=== PATIENT | male | born 1965 | race Caucasian/White ===

== ENCOUNTER 2020-10-26 07:34 | Outpatient (REF) | payer OTHER, SELFPAY ==
[2020-10-26 11:29] LABS: Alanine Aminotransferase 19 U/L (0-40); Albumin Level 4.4 g/dL (3.5-5.0); Alkaline Phosphatase 115 U/L (39-117); Anion Gap 14 (12-20); Aspartate Amino Transferase 13 U/L (5-37); Bilirubin Total 0.6 mg/dL (0.0-1.0); Blood Urea Nitrogen 22 mg/dL (9-16); Calcium 8.8 mg/dL (8.4-10.2); Carbon Dioxide 24 mmol/L (22-29); Chloride 102 mmol/L (96-108); Estimated Glomerular Filt Rate > 60; Glucose Random 198 mg/dL (60-115); Potassium 4.5 mmol/l (3.3-5.1); Sodium 135 mmol/L (135-145); Total Protein 6.6 g/dL (6.5-8.0)
[2020-10-26 11:40] LABS: Estimated Average Glucose 174 mg/dL; Hemoglobin A1c % 7.7 %
[2020-10-26 11:42] LABS: Creatinine Urine 117.11 mg/dL; Microalbum/Creatinine Ratio Ur 9.3 ug/mg cr
[2020-10-27 13:37] LABS: Immunoglobulin A 179 mg/dL (47-310)
[2020-10-28 14:58] LABS: Transglutaminase Ab IgG 2 U/mL; Transglutaminase IgA 1 U/mL
[2020-10-29 16:22] LABS: Gliadin Deamidated IgA Ab 3 Units; Gliadin Deamidated IgG Ab 1 Units
[2020-10-30 15:37] LABS: Endomysial IgA Antibody Negative (Negative)
== END 2020-10-26 07:35 | disposition home or self-care (01) ==
LOC: HO.HMGCLDS 07:34
PROVIDERS: PCP Internal Medicine; Visit Provider Internal Medicine
DX: R19.7 Diarrhea, unspecified (principal); I10 Essential (primary) hypertension; G47.9 Sleep disorder, unspecified; E11.9 Type 2 diabetes mellitus without complications; F41.9 Anxiety disorder, unspecified; R80.9 Proteinuria, unspecified; F17.200 Nicotine dependence, unspecified, uncomplicated
CPT/HCPCS: 36415; 80053; 82043; 82784; 83036; 83516; 86255; 86256

== ENCOUNTER 2020-11-07 07:19 | Day surgery (SDC) | payer OTHER, SELFPAY ==
[2020-11-01 15:01] VITALS: BMI 27.3
--- NOTE | 2020-11-06 10:18 | HO.ANESPROP2 ---
Documented by User: Flaquita Davis 11/06/20 13:50 HPI - Anesthesia Eval Consult details Narrative: 55yo M for Colonoscopy PMFSH Past Medical History Medical History (Updated 11/06/20 @ 13:50 by Flaquita Davis) Anxiety CAD (coronary artery disease) Chronic back pain Depression Diabetes History of kidney stones Hx of myocardial infarction Hyperlipidemia Hypertension On beta marii at home PONV (postoperative nausea and vomiting) Family History Family History (Updated 11/05/20 @ 11:39 by Debra Zuniga, RMA, OCCUPATIONAL SAFETY AND HEALTH MANAGER) Father CAD (coronary artery disease) HTN (hypertension) Hyperlipidemia Mother No problems noted. Brother No problems noted. Daughter No problems noted. Daughter No problems noted. Surgical History Surgical History (Updated 11/01/20 @ 14:52 by Maryjane Mooney) History of amputation of finger of left hand History of back surgery History of lithotripsy Hx of colonoscopy Hx of coronary angioplasty Hx of tonsillectomy Social History Social History Smoking Status: Current every day smoker Packs Per Day: 0.5 Cigarettes Per Day: 10.0 Smoked in Last 30 Days: Yes Patient Interested in Nicotine Replacement: No Patient Given Instructions on How to Stop Smoking: Yes Date Education Initiated: 11/01/20 Use of substances other than those prescribed or required for medical reasons: No Substance Use Type Other:: Rx Marijuana Substance Use Frequency: Daily Advance Directives: No Advance Directives Information Provided: No Advance Directives on File: No Recently lost weight without trying: No Meds Allergies Allergy/AdvReac Type Severity Reaction Status Date / Time lisinopril [LISINOPRIL] Allergy Unknown TONGUE Verified 11/07/20 08:04 SWELLING, anaphylaxis, swelling Home Medications Medication Instructions Recorded Confirmed Type allopurinol 1 tab PO DAILY 11/01/20 11/01/20 History atorvastatin 1 tab PO DAILY 11/01/20 11/01/20 History losartan 1 tab PO DAILY 11/01/20 11/01/20 History metformin 1 tab PO BID 11/01/20 11/01/20 History metoprolol succinate 1 tab PO DAILY 11/01/20 11/01/20 History potassium citrate 2 tab PO BID 11/01/20 11/01/20 History Exam Exam Date and Time: November 06, 2020 1018 Height,Weight and Vital Signs: Height 6 ft 3 in Weight 99.337 kg Pertinent Lab Results Pertinent Lab Results: Laboratory Tests 07/04/20 10/26/20 07:52 07:46 WBC 10.5 Hgb 14.6 Hct 43.4 Plt Count 169 Sodium 135 Potassium 4.5 Chloride 102 Carbon Dioxide 24 BUN 22 H Creatinine 1.09 Assessment and Plan Assessment Anesthesia Assessment: Chart Reviewed Documented by User: Shanna Rodriguez 11/07/20 08:38 PMFSH Past Medical History Medical History (Updated 11/06/20 @ 13:50 by Flaquita Davis) Anxiety CAD (coronary artery disease) Chronic back pain Depression Diabetes History of kidney stones Hx of myocardial infarction Hyperlipidemia Hypertension On beta marii at home PONV (postoperative nausea and vomiting) Family History Family History (Updated 11/05/20 @ 11:39 by Debra Zuniga, RMA, OCCUPATIONAL SAFETY AND HEALTH MANAGER) Father CAD (coronary artery disease) HTN (hypertension) Hyperlipidemia Mother No problems noted. Brother No problems noted. Daughter No problems noted. Daughter No problems noted. Surgical History Surgical History (Updated 11/01/20 @ 14:52 by Maryjane Mooney) History of amputation of finger of left hand History of back surgery History of lithotripsy Hx of colonoscopy Hx of coronary angioplasty Hx of tonsillectomy Social History Social History Smoking Status: Current every day smoker Packs Per Day: 0.5 Cigarettes Per Day: 10.0 Smoked in Last 30 Days: Yes Patient Interested in Nicotine Replacement: No Patient Given Instructions on How to Stop Smoking: Yes Date Education Initiated: 11/01/20 Use of substances other than those prescribed or required for medical reasons: No Substance Use Type Other:: Rx Marijuana Substance Use Frequency: Daily Advance Directives: No Advance Directives Information Provided: No Advance Directives on File: No Recently lost weight without trying: No Meds Allergies Allergy/AdvReac Type Severity Reaction Status Date / Time lisinopril [LISINOPRIL] Allergy Unknown TONGUE Verified 11/07/20 08:04 SWELLING, anaphylaxis, swelling Home Medications Medication Instructions Recorded Confirmed Type allopurinol 1 tab PO DAILY 11/01/20 11/01/20 History atorvastatin 1 tab PO DAILY 11/01/20 11/01/20 History losartan 1 tab PO DAILY 11/01/20 11/01/20 History metformin 1 tab PO BID 11/01/20 11/01/20 History metoprolol succinate 1 tab PO DAILY 11/01/20 11/01/20 History potassium citrate 2 tab PO BID 11/01/20 11/01/20 History Exam Airway Mallampati Class: II (Sip water with meds) TM Dist: >3cm Neck ROM: Full Heart: RRR Lungs: CTA BL Assessment and Plan Assessment Anesthesia Assessment: Anesthesia Plan Discussed and Chart Reviewed Final Anesthetic Review NPO: Yes ASA Class: II Final Preanesthetic Review: Meds/Allgs Chart Reviewed and Consent Obtained/Reviewed Patient Risk: Intermediate Procedure Risk: Intermediate Anesthetic Plan Anesthetic Plan: MAC: Disposition: Standard PACU
[2020-11-07 08:05] VITALS: BP 119/75; PULSE 65; RESP 18; TEMP 36.1; O2SAT 98
[2020-11-07] MEDS: Lactated Ringers 1,000 ML 100 ML IVCONT (08:14)
[2020-11-07 08:29] LABS: Glucose, Whole Blood 183 mg/dL (60-115)
[2020-11-07 09:37] VITALS: BP 103/59; PULSE 60; RESP 14; TEMP 36.4; O2SAT 94
--- NOTE | 2020-11-07 09:42 | PM.OP ---
Brief Operative Note Date of Service: 11/07/20 Pre-op diagnosis: Screening History of colon polyps Post-op diagnosis: other (Colon polyps, Diverticulosis, Internal hemorrhoids) Procedure: Colonoscopy to cecum and TI with snare polypectomy, biopsy and removal of polyps, and placement of 1 Resolution clip on the cecal polypectomy site Surgeon: Arnol Fonseca Anesthesia: MAC Estimated blood loss (mL): 4.0 Pathology: other (A. Cecal polyp B. Ascending colon polyps C. Polyp at 50cm D. Transverse colon polyp E. Rectal polyp) Condition: stable Disposition: PACU
[2020-11-07 09:58] VITALS: BP 114/83; PULSE 58; RESP 16; TEMP 36.4; O2SAT 97
--- NOTE | 2020-11-07 10:21 | HO.POSTANES ---
Post Anesthesia Evaluation Post Anesthesia Evaluation Vital Signs: Vital Signs Temp Pulse Resp BP Pulse Ox 11/07/20 09:58 97.5 F 58 16 114/83 97 11/07/20 09:37 97.5 F 60 14 103/59 L 94 11/07/20 08:05 97 F 65 18 119/75 98 Anesthesia: Monitored Mental Status: Awake Pain Control: Satisfactory Nausea/Vomiting: None Hydration: Adequate Anesthesia-Related Issues: No Anes. Related Issues
--- NOTE | 2020-11-07 10:52 | OP_ITS ---
SURGEON: Arnol Fonseca MD INDICATIONS: Full consent has been obtained from him for this, including risks of bleeding and perforation. PREOPERATIVE DIAGNOSIS: POSTOPERATIVE DIAGNOSIS: PROCEDURE PERFORMED: Colonoscopy to cecum and terminal ileum with snare polypectomy, biopsy and removal of polyps, and placement of a resolution clip on the cecal polypectomy site. ESTIMATED BLOOD LOSS: COMPLICATIONS: ANESTHESIA: Monitored anesthesia care. ASSISTANTS: SPECIMENS: PREOPERATIVE DIAGNOSES: Colorectal cancer screening and personal history of tubular adenoma of the colon. POSTOPERATIVE DIAGNOSES: Colorectal cancer screening and personal history of tubular adenoma of the colon, colon polyps, diverticulosis and internal hemorrhoids. DESCRIPTION OF PROCEDURE: The patient was placed in the left lateral decubitus position. The digital rectal exam revealed no abnormalities. The Olympus video pediatric colonoscope was entered into the rectum and advanced easily to the cecum. Once in the cecum, I did identify cecal pouch with appendiceal orifice and a normal-appearing ileocecal valve. The terminal ileum was cannulated and appeared normal. The scope was withdrawn back in the colon. The entire cecum was well visualized. In the cecum, outside the appendiceal orifice, was an approximately 5 or 6 mm grossly adenomatous polyp. This was snared and recovered by suction. There was some persistent oozing, which was initially cauterized and then a single resolution clip was placed on the polypectomy site with good hemostasis. The area was irrigated and observed and there was no further bleeding. The scope was slowly withdrawn assessing all mucosal surfaces carefully. Preparation was excellent. In the ascending colon were multiple polyps between 5 and 8 mm in size which were all snared and recovered by suction. There were 1 or 2 smaller polyps which were approximately 2 or 3 mm in diameter and were completely removed with cold biopsy forceps. These were all placed in the same container. All of the polypectomy sites done with the snare appeared clean, without any sign of residual polyp nor bleeding. Of note, one of the polyps appeared somewhat atypical with a very long stalk and almost appeared to be consistent with a pseudopolyp, although there was no evidence of any inflammatory bowel disease. In the transverse colon was a flat approximately 6 mm grossly adenomatous polyp, which was snared and recovered by suction. The polypectomy site appeared clean, without any sign of residual polyp nor bleeding. At 50 cm, there was another grossly adenomatous polyp, 8 mm in diameter, which was snared and recovered by suction. The polypectomy site appeared clean, without any sign of residual polyp nor bleeding. In the rectum, was an approximately 10 mm polyp, which was snared and recovered by suction. The polypectomy site appeared clean, without any sign of residual polyp nor bleeding. I did not visualize any other polyps, colitis, nor angiodysplasia. There was a mild amount of sigmoid diverticulosis. In the rectum, the scope was retroflexed visualizing internal hemorrhoids, but no other pathology. The rectal mucosa appeared normal. The scope was straightened and withdrawn from the patient. He tolerated the procedure well and was returned to the recovery area in stable condition. IMPRESSION: 1. Colon polyps, status post snare polypectomy, and biopsy and removal. 2. Placement of a single resolution clip on the cecal polypectomy site. 3. Diverticulosis. 4. Internal hemorrhoids. PLAN: The results of the pathology will be checked. Given the multiple number of polyps today, I would recommend a repeat colonoscopy in 3 years for further screening and surveillance. He was advised not to use any aspirin nor NSAIDs for at least 1 week. He will otherwise see me on a p.r.n. basis. This has been discussed with his . MD TEJAS Flores/YULY / [id number] MTDJessi
== END 2020-11-07 10:25 | disposition home or self-care (01) ==
PROVIDERS: PCP Internal Medicine; Visit Provider Internal Medicine
PROC: 0DJD8ZZ Inspection of Lower Intestinal Tract, Via Natural or Artificial Opening Endoscopic (ICD-10-PCS; CPT 45378; principal; 2020-11-07 08:30)
DX: Z12.11 Encounter for screening for malignant neoplasm of colon (principal); D12.0 Benign neoplasm of cecum; D12.2 Benign neoplasm of ascending colon; D12.3 Benign neoplasm of transverse colon; D12.8 Benign neoplasm of rectum; K57.30 Diverticulosis of large intestine without perforation or abscess without bleeding; K64.8 Other hemorrhoids; Z86.010 Personal history of colon polyps; E11.9 Type 2 diabetes mellitus without complications; Z79.84 Long term (current) use of oral hypoglycemic drugs
CPT/HCPCS: 45385; 45380; 82947; 88305

== ENCOUNTER 2021-03-11 08:38 | Outpatient (REF) | payer OTHER, SELFPAY ==
[2021-03-11 11:14] LABS: MANUAL DIFF FLAG NO
[2021-03-11 11:44] LABS: Basophils Percent Auto 0.4 % (0-2); Eosinophils Absolute Auto 0.2 X10*3/uL (0.0-0.4); Eosinophils Percent Auto 1.9 % (0-4); Hematocrit 45.3 % (42-52); Imm Gran Abs Auto 0.02 X10*3/uL (0.00-0.03); Imm Gran Pct Auto 0.2 % (0.0-0.4); Lymphocytes Absolute Auto 3.5 X10*3/uL (1.2-4.9); Lymphocytes Percent Auto 36.7 % (20-40); Mean Corpuscular HGB Conc 33.1 g/dl (31.0-36.0); Mean Corpuscular Hemoglobin 32.1 pg (27.0-33.0); Mean Corpuscular Volume 96.8 fL (80-98); Mean Platelet Volume 10.7 fL (9.4-12.4); Monocytes Absolute Auto 0.8 X10*3/uL (0.1-1.2); Monocytes Percent Auto 8.5 % (2-11); Neutrophils Percent Auto 52.3 % (45-73); Platelet Count 172 X10*3/uL (160-400); Red Blood Count 4.68 X10*6/uL (4.60-5.80); Red Cell Distribution Width 13.3 % (11.0-16.0); White Blood Count 9.6 X10*3/uL (4.8-10.8)
[2021-03-11 11:48] LABS: Alanine Aminotransferase 13 U/L (0-40); Albumin Level 4.4 g/dL (3.5-5.0); Alkaline Phosphatase 111 U/L (39-117); Anion Gap 16 (12-20); Aspartate Amino Transferase 12 U/L (5-37); Bilirubin Direct 0.2 mg/dL (0.0-0.5); Bilirubin Total 0.6 mg/dL (0.0-1.0); Blood Urea Nitrogen 13 mg/dL (9-16); Calcium 8.8 mg/dL (8.4-10.2); Carbon Dioxide 23 mmol/L (22-29); Chloride 103 mmol/L (96-108); Cholesterol 131 mg/dL; Estimated Glomerular Filt Rate > 60; Glucose Fasting 173 mg/dL (60-99); HDL Cholesterol 28 mg/dL; LDL Cholesterol Calculated 57 mg/dl; Sodium 138 mmol/L (135-145); Total Protein 6.7 g/dL (6.5-8.0); Triglycerides 231 mg/dL
[2021-03-11 12:11] LABS: Estimated Average Glucose 151 mg/dL; Hemoglobin A1c % 6.9 %
== END 2021-03-11 08:39 | disposition home or self-care (01) ==
LOC: HO.HMGCLDS 08:38
PROVIDERS: PCP Internal Medicine; Visit Provider Internal Medicine
DX: I10 Essential (primary) hypertension (principal); E11.9 Type 2 diabetes mellitus without complications; E78.5 Hyperlipidemia, unspecified; F32.9 Major depressive disorder, single episode, unspecified; F41.9 Anxiety disorder, unspecified
CPT/HCPCS: 36415; 80048; 80061; 80076; 83036; 85025

== ENCOUNTER 2021-07-10 10:25 | Outpatient (REF) | payer OTHER, SELFPAY ==
[2021-07-10 11:11] LABS: MANUAL DIFF FLAG NO
[2021-07-10 11:18] LABS: Basophils Percent Auto 0.4 % (0-2); Eosinophils Absolute Auto 0.1 X10*3/uL (0.0-0.4); Eosinophils Percent Auto 0.9 % (0-4); Hematocrit 46.9 % (42-52); Hemoglobin 15.6 g/dl (14.0-18.0); Imm Gran Abs Auto 0.03 X10*3/uL (0.00-0.03); Imm Gran Pct Auto 0.3 % (0.0-0.4); Lymphocytes Absolute Auto 3.9 X10*3/uL (1.2-4.9); Lymphocytes Percent Auto 37.1 % (20-40); Mean Corpuscular HGB Conc 33.3 g/dl (31.0-36.0); Mean Corpuscular Hemoglobin 31.8 pg (27.0-33.0); Mean Corpuscular Volume 95.7 fL (80-98); Mean Platelet Volume 9.9 fL (9.4-12.4); Monocytes Absolute Auto 0.8 X10*3/uL (0.1-1.2); Neutrophils Absolute Auto 5.5 X10*3/uL (2.0-8.3); Neutrophils Percent Auto 53.3 % (45-73); Platelet Count 206 X10*3/uL (160-400); Red Cell Distribution Width 13.2 % (11.0-16.0); White Blood Count 10.4 X10*3/uL (4.8-10.8)
[2021-07-10 12:38] LABS: Alanine Aminotransferase 20 U/L (0-40); Albumin Level 4.7 g/dL (3.5-5.0); Alkaline Phosphatase 110 U/L (39-117); Anion Gap 12 (12-20); Aspartate Amino Transferase 22 U/L (5-37); Bilirubin Total 0.7 mg/dL (0.0-1.0); Blood Urea Nitrogen 20 mg/dL (9-16); Calcium 10.2 mg/dL (8.4-10.2); Carbon Dioxide 26 mmol/L (22-29); Chloride 106 mmol/L (96-108); Estimated Glomerular Filt Rate 54; Glucose Random 113 mg/dL (60-115); Potassium 5.4 mmol/L (3.3-5.1); Sodium 139 mmol/L (135-145); Total Protein 7.2 g/dL (6.5-8.0)
[2021-07-10 12:42] LABS: Estimated Average Glucose 140 mg/dL; Hemoglobin A1c % 6.5 %
[2021-07-11 13:52] LABS: LDL Cholesterol Direct 112 mg/dL (<100)
== END 2021-07-10 10:26 | disposition home or self-care (01) ==
LOC: HO.HMGCLDS 10:25
PROVIDERS: PCP Internal Medicine; Visit Provider Internal Medicine
DX: Z00.01 Encounter for general adult medical examination with abnormal findings (principal); F41.9 Anxiety disorder, unspecified; F32.9 Major depressive disorder, single episode, unspecified; E11.9 Type 2 diabetes mellitus without complications; E78.5 Hyperlipidemia, unspecified; I10 Essential (primary) hypertension
CPT/HCPCS: 36415; 80053; 83036; 83721; 85025

== ENCOUNTER 2021-07-12 07:15 | Outpatient (REF) | payer OTHER, SELFPAY ==
[2021-07-12 12:07] LABS: Anion Gap 15 (12-20); Blood Urea Nitrogen 24 mg/dL (9-16); Carbon Dioxide 23 mmol/L (22-29); Chloride 104 mmol/L (96-108); Estimated Glomerular Filt Rate > 60; Potassium 4.7 mmol/L (3.3-5.1); Sodium 137 mmol/L (135-145)
== END 2021-07-12 07:16 | disposition home or self-care (01) ==
LOC: HO.HMGCLDS 07:15
PROVIDERS: PCP Internal Medicine; Visit Provider Internal Medicine
DX: E78.5 Hyperlipidemia, unspecified (principal)
CPT/HCPCS: 36415; 80051; 82565; 84520

== ENCOUNTER 2022-01-06 07:57 | Outpatient (REF) | payer OTHER, SELFPAY ==
[2022-01-06 11:17] LABS: MANUAL DIFF FLAG NO
[2022-01-06 11:24] LABS: Basophils Absolute Auto 0.1 X10*3/uL (0.0-0.2); Basophils Percent Auto 0.5 % (0-2); Eosinophils Absolute Auto 0.2 X10*3/uL (0.0-0.4); Eosinophils Percent Auto 1.6 % (0-4); Hematocrit 42.9 % (42.0-52.0); Hemoglobin 14.5 g/dl (14.0-18.0); Imm Gran Abs Auto 0.06 X10*3/uL (0.00-0.03); Imm Gran Pct Auto 0.5 % (0.0-0.4); Lymphocytes Absolute Auto 3.3 X10*3/uL (1.2-4.9); Lymphocytes Percent Auto 30.4 % (20-40); Mean Corpuscular HGB Conc 33.8 g/dl (31.0-36.0); Mean Corpuscular Hemoglobin 32.1 pg (27.0-33.0); Mean Corpuscular Volume 94.9 fL (80.0-98.0); Mean Platelet Volume 10.5 fL (9.4-12.4); Monocytes Absolute Auto 0.8 X10*3/uL (0.1-1.2); Monocytes Percent Auto 7.2 % (2-11); Neutrophils Absolute Auto 6.5 x10*3/uL (2.0-8.3); Neutrophils Percent Auto 59.8 % (45-73); Platelet Count 170 X10*3/uL (160-400); Red Blood Count 4.52 X10*6/uL (4.60-5.80); Red Cell Distribution Width 12.5 % (11.0-16.0); White Blood Count 10.9 X10*3/uL (4.8-10.8)
[2022-01-06 11:37] LABS: Alanine Aminotransferase 17 U/L (0-40); Albumin Level 4.4 g/dL (3.5-5.0); Alkaline Phosphatase 122 U/L (39-117); Anion Gap 11 (12-20); Aspartate Amino Transferase 15 U/L (5-37); Bilirubin Total 0.7 mg/dL (0.0-1.0); Blood Urea Nitrogen 12 mg/dL (9-16); Calcium 9.2 mg/dL (8.4-10.2); Carbon Dioxide 26 mmol/L (22-29); Chloride 104 mmol/L (96-108); Cholesterol 141 mg/dL; Estimated Glomerular Filt Rate > 60; Glucose Fasting 208 mg/dL (60-99); HDL Cholesterol 32 mg/dL; LDL Cholesterol Calculated 64 mg/dl; Potassium 4.2 mmol/L (3.3-5.1); Sodium 137 mmol/L (135-145); Total Protein 6.8 g/dL (6.5-8.0); Triglycerides 227 mg/dL
[2022-01-06 11:55] LABS: Creatinine Urine 221.26 mg/dL; Microalbum/Creatinine Ratio Ur 18.9 ug/mg cr
[2022-01-06 12:03] LABS: Estimated Average Glucose 154 mg/dL
== END 2022-01-06 07:58 | disposition home or self-care (01) ==
LOC: HO.HMGCLDS 07:57
PROVIDERS: Visit Provider Internal Medicine
DX: E11.9 Type 2 diabetes mellitus without complications (principal); E78.9 Disorder of lipoprotein metabolism, unspecified; F33.9 Major depressive disorder, recurrent, unspecified; F41.1 Generalized anxiety disorder; I10 Essential (primary) hypertension; E78.5 Hyperlipidemia, unspecified; F41.9 Anxiety disorder, unspecified
CPT/HCPCS: 36415; 80053; 80061; 82043; 83036; 85025

== ENCOUNTER → 2022-03-05 07:46 | Outpatient (BNVA) | payer OTHER, SELFPAY | PROVIDERS: PCP Internal Medicine; Referring Provider Internal Medicine; Visit Provider Internal Medicine | DX: I25.10 Atherosclerotic heart disease of native coronary artery without angina pectoris (principal); I10 Essential (primary) hypertension; E11.8 Type 2 diabetes mellitus with unspecified complications | CPT/HCPCS: 93005 ==

== ENCOUNTER → 2022-04-30 12:44 | Outpatient (REF) | payer OTHER, SELFPAY ==
--- NOTE | 2022-04-30 12:47 | CA_ITS ---
Transthoracic Echocardiogram Patient (Last, First, Middle): Patrick Meng M Gender: Male Date of : 1965 Age: 56 Procedure Date: 04/30/2022 Procedure Type: Transthoracic Echocardiogram Location: OP Height: 193.04 cm Weight: 99.79 kg BSA: 2.31 m2 Heart Rate: bpm BP: 110 / 80 mmHg Qual Research Manager: LUZ Ortiz MD: Ankur Javier MD Mine Car Dispatcher: Jordan Xiong MD Symptoms: I25.10 - Atherosclerotic heart disease of [place] coronary... Study Quality: Fair ECG Rhythm: Sinus Conclusions: - 1. Normal LV systolic function with LVEF of 55-60% with impaired relaxation filling pattern and basal and mid inferior wall motion abnormality 2. Normal cardiac valvular Doppler 3. Normal RV systolic pressure 4. No pericardial effusion Findings Left Ventricle Normal left ventricular size, thickness, and systolic function. The visually estimated ejection fraction is between 55-60%. Spectral Doppler is indicative of an impaired relaxation filling pattern. E/E prime ratio is between 8 and 15 consistent with indeterminate filling pressures. Wall Motion Rest Echo Findings The basal inferior and mid inferior segments are hypokinetic. All other scored wall segments showed normal motion. Right Ventricle Normal right ventricular cavity size and systolic function. Atria Both atria are normal in size. There is no evidence of interatrial shunt. Aortic Valve The aortic valve structure and function is likely normal. There is no aortic valve stenosis. There is no aortic valve regurgitation. Mitral Valve Normal mitral valve structure and function. There is trace mitral valve regurgitation. There is no mitral valve stenosis. Pulmonic Valve The pulmonic valve was not well visualized. Tricuspid Valve Likely normal tricuspid valve structure and function. There is trace tricuspid valve regurgitation. The right ventricular systolic pressure is normal. The right ventricular systolic pressure is 17 mmHg. Normal right atrial pressure. There is no evidence of pulmonary hypertension. Great Vessels All visible segments of the aorta are normal in size. The pulmonary artery was not well visualized. Venous The inferior vena cava is normal in size and collapses greater than 50% with inspiration. Pericardium/Pleural There is no evidence of pericardial effusion. Prior Study Comparison No prior study available for comparison. Measurements 2D Linear Measurements IVSd: 1.12 0.6-0.9/0.6-1.0 cm LVIDd: 4.69 3.9-5.3/4.2-5.9 cm LVIDd Index: 2.03 2.4-3.2/2.2-3.1 cm/m2 LVIDs: 3.23 2.0-3.6 cm LVPWd: 1.11 0.7-1.1 cm LA Diam: 3.30 2.7-3.8/3.0-4.0 cm LAIDs Index: 1.43 1.5-2.3 cm/m2 LV Mass: 237.34 67-162/88-224 g LV Mass Index: 102.74 43-95/49-115 g/m2 LVOT Diam: 2.20 3.0+(-)1.3 cm 2D Systolic Function EF 4C: 58.50 >55% EF 2C: 55.30 >55% EF BiP: 56.90 >55% Mitral Valve MV Pk E: 0.61 MV PK A: 0.54 MV Decel Time: 356.00 E/A: 1.10 E'Lateral: 8.70 E'Medial: 8.05 E/E' Med: 7.60 E/E' Lat: 7.00 PHT: 104.00 MVA PHT: 2.12 Decel Fallon: 1.71 Aortic Valve AoV Pk Trey: 1.33 AoV Mn Trey: 0.77 AoV VTI: 0.23 AoV Pk Grad: 7.00 Aov Mn Grad: 3.00 KEVIN Cont.VTI: 3.43 LVOT LVOT Pk Trey: 1.13 LVOT Mn Trey: 0.73 LVOT VTI: 0.21 LVOT Pk Grad: 5.00 LVOT Mn Grad: 3.00 LVOT Diam: 2.20 LVOT Area: 3.80 Diastolic Function MV Pk E: 0.61 MV Pk A: 0.54 E/A: 1.10 E'Medial: 8.05 E/E' Med: 7.60 E' Laterial: 8.70 E/E' Lat: 7.00 Right Ventricle TAPSE (mm): 18.90 TVS' Trey: 10.30 Tricuspid Valve TR Pk Trey: 1.85 TR Pk Grad: 14.00 RA Press: 3.00 RVSP: 17.00 Great Vessels Aorta Sinus of Valsalva: 3.46 2.0-3.[address] [place]: 3.26 1.7-3.4 cm Ao Asc: 3.70 2.1-3.4 cm Updated in Other Vendor System with Status of Final Jordan Xiong MD electronically signed on 05/01/2022 12:36:39 PM with status of Final
== END ==
LOC: HO.CARD 12:44
PROVIDERS: PCP Internal Medicine; Visit Provider Internal Medicine
DX: I25.10 Atherosclerotic heart disease of native coronary artery without angina pectoris (principal)
CPT/HCPCS: 93306

== ENCOUNTER → 2022-09-17 08:11 | Outpatient (REF) | payer OTHER, SELFPAY ==
--- NOTE | ~2022-09-17 | NM_ITS ---
Exercise Myocardial perfusion study Indication: Atherosclerotic coronary artery disease to evaluate for myocardial ischemia Technique: The patient was brought in for an exercise perfusion study on 09/17/2022. Patient performed exercise as per Bi protocol and was injected 35 mCi of sestamibi was given intravenously one target HR was achieved. Images were obtained using the SPECT gamma camera interlaced with the gating device. Images were obtained in supine position. Resting perfusion study was performed on 09/24/2022. Patient was administered 35 mCi of sestamibi intravenously at rest. Images were then obtained in supine position. Images obtained with and without CT attenuation. Total DLP 90 mGy-cm. Images were processed with the software and compared side to side in short axis, horizontal long axis and vertical long axis views. Findings: The stress perfusion study showed not images show moderately reduced uptake in the inferior wall of the LV myocardium. Remainder of the LV myocardium is normally perfused. Attenuation corrected images show normalized uptake in the inferior wall as well as normal uptake in the possible basal inferior remainder of the LV myocardium.. The gated study shows normal LV systolic function with calculated LVEF of 64%. LV cavity is normal in size. The gated study shows normal systolic wall thickening and contraction of all segments with probably mild hypokinesis of the basal inferior segment. There is no transient ischemic dilation. Resting study shows no change in perfusion pattern compared to stress perfusion study. Gating at rest reveals possible basal inferior wall motion with ejection fraction at 57%. The findings are consistent with no clear evidence of ischemia. Basal attenuation corrected. Normal uptake in all segments suggestive normal myocardial perfusion.. NM/NM cardiolite stress test Impression: 1. Normal myocardial perfusion, small area of nontransmural infarct of the basal inferior wall cannot be entirely ruled out 2. Gated LVEF is 64% 3. Transient ischemic dilatation not present Stress EKG is negative for ischemia
--- NOTE | 2022-09-17 08:13 | CA_ITS ---
Acquisition Time: 2022-09-17 08:33:40 Total Exercise Time: 00:07:05 Test Indications: LAD Medications: Protocol: ROMI Max HR: 144 BPM 88% of Pred: 162 BPM Max BP: 172/078 mmHG Max Work Load: 8.6 METS Exercise stress test with exercise 7 min 5 sec of Romi protocol, acheiving 87% MPHR with report of leg fatigue and request to stop, with mod sob, no chest discomfort, without arrythmia, with normotensive response to exercise, without EKG changes meeting criteria for ischemia, with ST scooping in recovery which is nonspecific. Breathing quickly improved with rest. Nuclear images pending. Test reviewed with Dr Bentley. Referred By: Ankur Javier Overread By: VIET MORTENSEN
== END ==
LOC: HO.CARD 08:11
PROVIDERS: PCP Internal Medicine; Visit Provider Internal Medicine
DX: I25.10 Atherosclerotic heart disease of native coronary artery without angina pectoris (principal)
CPT/HCPCS: 78452; 93017; A9500

== ENCOUNTER 2022-11-05 08:57 | Outpatient (REF) | payer OTHER, SELFPAY ==
[2022-11-05 11:48] LABS: Estimated Average Glucose 212 mg/dL
[2022-11-05 12:08] LABS: Alanine Aminotransferase 17 U/L (0-40); Albumin Level 4.4 g/dL (3.5-5.0); Alkaline Phosphatase 102 U/L (39-117); Anion Gap 10 (12-20); Aspartate Amino Transferase 14 U/L (5-37); Bilirubin Total 0.4 mg/dL (0.0-1.0); Blood Urea Nitrogen 11 mg/dL (9-16); Carbon Dioxide 28 mmol/L (22-29); Chloride 105 mmol/L (96-108); Cholesterol 129 mg/dL; Estimated Glomerular Filt Rate > 60; Glucose Fasting 257 mg/dL (60-99); HDL Cholesterol 30 mg/dL; LDL Cholesterol Calculated 79 mg/dl; Potassium 4.1 mmol/L (3.3-5.1); Sodium 139 mmol/L (135-145); Total Protein 6.5 g/dL (6.5-8.0); Triglycerides 104 mg/dL
[2022-11-05 12:38] LABS: Creatinine Urine 133.44 mg/dL; Microalbum/Creatinine Ratio Ur 28.4 ug/mg cr
== END 2022-11-05 08:58 | disposition home or self-care (01) ==
LOC: HO.HMGCLDS 08:57
PROVIDERS: PCP Internal Medicine; Visit Provider Internal Medicine
DX: E11.9 Type 2 diabetes mellitus without complications (principal); E78.9 Disorder of lipoprotein metabolism, unspecified; F33.9 Major depressive disorder, recurrent, unspecified; F41.1 Generalized anxiety disorder; G47.9 Sleep disorder, unspecified; I10 Essential (primary) hypertension; I25.10 Atherosclerotic heart disease of native coronary artery without angina pectoris
CPT/HCPCS: 36415; 80053; 80061; 82043; 83036

== ENCOUNTER → 2023-03-04 12:38 | Outpatient (BNVA) | payer OTHER, SELFPAY | PROVIDERS: PCP Internal Medicine; Referring Provider Internal Medicine; Visit Provider Internal Medicine | DX: I25.10 Atherosclerotic heart disease of native coronary artery without angina pectoris (principal); I10 Essential (primary) hypertension | CPT/HCPCS: 93005 ==

== ENCOUNTER 2023-06-17 06:32 | Outpatient (REF) | payer OTHER, SELFPAY ==
[2023-06-17 12:14] LABS: Alanine Aminotransferase 16 U/L (0-40); Albumin Level 4.2 g/dL (3.5-5.0); Alkaline Phosphatase 106 U/L (39-117); Aspartate Amino Transferase 15 U/L (5-37); Bilirubin Total 0.3 mg/dL (0.0-1.0); Blood Urea Nitrogen 19 mg/dL (9-16); Calcium 9.6 mg/dL (8.4-10.2); Chloride 104 mmol/L (96-108); Estimated Glomerular Filt Rate 59; Glucose Random 195 mg/dL (60-115); Potassium 4.4 mmol/L (3.3-5.1); Sodium 139 mmol/L (135-145); Total Protein 6.9 g/dL (6.5-8.0)
[2023-06-17 20:38] LABS: Carbon Dioxide 22 mmol/L (22-29)
== END 2023-06-17 06:33 | disposition home or self-care (01) ==
LOC: HO.HMGCLDS 06:32
PROVIDERS: PCP Internal Medicine; Visit Provider Internal Medicine
DX: E78.9 Disorder of lipoprotein metabolism, unspecified (principal); F33.9 Major depressive disorder, recurrent, unspecified; G47.9 Sleep disorder, unspecified; I10 Essential (primary) hypertension; F41.1 Generalized anxiety disorder
CPT/HCPCS: 36415; 80053

== ENCOUNTER 2023-06-24 12:11 | Outpatient (AMB) | payer OTHER, SELFPAY ==
[2023-06-24 12:13] VITALS: BP 138/86; PULSE 66; O2SAT 98; BMI 27.1
--- NOTE | 2023-06-24 12:13 | A.OFFPC_ITS ---
Vital Signs 06/24/23 12:13 Height 6 ft 3 in Weight 217 lb 2 oz BMI 27.1 BP 138/86 Blood Pressure Location Lt brachial Position Sitting Pulse 66 Pulse Source Pulse Oximeter Pulse Oximetry (%) 98 Oxygen Delivery Method Room Air Intake Visit Reasons: med follow up Allergies lisinopril [LISINOPRIL] Allergy (Unknown, Verified 06/24/23 12:13) TONGUE SWELLING, anaphylaxis, swelling Medication List - Last Reconciled 06/24/23 by Zoila Damian MD amlodipine 5 mg PO DAILY 90 days aspirin (Adult Low Dose Aspirin) 81 mg PO DAILY atorvastatin 80 mg PO DAILY blood sugar diagnostic (FreeStyle Lite Strips) Use to check fasting blood sugar daily. blood-glucose meter (FreeStyle Lite Meter kit) Use to check fasting blood sugar daily glipizide 10 mg PO BID 90 days lancets (FreeStyle Lancets) Use to check fasting blood sugar daily. metoprolol succinate ER 100 mg PO DAILY pioglitazone 45 mg PO DAILY quetiapine (Seroquel) 50 mg PO BEDTIME 90 days sertraline 200 mg (2 x 100 mg) PO DAILY 90 days Tobacco use date assessed: 06/24/23 Dental Screening Dental Screen Date: 06/24/23 Did you have a dental visit in the last 12 months?: Yes Did you have a dental problem in the last 6 months where you did not have access to dental care?: No Was dental information given to patient?: No HPI med follow up HPI Details Patient is 57-year-old male came in today for his follow-up appointment Hypertension: Patient is on amlodipine 5 mg and metoprolol 100 mg blood pressure is stable.? Continue to a statin to 80 mg for lipid control. No side effects Diabetes: he is taking glipizide 10 mg b.i.d., pioglitazone 15 mg his hemoglobin A1c came back at 8.4 I am increasing pioglitazone to 45 mg Major depression, patient is taking Seroquel 50 mg as a sleep aid at night and sertraline 200 mg daily. ?. . History of coronary artery disease with angioplasty 2006 currently seeing cardiology [facility] Follow-up 3 months [facility] Medical History CAD (coronary artery disease) Chronic back pain Depression History of kidney stones Hx of myocardial infarction On beta marii at home PONV (postoperative nausea and vomiting) Type 2 diabetes mellitus with unspecified complications Surgical History History of amputation of finger of left hand History of back surgery History of lithotripsy Hx of colonoscopy Hx of coronary angioplasty Hx of tonsillectomy Family History Father CAD (coronary artery disease) HTN (hypertension) Hyperlipidemia Mother No problems noted. Brother No problems noted. Daughter No problems noted. Daughter No problems noted. Social History Housing: House Alcohol intake: current Alcohol intake frequency: holidays/special occasions only Patient Tobacco Use Status: Current everyday Tobacco user Tobacco use type: Cigarette Cigarette Packs Per Day: 0.5 Cigarettes Per Day: 10.0 e-Cigarette/Vaping Use: Never Used service: No Current occupational status: retired Cognitive needs: No Hearing needs: No Vision needs: No Questionnaire PHQ-9 Over the last 2 weeks, how often have you been bothered by any of the following problems? 1. Little interest or pleasure in doing things: not at all 2. Feeling down, depressed, or hopeless: more than half the days 3. Trouble falling or staying asleep, or sleeping too much: nearly every day 4. Feeling tired or having little energy: nearly every day 5. Poor appetite or overeating: more than half the days 6. Feeling bad about yourself - or that you are a failure or have let yourself or your family down: more than half the days 7. Trouble concentrating on things, such as reading the newspaper or watching television: not at all 8. Moving or speaking so slowly that other people could have noticed. Or the opposite - being so fidgety or restless that you have been moving around a lot more than usual: nearly every day 9. Thoughts that you would be better off or of hurting yourself in some way: not at all Total score: 15 Source: Developed by Drs. Arnol Reynolds, Clary Martinez, Jose Coleman and colleagues, with an educational cornelio from [employer]. Thrive Questionnaire Date Thrive assessed: 06/24/23 I am a: Patient What is your living situation today?: I have a steady place to live Within the past 12 months, did the food you bought not last and you didn't have the money to get more?: Never true Within the past 12 months, did you worry whether your food would run out before you got money to buy more?: Never true Do you have trouble paying for medicines?: No Do you have trouble getting transportation to medical appointments?: No Do you have trouble paying your heating and electricity bill?: No Do you have trouble taking care of your child, family member or friend?: No Do you have trouble with day-to-day activities such as bathing, preparing meals, shopping, managing finances, etc.?: No Are you currently unemployed and looking for a job?: No Are you interested in more education?: No AUDIT C Alcohol Use Questionnaire (AUDIT-C) 1. How often do you have a drink containing alcohol?: Never 3. How often do you have six or more drinks on one occasion?: Never Total Score: 0 Score Reviewed/Action Taken: Yes UGO-7 AMB Questionnaire UGO-7 Date UGO - 7 assessed: 06/24/23 Feeling nervous, anxious, or on edge: 3 = Nearly every day Not being able to stop or control worryin = Nearly every day Worrying too much about different things: 3 = Nearly every day Trouble relaxin = Nearly every day Being so restless that it is hard to sit still: 3 = Nearly every day Becoming easily annoyed or irritable: 0 = Not at all Feeling afraid as if something awful might happen: 1 = Several days Total UGO-7 score (0-4 normal; 5-9 mild; 10-14 moderate; 15-21 severe): 16 Source: Developed by Drs. Arnol Reynolds, Clary Martinez, Jose Coleman and colleagues, with an educational cornelio from [employer]. Review of Systems Const Denies chills and Denies fever(s) ENT Denies epistaxis and Denies nasal discharge Card Denies chest pain Resp Denies chest congestion, Denies cough and Denies hemoptysis GI Denies diarrhea and Denies nausea Skin/Breast Denies rash Neuro Reports no additional complaints Psych Reports no additional complaints Endo Reports no additional complaints Physical exam (Primary Care) Vital Signs: Last Vital Signs Pulse 66 06/24/23 12:13 BP 138/86 06/24/23 12:13 Pulse Ox 98 06/24/23 12:13 Oxygen Delivery Method Room Air 06/24/23 12:13 BMI result Body Mass Index 27.1 Tobacco/Smoking Status: Tobacco use Status Tobacco use date assessed 06/24/23 06/24/23 12:14 Patient Tobacco Use Status Current everyday Tobacco 06/24/23 12:14 Tobacco use type Cigarette 06/24/23 12:14 e-Cigarette/Vaping Use Never Used 06/24/23 12:14 PHQ-9: PHQ-9 Score PHQ-9: Total score 15 06/24/23 12:42 Thrive Assessment: Date of Thrive Assessment Date Thrive assessed 06/24/23 06/24/23 12:42 Const General: cooperative, comfortable and no acute distress Orientation/consciousness: patient oriented x3 HENMT Head: Yes normocephalic Eyes General: appearance normal, both eyes and all related structures Neck Neck: Yes supple Resp Effort & Inspection: normal respiratory effort, no cough and no stridor Cardio Rhythm: regular rhythm Heart sounds: S1 normal heart sound present and S2 normal heart sound present Skin General skin exam: turgor normal Neuro General: patient oriented x3, tone normal and moves all extremities Extrem Right lower extremity: no edema Left lower extremity: no edema Results AMB Hemoglobin A1c AMB Hemoglobin A1c 8.4 % Last Edit by BIBIANA Saenz on 06/24/23 12:4 6 Results Reviewed Results Reviewed: Laboratory Last Values Hgb A1c (Clinic) 8.4 % (4.0-6.0) H 06/24/23 12:42 Assessment and Plan Assessment & Plan (1) Uncontrolled diabetes mellitus: (2) Hypertension, essential: Code(s): I10 - Essential (primary) hypertension (3) Difficulty sleeping: Code(s): G47.9 - Sleep disorder, unspecified (4) Lipid disorder: Code(s): E78.9 - Disorder of lipoprotein metabolism, unspecified (5) Anxiety, generalized: Code(s): F41.1 - Generalized anxiety disorder (6) Major depression, recurrent: Code(s): F33.9 - Major depressive disorder, recurrent, unspecified Plan Patient is 57-year-old male came in today for his follow-up appointment Hypertension: Patient is on amlodipine 5 mg and metoprolol 100 mg blood pressure is stable.? Continue to a statin to 80 mg for lipid control. No side effects Diabetes: he is taking glipizide 10 mg b.i.d., pioglitazone 15 mg his hemoglobin A1c came back at 8.4 I am increasing pioglitazone to 45 mg Major depression, patient is taking Seroquel 50 mg as a sleep aid at night and sertraline 200 mg daily. ?. . History of coronary artery disease with angioplasty 2006 currently seeing cardiology [facility] Follow-up 3 months Orders: Orders AMB Hemoglobin A1c Today Z13.9 - Encounter for screening, unspecified Medications: Changed From pioglitazone 15 mg PO DAILY 90 tabs 0RF To pioglitazone 45 mg PO DAILY 90 tabs 0RF Coding Level of Care Code Est Pt Level 4 (04266) Diagnoses Uncontrolled diabetes mellitus Hypertension, essential I10 Difficulty sleeping G47.9 Lipid disorder E78.9 Anxiety, generalized F41.1 Major depression, recurrent F33.9
== END 2023-06-24 13:29 | disposition home or self-care (01) ==
PROVIDERS: PCP Internal Medicine; Visit Provider Internal Medicine
DX: I10 Essential (primary) hypertension (principal); E11.9 Type 2 diabetes mellitus without complications; G47.9 Sleep disorder, unspecified; F33.9 Major depressive disorder, recurrent, unspecified; E78.9 Disorder of lipoprotein metabolism, unspecified; F41.1 Generalized anxiety disorder
CPT/HCPCS: 83036; 99214

== ENCOUNTER 2023-09-02 13:39 | Outpatient (AMB) | payer OTHER, SELFPAY ==
[2023-09-02 13:50] VITALS: BP 120/80; PULSE 77; O2SAT 95; BMI 27.3
--- NOTE | 2023-09-02 13:50 | MHC.PC.OV ---
Vital Signs 09/02/23 13:50 Height 6 ft 3 in Weight 218 lb 8 oz BMI 27.3 BP 120/80 Blood Pressure Location Rt brachial Position Sitting Pulse 77 Pulse Source Pulse Oximeter Pulse Oximetry (%) 95 Oxygen Delivery Method Room Air Intake Visit Reasons: PE Allergies lisinopril [LISINOPRIL] Allergy (Unknown, Verified 09/02/23 13:50) TONGUE SWELLING, anaphylaxis, swelling Medication List - Last Reconciled 09/02/23 by Zoila Damian MD amlodipine 5 mg PO DAILY 90 days aspirin (Adult Low Dose Aspirin) 81 mg PO DAILY atorvastatin 80 mg PO DAILY blood sugar diagnostic (FreeStyle Lite Strips) Use to check fasting blood sugar daily. blood-glucose meter (FreeStyle Lite Meter kit) Use to check fasting blood sugar daily glipizide 10 mg PO BID 90 days lancets (FreeStyle Lancets) Use to check fasting blood sugar daily. metoprolol succinate ER 100 mg PO DAILY pioglitazone 45 mg PO DAILY quetiapine (Seroquel) 50 mg PO BEDTIME 90 days sertraline 200 mg (2 x 100 mg) PO DAILY 90 days Tobacco use date assessed: 09/02/23 Dental Screening Dental Screen Date: 09/02/23 Did you have a dental visit in the last 12 months?: Yes Did you have a dental problem in the last 6 months where you did not have access to dental care?: No Was dental information given to patient?: Patient has dentist HPI PE HPI Details Patient is 57-year-old male came in today for physical exam He is due for colonoscopy 2024 Patient will have labs done before his next visit in 3 months Hypertension: Patient is on amlodipine 5 mg and metoprolol 100 mg blood pressure is stable.? Continue to a statin to 80 mg for lipid control. No side effects Diabetes: he is taking glipizide 10 mg b.i.d., pioglitazone 45 mg, patient is tolerating medications no side effects, also would recommend to control diet Major depression, patient is taking Seroquel 50 mg as a sleep aid at night and sertraline 200 mg daily. ?. . History of coronary artery disease with angioplasty 2006 currently seeing cardiology [facility] Follow-up 3 months, and physical exam 1 year [facility] Medical History Type 2 diabetes mellitus with unspecified complications History of kidney stones On beta marii at home PONV (postoperative nausea and vomiting) Chronic back pain Depression Hx of myocardial infarction CAD (coronary artery disease) Surgical History Hx of colonoscopy History of amputation of finger of left hand History of back surgery History of lithotripsy Hx of coronary angioplasty Hx of tonsillectomy Family History Father CAD (coronary artery disease) HTN (hypertension) Hyperlipidemia Mother No problems noted. Brother No problems noted. Daughter No problems noted. Daughter No problems noted. Social History Housing: House Alcohol intake: current Alcohol intake frequency: holidays/special occasions only Patient Tobacco Use Status: Current everyday Tobacco user Tobacco use type: Cigarette Cigarette Packs Per Day: 0.5 Cigarettes Per Day: 10.0 e-Cigarette/Vaping Use: Never Used service: No Current occupational status: retired Cognitive needs: No Hearing needs: No Vision needs: No Questionnaire PHQ-9 Over the last 2 weeks, how often have you been bothered by any of the following problems? 1. Little interest or pleasure in doing things: not at all 2. Feeling down, depressed, or hopeless: more than half the days 3. Trouble falling or staying asleep, or sleeping too much: nearly every day 4. Feeling tired or having little energy: nearly every day 5. Poor appetite or overeating: more than half the days 6. Feeling bad about yourself - or that you are a failure or have let yourself or your family down: more than half the days 7. Trouble concentrating on things, such as reading the newspaper or watching television: not at all 8. Moving or speaking so slowly that other people could have noticed. Or the opposite - being so fidgety or restless that you have been moving around a lot more than usual: nearly every day 9. Thoughts that you would be better off or of hurting yourself in some way: not at all Total score: 15 Depression Screening Interpretation: Positive Depression Screening Follow-up: Existing condition and In treatment Depression Screening Done: Yes [id number] - PHQ-9 Billing: Yes Source: Developed by Drs. Arnol Reynolds, Clary Martinez, Jose Coleman and colleagues, with an educational cornelio from [employer]. Thrive Questionnaire Date Thrive assessed: 06/24/23 AUDIT C Alcohol Use Questionnaire (AUDIT-C) 1. How often do you have a drink containing alcohol?: Monthly or less 2. How many drinks containing alcohol do you have on a typical day when you are drinking?: 1 or 2 3. How often do you have six or more drinks on one occasion?: Never Total Score: 1 Score Reviewed/Action Taken: Yes UGO-7 AMB Questionnaire UGO-7 Date UGO - 7 assessed: 06/24/23 Source: Developed by Drs. Arnol Reynolds, Clary Martinez, Jose Coleman and colleagues, with an educational cornelio from [employer]. Review of Systems Const Denies chills, Denies fever(s) and Denies headache(s) Eyes Denies blurry vision ENT Denies headache(s), Denies nasal discharge, Denies nasal obstruction, Denies odynophagia and Denies sinus pain Card Denies chest pain at rest and Denies chest pain with activity Resp Denies cough and Denies hemoptysis GI Denies diarrhea, Denies odynophagia, Denies vomiting and Denies hematemesis Reports as per HPI Musc Denies abnormal gait Skin/Breast Reports as per HPI Neuro Denies Neuro-related abnormal movements, Denies Abnormal speech present, Denies abnormal gait, Denies headache(s) and Denies Sensory deficit (Neuro) Psych Denies mood swings and Denies paranoia Endo Reports as per HPI Fran/Lymph Reports as per HPI Aller/Immun Reports as per HPI Physical exam (Primary Care) Vital Signs: Last Vital Signs Pulse 77 09/02/23 13:50 BP 120/80 09/02/23 13:50 Pulse Ox 95 09/02/23 13:50 Oxygen Delivery Method Room Air 09/02/23 13:50 BMI result Body Mass Index 27.3 Tobacco/Smoking Status: Tobacco use Status Tobacco use date assessed 09/02/23 09/02/23 13:51 Patient Tobacco Use Status Current everyday Tobacco 09/02/23 13:51 Tobacco use type Cigarette 09/02/23 13:51 e-Cigarette/Vaping Use Never Used 09/02/23 13:51 Depression Screening Interpretation: Positive Depression Screening Follow-up: Existing condition and In treatment Thrive Assessment: Date of Thrive Assessment Date Thrive assessed 06/24/23 09/02/23 13:51 Const General: cooperative, comfortable and no acute distress Orientation/consciousness: patient oriented x3 HENMT Head: Yes normocephalic and Yes atraumatic Eyes General: appearance normal, both eyes and all related structures Pupils: Equal, round and reactive pupils present EOM: EOMs intact bilaterally Neck Neck: Yes supple and No lymphadenopathy Thyroid: Thyroid normal Lymphatic: no lymphadenopathy noted Resp Effort & Inspection: normal respiratory effort and able to speak in complete sentences Auscultation: clear to auscultation bilaterally Cardio Heart sounds: S1 normal heart sound present and S2 normal heart sound present GI Palpation (GI): Soft to palpation and nontender Auscultation: normal bowel sounds General: Yes no CVA tenderness Back/Spine/Pelvis Back: no CVA tenderness Skin General skin exam: elasticity normal and turgor normal Neuro General: patient oriented x3 and gait normal Cranial nerves: Yes Equal, round and reactive pupils present Speech: No Abnormal speech present Sensory Exam: No Sensory deficit (Neuro) Coordination: tandem gait normal and Romberg test negative Extrem General: Yes normal exam except as noted and No edema Office Procedures Flu Questionnaire Does the patient have a severe egg allergy?: No Does the patient have severe life threatening allergies?: No Does the patient have a fever or illness today?: No Has the patient ever had Guillain-[place] Syndrome?: No Has the patient ever had any past reaction to a flu shot?: No Immunizations flu vacc [id number] 6mos up(PF) 60 mcg(15 mcgx4)/0.5 mL IM syringe Performing Provider: Zoila Damian MD Performing Location: [facility] Administered by: Johnny Herrera CMA on 09/02/23 14:20 Dose Route Admin Location Dispensed Lot Number Expiration Date NDC Manager Of Pmo 0.5 mL IM Left Deltoid 0.5 mL [id number] 05/29/24 [id number] AMS-Qi VIS Given Date VIS Provided VIS Publication Date 09/02/23 Single Vaccine 21 Eligibility Eligibility Date Funding Source Not [facility] Eligible 09/02/23 Private Assessment and Plan Assessment & Plan (1) Encounter for general adult medical examination with abnormal findings: Code(s): Z00.01 - Encounter for general adult medical examination with abnormal findings (2) Major depression, recurrent: Code(s): F33.9 - Major depressive disorder, recurrent, unspecified Qualifiers: Active/Remission status: in partial remission Qualified Code(s): F33.41 - Major depressive disorder, recurrent, in partial remission (3) Type 2 diabetes mellitus with unspecified complications: Code(s): E11.8 - Type 2 diabetes mellitus with unspecified complications (4) Hypertension, essential: Code(s): I10 - Essential (primary) hypertension (5) History of angioplasty: Code(s): Z98.62 - Peripheral vascular angioplasty status (6) Difficulty sleeping: Code(s): G47.9 - Sleep disorder, unspecified (7) Atherosclerotic cardiovascular disease: Code(s): I25.10 - Atherosclerotic heart disease of cahto coronary artery without angina pectoris (8) Ventral hernia: Code(s): K43.9 - Ventral hernia without obstruction or gangrene Qualifiers: Obstruction and gangrene presence: without obstruction or gangrene Qualified Code(s): K43.9 - Ventral hernia without obstruction or gangrene (9) Lipid disorder: Code(s): E78.9 - Disorder of lipoprotein metabolism, unspecified (10) Anxiety, generalized: Code(s): F41.1 - Generalized anxiety disorder Plan Patient is 57-year-old male came in today for physical exam He is due for colonoscopy 2024 Patient will have labs done before his next visit in 3 months Hypertension: Patient is on amlodipine 5 mg and metoprolol 100 mg blood pressure is stable.? Continue to a statin to 80 mg for lipid control. No side effects Diabetes: he is taking glipizide 10 mg b.i.d., pioglitazone 45 mg, patient is tolerating medications no side effects, also would recommend to control diet Major depression, patient is taking Seroquel 50 mg as a sleep aid at night and sertraline 200 mg daily. ?. . History of coronary artery disease with angioplasty 2006 currently seeing cardiology [facility] Follow-up 3 months, and physical exam 1 year Orders: Orders Comprehensive Met. Panel Today E11.8 - Type 2 diabetes mellitus with unspecified complications, F33.9 - Major depressive disorder, recurrent, unspecified, G47.9 - Sleep disorder, unspecified, I10 - Essential (primary) hypertension, I25.10 - Atherosclerotic heart disease of cahto coronary artery without angina pectoris, K43.9 - Ventral hernia without obstruction or gangrene, Z00.01 - Encounter for general adult medical examination with abnormal findings, Z98.62 - Peripheral vascular angioplasty status Hemoglobin A1c Today E11.8 - Type 2 diabetes mellitus with unspecified complications, F33.9 - Major depressive disorder, recurrent, unspecified, G47.9 - Sleep disorder, unspecified, I10 - Essential (primary) hypertension, I25.10 - Atherosclerotic heart disease of cahto coronary artery without angina pectoris, K43.9 - Ventral hernia without obstruction or gangrene, Z00.01 - Encounter for general adult medical examination with abnormal findings, Z98.62 - Peripheral vascular angioplasty status Microalbumin, Random (w Creat) Today E11.8 - Type 2 diabetes mellitus with unspecified complications, F33.9 - Major depressive disorder, recurrent, unspecified, G47.9 - Sleep disorder, unspecified, I10 - Essential (primary) hypertension, I25.10 - Atherosclerotic heart disease of cahto coronary artery without angina pectoris, K43.9 - Ventral hernia without obstruction or gangrene, Z00.01 - Encounter for general adult medical examination with abnormal findings, Z98.62 - Peripheral vascular angioplasty status Complete Blood Count Auto Diff Today E11.8 - Type 2 diabetes mellitus with unspecified complications, F33.9 - Major depressive disorder, recurrent, unspecified, G47.9 - Sleep disorder, unspecified, I10 - Essential (primary) hypertension, I25.10 - Atherosclerotic heart disease of cahto coronary artery without angina pectoris, K43.9 - Ventral hernia without obstruction or gangrene, Z00.01 - Encounter for general adult medical examination with abnormal findings, Z98.62 - Peripheral vascular angioplasty status LDL Cholesterol Direct Today E11.8 - Type 2 diabetes mellitus with unspecified complications, F33.9 - Major depressive disorder, recurrent, unspecified, G47.9 - Sleep disorder, unspecified, I10 - Essential (primary) hypertension, I25.10 - Atherosclerotic heart disease of cahto coronary artery without angina pectoris, K43.9 - Ventral hernia without obstruction or gangrene, Z00.01 - Encounter for general adult medical examination with abnormal findings, Z98.62 - Peripheral vascular angioplasty status Influenza [id number] Immunization Today Z23 - Encounter for immunization Coding Level of Care Code Est Pt Prev Care 40-64y(30853) Diagnoses Encounter for general adult medical examination with abnormal findings Z00.01 Recurrent major depressive disorder, in partial remission F33.41 Active/Remission status: in partial remission Type 2 diabetes mellitus with unspecified complications E11.8 Hypertension, essential I10 History of angioplasty Z98.62 Difficulty sleeping G47.9 Atherosclerotic cardiovascular disease I25.10 Ventral hernia without obstruction or gangrene K43.9 Obstruction and gangrene presence: without obstruction or gangrene Lipid disorder E78.9 Anxiety, generalized F41.1
== END 2023-09-02 14:15 | disposition home or self-care (01) ==
PROVIDERS: Visit Provider Internal Medicine
DX: Z00.00 Encounter for general adult medical examination without abnormal findings (principal); F33.41 Major depressive disorder, recurrent, in partial remission; E11.8 Type 2 diabetes mellitus with unspecified complications; I10 Essential (primary) hypertension; Z23 Encounter for immunization; Z98.62 Peripheral vascular angioplasty status; G47.9 Sleep disorder, unspecified; I25.10 Atherosclerotic heart disease of native coronary artery without angina pectoris; K43.9 Ventral hernia without obstruction or gangrene; E78.9 Disorder of lipoprotein metabolism, unspecified; F41.1 Generalized anxiety disorder
CPT/HCPCS: 90471; 90686; 99396

== ENCOUNTER 2023-12-09 10:01 | Outpatient (AMB) | payer OTHER, SELFPAY ==
--- NOTE | 2023-12-09 10:02 | MHC.PC.OV ---
Vital Signs 12/09/23 10:03 Height 6 ft 3 in Weight 227 lb 4 oz BMI 28.4 BP 118/82 Blood Pressure Location Lt brachial Position Sitting Pulse 86 Pulse Source Pulse Oximeter Pulse Oximetry (%) 93 Oxygen Delivery Method Room Air Intake Visit Reasons: 3M follow up Allergies lisinopril [LISINOPRIL] Allergy (Unknown, Verified 12/09/23 10:02) TONGUE SWELLING, anaphylaxis, swelling Medication List - Last Reconciled 12/09/23 by Zoila Damian MD amlodipine 5 mg PO DAILY 90 days aspirin (Adult Low Dose Aspirin) 81 mg PO DAILY atorvastatin 80 mg PO DAILY blood sugar diagnostic (FreeStyle Lite Strips) Use to check fasting blood sugar daily. blood-glucose meter (FreeStyle Lite Meter kit) Use to check fasting blood sugar daily glipizide 10 mg PO BID 90 days lancets (FreeStyle Lancets) Use to check fasting blood sugar daily. metoprolol succinate ER 100 mg PO DAILY pioglitazone 45 mg PO DAILY quetiapine (Seroquel) 50 mg PO BEDTIME 90 days sertraline 200 mg (2 x 100 mg) PO DAILY 90 days Tobacco use date assessed: 12/09/23 Dental Screening Dental Screen Date: 12/09/23 HPI 3M follow up HPI Details Patient is 58-year-old gentleman came in today for his regular follow-up appointment Patient was supposed to do labs but I do not see them. Reminded to patient again to have that done today Hypertension: Patient is on amlodipine 5 mg and metoprolol 100 mg blood pressure is stable.? Continue to a statin to 80 mg for lipid control. No side effects Diabetes: he is taking glipizide 10 mg b.i.d., pioglitazone 45 mg, patient is tolerating medications no side effects, also would recommend to control diet Major depression, patient is taking Seroquel 50 mg as a sleep aid at night and sertraline 200 mg daily. ?. . History of coronary artery disease with angioplasty 2006 currently seeing cardiology [facility] Follow-up 3 months [facility] Medical History Type 2 diabetes mellitus with unspecified complications History of kidney stones On beta marii at home PONV (postoperative nausea and vomiting) Chronic back pain Depression Hx of myocardial infarction CAD (coronary artery disease) Surgical History Hx of colonoscopy History of amputation of finger of left hand History of back surgery History of lithotripsy Hx of coronary angioplasty Hx of tonsillectomy Family History Father CAD (coronary artery disease) HTN (hypertension) Hyperlipidemia Mother No problems noted. Brother No problems noted. Daughter No problems noted. Daughter No problems noted. Social History Housing: House Alcohol intake: current Alcohol intake frequency: holidays/special occasions only Patient Tobacco Use Status: Current everyday Tobacco user Tobacco use type: Cigarette Cigarette Packs Per Day: 0.5 Cigarettes Per Day: 10.0 e-Cigarette/Vaping Use: Never Used service: No Current occupational status: retired Cognitive needs: No Hearing needs: No Vision needs: No Questionnaire Thrive Questionnaire Date Thrive assessed: 06/24/23 UGO-7 AMB Questionnaire UGO-7 Date UGO - 7 assessed: 06/24/23 Source: Developed by Drs. Arnol Reynolds, Clary Martinez, Jose Coleman and colleagues, with an educational cornelio from [employer]. Review of Systems Const Denies chills and Denies fever(s) ENT Denies epistaxis and Denies nasal discharge Card Denies chest pain Resp Denies chest congestion, Denies cough and Denies hemoptysis GI Denies diarrhea and Denies nausea Skin/Breast Denies rash Neuro Reports no additional complaints Psych Reports no additional complaints Endo Reports no additional complaints Physical exam (Primary Care) Vital Signs: Last Vital Signs Pulse 86 12/09/23 10:03 BP 118/82 12/09/23 10:03 Pulse Ox 93 12/09/23 10:03 Oxygen Delivery Method Room Air 12/09/23 10:03 BMI result Body Mass Index 28.4 Tobacco/Smoking Status: Tobacco use Status Tobacco use date assessed 12/09/23 12/09/23 10:04 Patient Tobacco Use Status Current everyday Tobacco 12/09/23 10:04 Tobacco use type Cigarette 12/09/23 10:04 e-Cigarette/Vaping Use Never Used 12/09/23 10:04 Are you ready to quit: No Tobacco cessation counseling provided: Yes Relapse Prevention: discussed the importance of a supportive environment and weight gain after smoking is common CPT code: 70453 - 4-10 Minutes Thrive Assessment: Date of Thrive Assessment Date Thrive assessed 06/24/23 12/09/23 10:04 Const General: cooperative, comfortable and no acute distress Orientation/consciousness: patient oriented x3 HENMT Head: Yes normocephalic Eyes General: appearance normal, both eyes and all related structures Neck Neck: Yes supple Resp Effort & Inspection: normal respiratory effort, no cough and no stridor Cardio Rhythm: regular rhythm Heart sounds: S1 normal heart sound present and S2 normal heart sound present Skin General skin exam: turgor normal Neuro General: patient oriented x3, tone normal and moves all extremities Extrem Right lower extremity: no edema Left lower extremity: no edema Assessment and Plan Assessment & Plan (1) Major depression, recurrent: Code(s): F33.9 - Major depressive disorder, recurrent, unspecified Qualifiers: Active/Remission status: in partial remission Qualified Code(s): F33.41 - Major depressive disorder, recurrent, in partial remission (2) Type 2 diabetes mellitus with unspecified complications: Code(s): E11.8 - Type 2 diabetes mellitus with unspecified complications (3) Hypertension, essential: Code(s): I10 - Essential (primary) hypertension (4) Nicotine dependence: Code(s): F17.200 - Nicotine dependence, unspecified, uncomplicated Qualifiers: Nicotine product type: cigarettes Substance use status: uncomplicated Qualified Code(s): F17.210 - Nicotine dependence, cigarettes, uncomplicated (5) Difficulty sleeping: Code(s): G47.9 - Sleep disorder, unspecified (6) Atherosclerotic cardiovascular disease: Code(s): I25.10 - Atherosclerotic heart disease of [place] coronary artery without angina pectoris (7) History of angioplasty: Code(s): Z98.62 - Peripheral vascular angioplasty status (8) Lipid disorder: Code(s): E78.9 - Disorder of lipoprotein metabolism, unspecified (9) Anxiety, generalized: Code(s): F41.1 - Generalized anxiety disorder Plan Patient is 58-year-old gentleman came in today for his regular follow-up appointment Patient continued to smoke half a pack per day, he was initially smoking 2 pack per day. Patient says that he has not ready to quit but he is gradually trying by himself. We talked about the importance of supportive environment and also possibility of weight gain after smoking cessation Patient was supposed to do labs but I do not see them. Reminded to patient again to have that done today Hypertension: Patient is on amlodipine 5 mg and metoprolol 100 mg blood pressure is stable.? Continue to a statin to 80 mg for lipid control. No side effects Diabetes: he is taking glipizide 10 mg b.i.d., pioglitazone 45 mg, patient is tolerating medications no side effects, also would recommend to control diet Major depression, patient is taking Seroquel 50 mg as a sleep aid at night and sertraline 200 mg daily. ?. . History of coronary artery disease with angioplasty 2006 currently seeing cardiology [facility] Follow-up 3 months, Coding Level of Care Code Est Pt Level 4 (34917) Diagnoses Recurrent major depressive disorder, in partial remission F33.41 Active/Remission status: in partial remission Type 2 diabetes mellitus with unspecified complications E11.8 Hypertension, essential I10 Cigarette nicotine dependence without complication F17.210 Nicotine product type: cigarettes Substance use status: uncomplicated Difficulty sleeping G47.9 Atherosclerotic cardiovascular disease I25.10 History of angioplasty Z98.62 Lipid disorder E78.9 Anxiety, generalized F41.1 Additional Codes Vital Signs *Quality* - CPT code: 91430 - 4-10 Minutes ([id number])
[2023-12-09 10:03] VITALS: BP 118/82; PULSE 86; O2SAT 93; BMI 28.4
== END 2023-12-09 11:49 | disposition home or self-care (01) ==
PROVIDERS: PCP Internal Medicine; Visit Provider Internal Medicine
DX: F33.41 Major depressive disorder, recurrent, in partial remission (principal); E11.8 Type 2 diabetes mellitus with unspecified complications; I10 Essential (primary) hypertension; F17.210 Nicotine dependence, cigarettes, uncomplicated; G47.9 Sleep disorder, unspecified; I25.10 Atherosclerotic heart disease of native coronary artery without angina pectoris; Z98.62 Peripheral vascular angioplasty status; E78.9 Disorder of lipoprotein metabolism, unspecified; F41.1 Generalized anxiety disorder
CPT/HCPCS: 99214; 99406

== ENCOUNTER 2024-03-09 09:33 | Outpatient (AMB) | payer OTHER, SELFPAY ==
[2024-03-09 09:36] VITALS: BP 132/78; PULSE 84; O2SAT 97; BMI 28.9
--- NOTE | 2024-03-09 09:36 | MHC.PC.OV ---
Vital Signs 03/09/24 09:36 Height 6 ft 3 in Weight 231 lb 2 oz BMI 28.9 BP 132/78 Blood Pressure Location Rt brachial Position Sitting Pulse 84 Pulse Source Pulse Oximeter Pulse Oximetry (%) 97 Oxygen Delivery Method Room Air Intake Visit Reasons: 6M follow up Allergies lisinopril [LISINOPRIL] Allergy (Unknown, Verified 03/09/24 09:38) TONGUE SWELLING, anaphylaxis, swelling Medication List - Last Reconciled 03/09/24 by Zoila Damian MD amlodipine 5 mg PO DAILY 90 days aspirin (Adult Low Dose Aspirin) 81 mg PO DAILY atorvastatin 80 mg PO DAILY blood sugar diagnostic (FreeStyle Lite Strips) Use to check fasting blood sugar daily. blood-glucose meter (FreeStyle Lite Meter kit) Use to check fasting blood sugar daily glipizide 10 mg PO BID 90 days lancets (FreeStyle Lancets) Use to check fasting blood sugar daily. metoprolol succinate ER 50 mg PO DAILY pioglitazone 45 mg PO DAILY quetiapine (Seroquel) 50 mg PO BEDTIME 90 days sertraline 200 mg (2 x 100 mg) PO DAILY 90 days ticagrelor (Brilinta) 90 mg PO BID Tobacco use date assessed: 03/09/24 Dental Screening Dental Screen Date: 03/09/24 Did you have a dental visit in the last 12 months?: Yes Did you have a dental problem in the last 6 months where you did not have access to dental care?: No Was dental information given to patient?: Patient has dentist HPI 6M follow up HPI Details Patient is 58-year-old gentleman came in today for hospital discharge follow-up date of admission February 22 date of discharge 02/25/2024 Patient have past medical history of coronary artery disease status post MD in 2017, status post angioplasty, hypertension, hyperlipidemia, severe depression, diabetes. Presented to emergency room with a chief complaint of chest pain, patient tells me that he was having chest pain for the past 2 weeks before he presented to emergency room. In emergency room EKG did not show any ischemic changes but lab work showed troponin level of 16, 46 and 67 Patient was started on heparin drip and was admitted for suspected NSTEMI. He underwent cardiac catheterization and was noted to have acute critical stenosis of ostial OM2 and total occlusion of ostial diagonal 1. Patient had PCI of OM2. Patient felt better after the procedure, he had echocardiogram done on February 24 which showed normal LV size and systolic function with ejection fraction of 50-60% Patient was discharged home on dual antiplatelet therapy He has appointment with Cardiology coming up today later. There are no more chest pains Hypertension: Patient is on amlodipine 5 mg and metoprolol 50 mg blood pressure is stable.? Continue to a statin to 80 mg for lipid control. No side effects Diabetes: he is taking glipizide 10 mg b.i.d., pioglitazone 45 mg, patient is tolerating medications no side effects, also would recommend to control diet, hemoglobin A1c is 6.8% Major depression, patient is taking Seroquel 50 mg as a sleep aid at night and sertraline 200 mg daily. ?. . Follow-up May Medical History Type 2 diabetes mellitus with unspecified complications History of kidney stones On beta marii at home PONV (postoperative nausea and vomiting) Chronic back pain Depression Hx of myocardial infarction CAD (coronary artery disease) Surgical History Hx of colonoscopy History of amputation of finger of left hand History of back surgery History of lithotripsy Hx of coronary angioplasty Hx of tonsillectomy Family History Father CAD (coronary artery disease) HTN (hypertension) Hyperlipidemia Mother No problems noted. Brother No problems noted. Daughter No problems noted. Daughter No problems noted. Social History Housing: House Alcohol intake: current Alcohol intake frequency: holidays/special occasions only Patient Tobacco Use Status: Current everyday Tobacco user Tobacco use type: Cigarette Cigarette Packs Per Day: 0.5 Cigarettes Per Day: 10.0 e-Cigarette/Vaping Use: Never Used service: No Current occupational status: retired Cognitive needs: No Hearing needs: No Vision needs: No Questionnaire Thrive Questionnaire Date Thrive assessed: 06/24/23 AUDIT C Alcohol Use Questionnaire (AUDIT-C) 1. How often do you have a drink containing alcohol?: Monthly or less 2. How many drinks containing alcohol do you have on a typical day when you are drinking?: 1 or 2 3. How often do you have six or more drinks on one occasion?: Never Total Score: 1 Score Reviewed/Action Taken: Yes UGO-7 AMB Questionnaire UGO-7 Date UGO - 7 assessed: 06/24/23 Source: Developed by Drs. Arnol Reynolds, Clary Martinez, Jose Coleman and colleagues, with an educational cornelio from [employer]. Review of Systems Const Denies chills and Denies fever(s) ENT Denies epistaxis and Denies nasal discharge Card Denies chest pain Resp Denies chest congestion, Denies cough and Denies hemoptysis GI Denies diarrhea and Denies nausea Skin/Breast Denies rash Neuro Reports no additional complaints Psych Reports no additional complaints Endo Reports no additional complaints Physical exam (Primary Care) Vital Signs: Last Vital Signs Pulse 84 03/09/24 09:36 BP 132/78 03/09/24 09:36 Pulse Ox 97 03/09/24 09:36 Oxygen Delivery Method Room Air 03/09/24 09:36 BMI result Body Mass Index 28.9 Tobacco/Smoking Status: Tobacco use Status Tobacco use date assessed 03/09/24 03/09/24 09:39 Patient Tobacco Use Status Current everyday Tobacco 03/09/24 09:39 Tobacco use type Cigarette 03/09/24 09:39 e-Cigarette/Vaping Use Never Used 03/09/24 09:39 Thrive Assessment: Date of Thrive Assessment Date Thrive assessed 06/24/23 03/09/24 09:39 Const General: cooperative, comfortable and no acute distress Orientation/consciousness: patient oriented x3 HENMT Head: Yes normocephalic Eyes General: appearance normal, both eyes and all related structures Neck Neck: Yes supple Resp Effort & Inspection: normal respiratory effort, no cough and no stridor Cardio Rhythm: regular rhythm Heart sounds: S1 normal heart sound present and S2 normal heart sound present Skin General skin exam: turgor normal Neuro General: patient oriented x3, tone normal and moves all extremities Extrem Right lower extremity: no edema Left lower extremity: no edema Results AMB Hemoglobin A1c AMB Hemoglobin A1c 6.8 % Last Edit by Saida Friend MA on 03/09/24 09:51 Results Reviewed Results Reviewed: Laboratory Last Values Hgb A1c (Clinic) 6.8 % (4.0-6.0) H 03/09/24 09:50 Assessment and Plan Assessment & Plan (1) Hospital discharge follow-up: Code(s): Z09 - Encounter for follow-up examination after completed treatment for conditions other than malignant neoplasm (2) Stented coronary artery: Code(s): Z95.5 - Presence of coronary angioplasty implant and graft (3) Major depression, recurrent: Code(s): F33.9 - Major depressive disorder, recurrent, unspecified Qualifiers: Active/Remission status: in partial remission Qualified Code(s): F33.41 - Major depressive disorder, recurrent, in partial remission (4) Type 2 diabetes mellitus with unspecified complications: Code(s): E11.8 - Type 2 diabetes mellitus with unspecified complications (5) Hypertension, essential: Code(s): I10 - Essential (primary) hypertension (6) Difficulty sleeping: Code(s): G47.9 - Sleep disorder, unspecified (7) Atherosclerotic cardiovascular disease: Code(s): I25.10 - Atherosclerotic heart disease of [place] coronary artery without angina pectoris (8) History of angioplasty: Code(s): Z98.62 - Peripheral vascular angioplasty status (9) Lipid disorder: Code(s): E78.9 - Disorder of lipoprotein metabolism, unspecified (10) Anxiety, generalized: Code(s): F41.1 - Generalized anxiety disorder Plan Patient is 58-year-old gentleman came in today for hospital discharge follow-up date of admission February 22 date of discharge 02/25/2024 Patient have past medical history of coronary artery disease status post MD in 2017, status post angioplasty, hypertension, hyperlipidemia, severe depression, diabetes. Presented to emergency room with a chief complaint of chest pain, patient tells me that he was having chest pain for the past 2 weeks before he presented to emergency room. In emergency room EKG did not show any ischemic changes but lab work showed troponin level of 16, 46 and 67 Patient was started on heparin drip and was admitted for suspected NSTEMI. He underwent cardiac catheterization and was noted to have acute critical stenosis of ostial OM2 and total occlusion of ostial diagonal 1. Patient had PCI of OM2. Patient felt better after the procedure, he had echocardiogram done on February 24 which showed normal LV size and systolic function with ejection fraction of 50-60% Patient was discharged home on dual antiplatelet therapy He has appointment with Cardiology coming up today later. There are no more chest pains Hypertension: Patient is on amlodipine 5 mg and metoprolol 50 mg blood pressure is stable.? Continue to a statin to 80 mg for lipid control. No side effects Diabetes: he is taking glipizide 10 mg b.i.d., pioglitazone 45 mg, patient is tolerating medications no side effects, also would recommend to control diet, hemoglobin A1c is 6.8% Major depression, patient is taking Seroquel 50 mg as a sleep aid at night and sertraline 200 mg daily. ?. . Follow-up May Coding Level of Care Code Est Pt Level 5 (64186) Diagnoses Hospital discharge follow-up Z09 Stented coronary artery Z95.5 Recurrent major depressive disorder, in partial remission F33.41 Active/Remission status: in partial remission Type 2 diabetes mellitus with unspecified complications E11.8 Hypertension, essential I10 Difficulty sleeping G47.9 Atherosclerotic cardiovascular disease I25.10 History of angioplasty Z98.62 Lipid disorder E78.9 Anxiety, generalized F41.1 Time Spent (min) 40 Comment 5 minute pre visit 25 with patient, 5 minute charting, 5 coordination of care
== END 2024-03-09 10:35 | disposition home or self-care (01) ==
PROVIDERS: PCP Internal Medicine; Visit Provider Internal Medicine
DX: Z09 Encounter for follow-up examination after completed treatment for conditions other than malignant neoplasm (principal); Z95.5 Presence of coronary angioplasty implant and graft; F33.41 Major depressive disorder, recurrent, in partial remission; E11.8 Type 2 diabetes mellitus with unspecified complications; I10 Essential (primary) hypertension; G47.9 Sleep disorder, unspecified; I25.10 Atherosclerotic heart disease of native coronary artery without angina pectoris; Z98.62 Peripheral vascular angioplasty status; E78.9 Disorder of lipoprotein metabolism, unspecified; F41.1 Generalized anxiety disorder
CPT/HCPCS: 83036; 99215

== ENCOUNTER 2024-03-09 13:00 | Outpatient (AMB) | payer OTHER, SELFPAY ==
--- NOTE | 2024-03-09 13:07 | A.OFFVIS_ITS ---
Intake Vital Signs 03/09/24 13:08 Height 6 ft 3 in Weight 230 lb BMI 28.7 BP 130/72 Blood Pressure Location Lt brachial Position Sitting Pulse 67 Pulse Source Monitor Intake Visit Reasons: 1 yr f/up/ fu recent NSTEMI [facility] Intake Note: 1 year follow up Pt feels good with EKG Allergies lisinopril [LISINOPRIL] Allergy (Unknown, Verified 03/09/24 09:38) TONGUE SWELLING, anaphylaxis, swelling HPI HPI Comments History of Present Illness Details 58-year-old male presents today for a fo llow-up. He reports he is feeling good. He has a history of diabetes, CAD, and hypertension. He denies fever, chills, chest pains, shortness of breath, or palpitations. He is avoiding fried foods and salt. He still smokes and has occational alcohol. He reports Brilinta is expensive. [facility] Medical History Type 2 diabetes mellitus with unspecified complications History of kidney stones On beta marii at home PONV (postoperative nausea and vomiting) Chronic back pain Depression Hx of myocardial infarction CAD (coronary artery disease) Surgical History Status post cardiac catheterization Hx of colonoscopy History of amputation of finger of left hand History of back surgery History of lithotripsy Hx of coronary angioplasty Hx of tonsillectomy Family History Father CAD (coronary artery disease) HTN (hypertension) Hyperlipidemia Mother No problems noted. Brother No problems noted. Daughter No problems noted. Daughter No problems noted. Social History Housing: House Alcohol intake: current Alcohol intake frequency: holidays/special occasions only Patient Tobacco Use Status: Current everyday Tobacco user Tobacco use type: Cigarette Cigarette Packs Per Day: 0.5 Cigarettes Per Day: 10.0 e-Cigarette/Vaping Use: Never Used service: No Current occupational status: retired Cognitive needs: No Hearing needs: No Vision needs: No Review of Systems Const Denies weakness ENT Denies dizziness Card Denies chest pain, Denies chest pain with activity, Denies syncope, Denies rapid heart rate, Denies pedal edema, Denies edema, Denies leg edema, Denies lightheadedness, Denies palpitations, Denies dyspnea, Denies dyspnea on exertion and Denies orthopnea Resp Denies cough, Denies dyspnea and Denies dyspnea on exertion GI Denies hematochezia and Denies change in stool character Musc Denies abnormal gait, Denies muscle cramps, Denies muscle weakness, Denies numbness, Denies radiating pain into limb and Denies tingling Neuro Denies abnormal gait, Denies dizziness, Denies syncope, Denies numbness, Denies tingling and Denies weakness Endo Denies palpitations Physical Exam Vital Signs: Last Vital Signs Pulse 67 03/09/24 13:08 BP 130/72 03/09/24 13:08 BMI result Body Mass Index 28.7 Const General: healthy appearing and no acute distress Orientation/consciousness: patient oriented x3 HEENT Head: Yes normal to inspection Eyes General: appearance normal, both eyes and all related structures Neck Neck: Yes normal visual inspection Chest Chest palpation & inspection: normal inspection of the chest Resp Effort & Inspection: normal respiratory effort Auscultation: clear to auscultation bilaterally Cardio Jugular venous distension: no JVD Palpation: normal PMI Rate: regular rate Rhythm: regular rhythm Heart sounds: S1 normal heart sound present, S2 normal heart sound present, no click, no gallops, no murmurs and no rubs GI Inspection: Yes normal to inspection Palpation (GI): Soft to palpation Skin General skin exam: no rashes or lesions noted Neuro General: patient oriented x3 Extrem Other: Right radial: no swelling, erythema, odor, or tenderness. General: Yes normal to inspection Psych Appearance: grossly normal Office Procedures EKG Details: EKG today. Normal Sinus Rhythm. Rate 67 bpm. QRS 70ms. QTc 405 ms. [id number], Complete Results AMB Hemoglobin A1c AMB Hemoglobin A1c 6.8 % Last Edit by Saida Friend MA on 03/09/24 09:51 Assessment & Plan Assessment & Plan (1) Status post cardiac catheterization: Comment: 02/24/[address] Alli Greenfield LMCA: Minimal luminal irregularities. LAD: Lesion in 1st Diag: Ostial.100% stenosis . Chronic total occlusion. Lesion in 2nd Diag: Proximal subsection.80% stenosis . Lesion in Prox LAD: Mid subsection.40% stenosis . LCx: Lesion in 2nd Ob Faina: Ostial.99% stenosis . Pre procedure [place] I flow was noted. The lesion was diagnosed as Moderate Risk. Culprit lesion. RCA: Lesion in Mid RCA: Proximal subsection.40% stenosis . Lesion in 1st RPL: Mid subsection.70% stenosis . Lesion in R PDA: Proximal subsection.70% stenosis . PCI to OM2 Code(s): Z98.890 - Other specified postprocedural states (2) Nicotine dependence: Code(s): F17.200 - Nicotine dependence, unspecified, uncomplicated Qualifiers: Nicotine product type: cigarettes Substance use status: uncomplicated Qualified Code(s): F17.210 - Nicotine dependence, cigarettes, uncomplicated (3) Uncontrolled diabetes mellitus: Plan Low dose aspirin indefinitely. Brilinta for 12 months minimum - will check with insurance for cheaper options. Heart healthy diet reviewed. Patient declines cardiac rehab at this time. Informed improtance of cardiac rehab and if he changes his mind to let us know. Complete smoking cessation encouraged. Diabetes needs to be under tighter control - last A1C 03/09 was 6.8. Orders: Orders Lipid Panel 03/09/24 Z98.890 - Other specified postprocedural states Basic Metabolic Panel 03/09/24 Z98.890 - Other specified postprocedural states Coding Level of Care Code Est Pt Level 4 (11186) Diagnoses Status post cardiac catheterization Z98.890 Cigarette nicotine dependence without complication F17.210 Nicotine product type: cigarettes Substance use status: uncomplicated Uncontrolled diabetes mellitus CPT Codes EKG - CPT: 41223-[id number], Complete ([id number])
[2024-03-09 13:08] VITALS: BP 130/72; PULSE 67; BMI 28.7
== END 2024-03-09 13:38 | disposition home or self-care (01) ==
PROVIDERS: PCP Internal Medicine; Referring Provider Internal Medicine; Visit Provider Nurse Practitioner
DX: Z98.890 Other specified postprocedural states (principal)
CPT/HCPCS: 93010; 99214

== ENCOUNTER → 2024-03-09 13:00 | Outpatient (BNVA) | payer OTHER, SELFPAY | PROVIDERS: Visit Provider Nurse Practitioner | DX: I10 Essential (primary) hypertension (principal); I25.10 Atherosclerotic heart disease of native coronary artery without angina pectoris; E11.9 Type 2 diabetes mellitus without complications; F17.210 Nicotine dependence, cigarettes, uncomplicated | CPT/HCPCS: 93005 ==

== ENCOUNTER 2024-05-11 08:13 | Outpatient (REF) | payer OTHER, SELFPAY ==
[2024-05-11 10:24] LABS: MANUAL DIFF FLAG NO
[2024-05-11 10:52] LABS: Estimated Average Glucose 134 mg/dL; Hemoglobin A1c % 6.3 % (<6.0)
[2024-05-11 10:54] LABS: Basophils Absolute Auto 0.1 X10*3/uL (0.0-0.2); Basophils Percent Auto 0.7 % (0-2); Eosinophils Absolute Auto 0.2 X10*3/uL (0.0-0.4); Eosinophils Percent Auto 2.1 % (0-4); Hematocrit 43.9 % (42.0-52.0); Hemoglobin 15.2 g/dl (14.0-18.0); Imm Gran Abs Auto 0.02 X10*3/uL (0.00-0.03); Imm Gran Pct Auto 0.3 % (0.0-0.4); Lymphocytes Absolute Auto 2.6 X10*3/uL (1.2-4.9); Lymphocytes Percent Auto 34.5 % (20-40); Mean Corpuscular HGB Conc 34.6 g/dl (31.0-36.0); Mean Corpuscular Hemoglobin 33.3 pg (27.0-33.0); Mean Corpuscular Volume 96.3 fL (80.0-98.0); Mean Platelet Volume 10.1 fL (9.4-12.4); Monocytes Absolute Auto 0.6 X10*3/uL (0.1-1.2); Monocytes Percent Auto 7.4 % (2-11); Neutrophils Absolute Auto 4.2 x10*3/uL (2.0-8.3); Platelet Count 151 X10*3/uL (160-400); Red Blood Count 4.56 X10*6/uL (4.60-5.80); Red Cell Distribution Width 13.8 % (11.0-16.0); White Blood Count 7.6 X10*3/uL (4.8-10.8)
[2024-05-11 11:01] LABS: Creatinine Urine 282.53 mg/dL; Microalbum/Creatinine Ratio Ur 16.6 ug/mg cr (<30)
[2024-05-11 11:03] LABS: Alanine Aminotransferase 18 U/L (0-40); Albumin Level 4.4 g/dL (3.5-5.0); Alkaline Phosphatase 83 U/L (39-117); Anion Gap 11 (12-20); Aspartate Amino Transferase 16 U/L (5-37); Bilirubin Total 0.5 mg/dL (0.0-1.0); Blood Urea Nitrogen 18 mg/dL (9-16); Calcium 9.4 mg/dL (8.4-10.2); Carbon Dioxide 26 mmol/L (22-29); Chloride 105 mmol/L (96-108); Cholesterol 164 mg/dL (<200); Estimated Glomerular Filt Rate > 60; Glucose Random 223 mg/dL (60-115); HDL Cholesterol 49 mg/dL (>40); LDL Cholesterol Calculated 89 mg/dL (<100); Potassium 4.3 mmol/L (3.3-5.1); Sodium 138 mmol/L (135-145); Triglycerides 134 mg/dL (<150)
[2024-05-13 08:18] LABS: LDL Cholesterol Direct 94 mg/dL (<100)
== END 2024-05-11 08:14 | disposition home or self-care (01) ==
LOC: HO.HMGCLDS 08:13
PROVIDERS: PCP Internal Medicine; Referring Provider Nurse Practitioner; Visit Provider Internal Medicine
DX: Z00.01 Encounter for general adult medical examination with abnormal findings (principal); F33.9 Major depressive disorder, recurrent, unspecified; E11.8 Type 2 diabetes mellitus with unspecified complications; I10 Essential (primary) hypertension; Z98.62 Peripheral vascular angioplasty status; G47.9 Sleep disorder, unspecified; I25.10 Atherosclerotic heart disease of native coronary artery without angina pectoris; K43.9 Ventral hernia without obstruction or gangrene; Z98.890 Other specified postprocedural states
CPT/HCPCS: 36415; 80053; 80061; 82043; 82570; 83036; 83721; 85025

== ENCOUNTER 2024-06-01 13:04 | Outpatient (AMB) | payer OTHER, SELFPAY ==
--- NOTE | 2024-06-01 13:05 | A.OFFVIS_ITS ---
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 blood-glucose meter (FreeStyle Lite Meter kit) Use to check fasting blood sugar daily clopidogrel (Plavix) 75 mg PO DIRECTED glipizide 10 mg PO BID 90 days lancets (FreeStyle Lancets) Use to check fasting blood sugar daily. metoprolol succinate ER 50 mg PO DAILY pioglitazone 45 mg PO DAILY quetiapine (Seroquel) 50 mg PO BEDTIME 90 days sertraline 200 mg (2 x 100 mg) PO DAILY 90 days HPI Comments Details: Patrick returns for follow-up. Previously, patient of Dr. Ruiz but switching to our care. Multiple cardiovascular risk factors including diabetes, hypertension and dyslipidemia. The last time I saw him, he was doing fine. Then it seems that he had chest pain that lead to [facility] admission. It seems that he underwent diagnostic catheterization. Noted have OM2 stenosis and chronic total occlusion of 1st diagonal. He underwent PCI of OM2. After that, he feels fine. No new complaints. No further chest pains. No other cardiac symptoms. Unfortunately, he still smokes a few cigarettes a day. [facility] Medical History (Updated 06/01/24 @ 13:22 by Ankur Javier MD) Abdominal aortic aneurysm Type 2 diabetes mellitus with unspecified complications History of kidney stones On beta marii at home PONV (postoperative nausea and vomiting) Chronic back pain Depression Hx of myocardial infarction CAD (coronary artery disease) Surgical History Status post cardiac catheterization Hx of colonoscopy History of amputation of finger of left hand History of back surgery History of lithotripsy Hx of coronary angioplasty Hx of tonsillectomy Family History Father CAD (coronary artery disease) HTN (hypertension) Hyperlipidemia Mother No problems noted. Brother No problems noted. Daughter No problems noted. Daughter No problems noted. Social History Housing: House Alcohol intake: current Alcohol intake frequency: holidays/special occasions only Patient Tobacco Use Status: Current everyday Tobacco user Tobacco use type: Cigarette Cigarette Packs Per Day: 0.5 Cigarettes Per Day: 10.0 e-Cigarette/Vaping Use: Never Used service: No Current occupational status: retired Cognitive needs: No Hearing needs: No Vision needs: No Review of Systems Const Denies chills, Denies fatigue, Denies fever(s), Denies frequent falls, Denies weakness, Denies weight gain and Denies weight loss ENT Denies dizziness Card Denies chest pain, Denies leg edema, Denies lightheadedness, Denies palpitations, Denies dyspnea and Denies dyspnea on exertion Resp Denies cough, Denies dyspnea and Denies dyspnea on exertion GI Denies hematochezia Musc Denies abnormal gait, Denies muscle weakness, Denies numbness, Denies radiating pain into limb and Denies tingling Neuro Denies abnormal gait, Denies dizziness, Denies frequent falls, Denies numbness, Denies tingling and Denies weakness Endo Denies fatigue and Denies palpitations Physical Exam Vital Signs: Last Vital Signs Pulse 79 06/01/24 13:06 BP 130/70 06/01/24 13:06 BMI result Body Mass Index 29.4 Const General: comfortable and no acute distress Orientation/consciousness: patient oriented x3 HEENT Other: Unremarkable Head: Yes normal to inspection Neck Neck: Yes normal visual inspection Chest Chest palpation & inspection: normal inspection of the chest Resp Auscultation: clear to auscultation bilaterally Cardio Palpation: normal PMI Heart sounds: S1 normal heart sound present, S2 normal heart sound present, no gallops, no murmurs and no rubs GI Palpation (GI): Soft to palpation Back/Spine/Pelvis Other: unremarkable Skin General skin exam: no rashes or lesions noted Neuro General: patient oriented x3 Extrem General: Yes normal to inspection Psych Mental Status: mental status grossly normal Assessment & Plan Assessment & Plan (1) Atherosclerotic cardiovascular disease: Code(s): I25.10 - Atherosclerotic heart disease of [place] coronary artery without angina pectoris Category: Medical Plan: Recent cardiac catheterization reviewed from 01/2024. Underwent PCI to OM2. Chronic total occlusion of ostial 1st diagonal. Severe ostial to proximal diagonal 2 stenosis. Severe diffuse stenosis of PL1/RPDA but small caliber vessels. Overall, apart from the PCI to OM2, medical therapy was recommended. Echocardiogram from [facility] with LVEF of 50-60%. Mid to distal inferolateral wall hypokinetic. Continue long-term aspirin. May keep on long-term Plavix as there is extensive CAD. Continue statins. Add Zetia as LDL is slightly borderline and also there is extensive CAD. (2) Type 2 diabetes mellitus with unspecified complications: Code(s): E11.8 - Type 2 diabetes mellitus with unspecified complications Category: Medical Plan: On glipizide, pioglitazone. Last hemoglobin A1c is 6.3%. (3) Hypertension, essential: Code(s): I10 - Essential (primary) hypertension Category: Medical Plan: Remains on beta-blockers and amlodipine. Normal blood pressure today. (4) Ascending aorta dilatation: Code(s): I77.810 - Thoracic aortic ectasia Category: Medical Plan: Per CT scan [facility], ascending aortic size 4.1 cm. Can be followed on echocardiograms. (5) Abdominal aortic aneurysm: Code(s): I71.40 - Abdominal aortic aneurysm, without rupture, unspecified Category: Medical Qualifiers: Abdominal aorta location: infrarenal aorta Presence of rupture: without rupture Qualified Code(s): I71.43 - Infrarenal abdominal aortic aneurysm, without rupture Plan: Per [facility] CT 2023, infrarenal ascending aortic aneurysm measuring 3.4 cm. Recommendation was to repeat ultrasound or CT in 3 years. (6) Nicotine dependence: Code(s): F17.200 - Nicotine dependence, unspecified, uncomplicated Category: Medical Qualifiers: Nicotine product type: cigarettes Substance use status: uncomplicated Qualified Code(s): F17.210 - Nicotine dependence, cigarettes, uncomplicated Plan: Still smokes a few cigarettes a day. Advised complete cessation. Medications: New ezetimibe (Zetia) 10 mg PO DAILY 90 tabs 3RF Coding Level of Care Code Est Pt Level 4 (72307) Diagnoses Atherosclerotic cardiovascular disease I25.10 Type 2 diabetes mellitus with unspecified complications E11.8 Hypertension, essential I10 Ascending aorta dilatation I77.810 Infrarenal abdominal aortic aneurysm (AAA) without rupture I71.43 Abdominal aorta location: infrarenal aorta Presence of rupture: without rupture Cigarette nicotine dependence without complication F17.210 Nicotine product type: cigarettes Substance use status: uncomplicated
[2024-06-01 13:06] VITALS: BP 130/70; PULSE 79; BMI 29.4
== END 2024-06-01 13:17 | disposition home or self-care (01) ==
PROVIDERS: PCP Internal Medicine; Visit Provider Internal Medicine
DX: I25.10 Atherosclerotic heart disease of native coronary artery without angina pectoris (principal); E11.8 Type 2 diabetes mellitus with unspecified complications; I10 Essential (primary) hypertension; I77.810 Thoracic aortic ectasia; I71.43 Infrarenal abdominal aortic aneurysm, without rupture; F17.210 Nicotine dependence, cigarettes, uncomplicated
CPT/HCPCS: 99214

== ENCOUNTER → 2024-06-01 13:04 | Outpatient (BNVA) | payer OTHER, SELFPAY | PROVIDERS: PCP Internal Medicine; Visit Provider Internal Medicine ==

== ENCOUNTER 2024-06-08 09:44 | Outpatient (AMB) | payer OTHER, SELFPAY ==
[2024-06-08 09:47] VITALS: BP 150/90; PULSE 81; O2SAT 96; BMI 29.0
--- NOTE | 2024-06-08 09:47 | MHC.PC.OV ---
Vital Signs 06/08/24 09:47 Height 6 ft 3 in Weight 232 lb 2 oz BMI 29.0 BP 150/90 H Blood Pressure Location Lt brachial Position Sitting Pulse 81 Pulse Source Pulse Oximeter Pulse Oximetry (%) 96 Oxygen Delivery Method Room Air Intake Visit Reasons: 9M follow up Allergies lisinopril [LISINOPRIL] Allergy (Unknown, Verified 06/08/24 09:49) TONGUE SWELLING, anaphylaxis, swelling Medication List - Last Reconciled 06/08/24 by Zoila Damian MD amlodipine 5 mg PO DAILY 90 days aspirin (Adult Low Dose Aspirin) 81 mg PO DAILY atorvastatin 80 mg PO DAILY blood sugar diagnostic (FreeStyle Lite Strips) Use to check fasting blood sugar daily. blood-glucose meter (FreeStyle Lite Meter kit) Use to check fasting blood sugar daily clopidogrel (Plavix) 75 mg PO DIRECTED ezetimibe (Zetia) 10 mg PO DAILY glipizide 10 mg PO BID 90 days lancets (FreeStyle Lancets) Use to check fasting blood sugar daily. metoprolol succinate ER 50 mg PO DAILY pioglitazone 45 mg PO DAILY quetiapine (Seroquel) 50 mg PO BEDTIME 90 days sertraline 200 mg (2 x 100 mg) PO DAILY 90 days Tobacco use date assessed: 06/08/24 Dental Screening Dental Screen Date: 06/08/24 Did you have a dental visit in the last 12 months?: Yes Did you have a dental problem in the last 6 months where you did not have access to dental care?: No Was dental information given to patient?: Patient has dentist HPI 9M follow up HPI Details Patient is 58-year-old gentleman came in today for his regular follow-up appointment Patient is complaining of feeling heartburn, and sore throat off and on He is currently taking no PPI, I am starting him on H2 marii b.i.d., ppi will be interacting with this clopidogrel Patient was instructed to take it on empty stomach if possible Dietary restrictions were also discussed with the patient, he is to avoid eating acidic foods tomato sauce And stopped eating 4 hours before bedtime. History of stented coronary artery, follow-up with Cardiology Labs done recently reviewed with the patient Hypertension: Patient is on amlodipine 5 mg and metoprolol 50 mg blood pressure is stable.? Continue to a statin to 80 mg for lipid control. No side effects Diabetes: he is taking glipizide 10 mg b.i.d., pioglitazone 45 mg, patient is tolerating medications no side effects, also would recommend to control diet, hemoglobin A1c is well controlled Major depression, patient is taking Seroquel 50 mg as a sleep aid at night and sertraline 200 mg daily. ?. . Follow-up May Medical History Abdominal aortic aneurysm Type 2 diabetes mellitus with unspecified complications History of kidney stones On beta marii at home PONV (postoperative nausea and vomiting) Chronic back pain Depression Hx of myocardial infarction CAD (coronary artery disease) Surgical History Status post cardiac catheterization Hx of colonoscopy History of amputation of finger of left hand History of back surgery History of lithotripsy Hx of coronary angioplasty Hx of tonsillectomy Family History Father CAD (coronary artery disease) HTN (hypertension) Hyperlipidemia Mother No problems noted. Brother No problems noted. Daughter No problems noted. Daughter No problems noted. Social History Housing: House Alcohol intake: current Alcohol intake frequency: holidays/special occasions only Patient Tobacco Use Status: Current everyday Tobacco user Tobacco use type: Cigarette Cigarette Packs Per Day: 0.5 Cigarettes Per Day: 10.0 e-Cigarette/Vaping Use: Never Used service: No Current occupational status: retired Cognitive needs: No Hearing needs: No Vision needs: No Questionnaire PHQ-9 Over the last 2 weeks, how often have you been bothered by any of the following problems? 1. Little interest or pleasure in doing things: not at all 2. Feeling down, depressed, or hopeless: more than half the days 3. Trouble falling or staying asleep, or sleeping too much: nearly every day 4. Feeling tired or having little energy: nearly every day 5. Poor appetite or overeating: more than half the days 6. Feeling bad about yourself - or that you are a failure or have let yourself or your family down: more than half the days 7. Trouble concentrating on things, such as reading the newspaper or watching television: not at all 8. Moving or speaking so slowly that other people could have noticed. Or the opposite - being so fidgety or restless that you have been moving around a lot more than usual: nearly every day 9. Thoughts that you would be better off or of hurting yourself in some way: not at all Total score: 15 Depression Screening Interpretation: Positive Depression Screening Follow-up: Existing condition and In treatment Depression Screening Done: Yes 51081 - PHQ-9 Billing: Yes Source: Developed by Drs. Arnol Reynolds, Jose Garland and colleagues, with an educational cornelio from [employer]. Thrive Questionnaire Date Thrive assessed: 06/24/23 AUDIT C Alcohol Use Questionnaire (AUDIT-C) 1. How often do you have a drink containing alcohol?: Monthly or less 2. How many drinks containing alcohol do you have on a typical day when you are drinking?: 1 or 2 3. How often do you have six or more drinks on one occasion?: Never Total Score: 1 Score Reviewed/Action Taken: Yes UGO-7 AMB Questionnaire UGO-7 Date UGO - 7 assessed: 06/24/23 Source: Developed by Drs. Arnol Reynolds, Clary Martinez, Jose Coleman and colleagues, with an educational cornelio from [employer]. Review of Systems Const Denies chills and Denies fever(s) ENT Denies epistaxis and Denies nasal discharge Card Denies chest pain Resp Denies chest congestion, Denies cough and Denies hemoptysis GI Denies diarrhea and Denies nausea Skin/Breast Denies rash Neuro Reports no additional complaints Psych Reports no additional complaints Endo Reports no additional complaints Physical exam (Primary Care) Vital Signs: Last Vital Signs Pulse 81 06/08/24 09:47 BP 150/90 H 06/08/24 09:47 Pulse Ox 96 06/08/24 09:47 Oxygen Delivery Method Room Air 06/08/24 09:47 BMI result Body Mass Index 29.0 Tobacco/Smoking Status: Tobacco use Status Tobacco use date assessed 06/08/24 06/08/24 09:53 Patient Tobacco Use Status Current everyday Tobacco 06/08/24 09:53 Tobacco use type Cigarette 06/08/24 09:53 e-Cigarette/Vaping Use Never Used 06/08/24 09:53 Depression Screening Interpretation: Positive Depression Screening Follow-up: Existing condition and In treatment Thrive Assessment: Date of Thrive Assessment Date Thrive assessed 06/24/23 06/08/24 09:53 Const General: cooperative, comfortable and no acute distress Orientation/consciousness: patient oriented x3 HENMT Other: mild erythema throat, uvula midline, no exudate Head: Yes normocephalic Eyes General: appearance normal, both eyes and all related structures Neck Neck: Yes supple Resp Effort & Inspection: normal respiratory effort, no cough and no stridor Cardio Rhythm: regular rhythm Heart sounds: S1 normal heart sound present and S2 normal heart sound present Skin General skin exam: turgor normal Neuro General: patient oriented x3, tone normal and moves all extremities Extrem Right lower extremity: no edema Left lower extremity: no edema Assessment and Plan Assessment & Plan (1) Type 2 diabetes mellitus with unspecified complications: Code(s): E11.8 - Type 2 diabetes mellitus with unspecified complications (2) Major depression, recurrent: Code(s): F33.9 - Major depressive disorder, recurrent, unspecified Qualifiers: Active/Remission status: in partial remission Qualified Code(s): F33.41 - Major depressive disorder, recurrent, in partial remission (3) Hypertension, essential: Code(s): I10 - Essential (primary) hypertension (4) Difficulty sleeping: Code(s): G47.9 - Sleep disorder, unspecified (5) Atherosclerotic cardiovascular disease: Code(s): I25.10 - Atherosclerotic heart disease of [place] coronary artery without angina pectoris (6) History of angioplasty: Code(s): Z98.62 - Peripheral vascular angioplasty status (7) Stented coronary artery: Code(s): Z95.5 - Presence of coronary angioplasty implant and graft (8) Lipid disorder: Code(s): E78.9 - Disorder of lipoprotein metabolism, unspecified (9) Anxiety, generalized: Code(s): F41.1 - Generalized anxiety disorder Plan Patient is 58-year-old gentleman came in today for his regular follow-up appointment Patient is complaining of feeling heartburn, and sore throat off and on He is currently taking no PPI, I am starting him on H2 marii b.i.d., ppi will be interacting with this clopidogrel Patient was instructed to take it on empty stomach if possible Dietary restrictions were also discussed with the patient, he is to avoid eating acidic foods tomato sauce And stopped eating 4 hours before bedtime. History of stented coronary artery, follow-up with Cardiology Labs done recently reviewed with the patient Hypertension: Patient is on amlodipine 5 mg and metoprolol 50 mg blood pressure is is elevated today, it was within reasonable range last visit earlier this month? Continue to a statin to 80 mg for lipid control. No side effects Diabetes: he is taking glipizide 10 mg b.i.d., pioglitazone 45 mg, patient is tolerating medications no side effects, also would recommend to control diet, hemoglobin A1c is well controlled Major depression, patient is taking Seroquel 50 mg as a sleep aid at night and sertraline 200 mg daily. ?. . Follow-up May Medications: New famotidine 20 mg (2.5 mL) PO BID 150 mL 0RF Heartburn Coding Level of Care Code Est Pt Level 4 (92332) Diagnoses Type 2 diabetes mellitus with unspecified complications E11.8 Recurrent major depressive disorder, in partial remission F33.41 Active/Remission status: in partial remission Hypertension, essential I10 Difficulty sleeping G47.9 Atherosclerotic cardiovascular disease I25.10 History of angioplasty Z98.62 Stented coronary artery Z95.5 Lipid disorder E78.9 Anxiety, generalized F41.1
== END 2024-06-08 10:11 | disposition home or self-care (01) ==
PROVIDERS: PCP Internal Medicine; Visit Provider Internal Medicine
DX: E11.8 Type 2 diabetes mellitus with unspecified complications (principal); F33.41 Major depressive disorder, recurrent, in partial remission; I10 Essential (primary) hypertension; G47.9 Sleep disorder, unspecified; I25.10 Atherosclerotic heart disease of native coronary artery without angina pectoris; Z98.62 Peripheral vascular angioplasty status; Z95.5 Presence of coronary angioplasty implant and graft; E78.9 Disorder of lipoprotein metabolism, unspecified; F41.1 Generalized anxiety disorder
CPT/HCPCS: 99214

== ENCOUNTER 2024-08-31 09:49 | Outpatient (AMB) | payer OTHER, SELFPAY ==
[2024-08-31 09:53] VITALS: BP 138/84; PULSE 83; O2SAT 95; BMI 29.8
--- NOTE | 2024-08-31 09:53 | MHC.PC.OV ---
Vital Signs 08/31/24 09:53 Height 6 ft 3 in Weight 238 lb 8 oz BMI 29.8 BP 138/84 Blood Pressure Location Lt brachial Position Sitting Pulse 83 Pulse Source Pulse Oximeter Pulse Oximetry (%) 95 Oxygen Delivery Method Room Air Intake Visit Reasons: 3M follow up Allergies lisinopril [LISINOPRIL] Allergy (Unknown, Verified 08/31/24 09:53) TONGUE SWELLING, anaphylaxis, swelling Medication List - Last Reconciled 08/31/24 by Zoila Damian MD amlodipine 5 mg PO DAILY 90 days aspirin (Adult Low Dose Aspirin) 81 mg PO DAILY atorvastatin 80 mg PO DAILY blood sugar diagnostic (FreeStyle Lite Strips) Use to check fasting blood sugar daily. blood-glucose meter (FreeStyle Lite Meter kit) Use to check fasting blood sugar daily clopidogrel (Plavix) 75 mg PO DIRECTED ezetimibe (Zetia) 10 mg PO DAILY famotidine 20 mg (2.5 mL) PO BID glipizide 10 mg PO BID 90 days lancets (FreeStyle Lancets) Use to check fasting blood sugar daily. metoprolol succinate ER 50 mg PO DAILY pioglitazone 45 mg PO DAILY quetiapine (Seroquel) 50 mg PO BEDTIME 90 days sertraline 200 mg (2 x 100 mg) PO DAILY 90 days Tobacco use date assessed: 08/31/24 Dental Screening Dental Screen Date: 06/08/24 HPI 3M follow up HPI Details Patient is 58-year-old gentleman came in today for his regular follow-up appointment Patient is stable taking all his medications offer no new complaints today He was given flu vaccine and Prevnar 20 vaccine today History of stented coronary artery, follow-up with Cardiology taking blood thinners for a year Abdominal aortic aneurysm being monitored by Cardiology last visit was May of this year Hypertension: Patient is on amlodipine 5 mg and metoprolol 50 mg blood pressure is stable.? Continue to a statin to 80 mg for lipid control. No side effects Diabetes: he is taking glipizide 10 mg b.i.d., pioglitazone 45 mg, patient is tolerating medications no side effects, also would recommend to control diet, hemoglobin A1c is well controlled Major depression, patient is taking Seroquel 50 mg as a sleep aid at night and sertraline 200 mg daily. ?. Lab order placed to be done before next visit in 3 months [facility] Medical History Abdominal aortic aneurysm Type 2 diabetes mellitus with unspecified complications History of kidney stones On beta marii at home PONV (postoperative nausea and vomiting) Chronic back pain Depression Hx of myocardial infarction CAD (coronary artery disease) Surgical History Status post cardiac catheterization Hx of colonoscopy History of amputation of finger of left hand History of back surgery History of lithotripsy Hx of coronary angioplasty Hx of tonsillectomy Family History Father CAD (coronary artery disease) HTN (hypertension) Hyperlipidemia Mother No problems noted. Brother No problems noted. Daughter No problems noted. Daughter No problems noted. Social History Housing: House Alcohol intake: current Alcohol intake frequency: holidays/special occasions only Patient Tobacco Use Status: Current everyday Tobacco user Tobacco use type: Cigarette Cigarette Packs Per Day: 0.5 Cigarettes Per Day: 10.0 e-Cigarette/Vaping Use: Never Used service: No Current occupational status: retired Cognitive needs: No Hearing needs: No Vision needs: No Questionnaire Thrive Questionnaire Date Thrive assessed: 06/24/23 UGO-7 AMB Questionnaire UGO-7 Date UGO - 7 assessed: 06/24/23 Source: Developed by Drs. Arnol Reynolds, Clary Martinez, Jose Coleman and colleagues, with an educational cornelio from [employer]. Review of Systems Const Denies chills and Denies fever(s) ENT Denies epistaxis and Denies nasal discharge Card Denies chest pain Resp Denies chest congestion, Denies cough and Denies hemoptysis GI Denies diarrhea and Denies nausea Skin/Breast Denies rash Neuro Reports no additional complaints Psych Reports no additional complaints Endo Reports no additional complaints Physical exam (Primary Care) Vital Signs: Last Vital Signs Pulse 83 08/31/24 09:53 BP 138/84 08/31/24 09:53 Pulse Ox 95 08/31/24 09:53 Oxygen Delivery Method Room Air 08/31/24 09:53 BMI result Body Mass Index 29.8 Tobacco/Smoking Status: Tobacco use Status Tobacco use date assessed 08/31/24 08/31/24 09:55 Patient Tobacco Use Status Current everyday Tobacco 08/31/24 09:55 Tobacco use type Cigarette 08/31/24 09:55 e-Cigarette/Vaping Use Never Used 08/31/24 09:55 Thrive Assessment: Date of Thrive Assessment Date Thrive assessed 06/24/23 08/31/24 09:55 Const General: cooperative, comfortable and no acute distress Orientation/consciousness: patient oriented x3 HENMT Head: Yes normocephalic Eyes General: appearance normal, both eyes and all related structures Neck Neck: Yes supple Resp Effort & Inspection: normal respiratory effort, no cough and no stridor Cardio Rhythm: regular rhythm Heart sounds: S1 normal heart sound present and S2 normal heart sound present Skin General skin exam: turgor normal Neuro General: patient oriented x3, tone normal and moves all extremities Extrem Right lower extremity: no edema Left lower extremity: no edema Office Procedures Flu Questionnaire Does the patient have a severe egg allergy?: No Does the patient have severe life threatening allergies?: No Does the patient have a fever or illness today?: No Has the patient ever had Guillain-[place] Syndrome?: No Has the patient ever had any past reaction to a flu shot?: No Results AMB Hemoglobin A1c AMB Hemoglobin A1c 6.0 % Last Edit by JUDY Jeff on 08/31/24 10:26 Immunizations Fluarix Triv [id number] (PF) 45 mcg (15 mcg x 3)/0.5 mL IM syringe Performing Provider: Zoila Damian MD Performing Location: [facility] [place] [facility] Administered by: JUDY Jeff on 08/31/24 10:24 Dose Route Admin Location Dispensed Lot Number Expiration Date NDC Pipe Connector 0.5 mL IM Right Deltoid 0.5 mL [id number] 05/29/25 [id number] [employer] VIS Given Date VIS Provided VIS Publication Date 08/31/24 Single Vaccine 21 Eligibility Eligibility Date Funding Source Not VFC Eligible 08/31/24 Private pneumoc 20-phuong conj-dip cr(PF) 0.5 mL IM syringe Performing Provider: Zoila Damian MD Performing Location: [facility] [place] [facility] Administered by: JUDY Jeff on 08/31/24 10:24 Dose Route Admin Location Dispensed Lot Number Expiration Date NDC Pipe Connector 0.5 mL IM Right Deltoid 0.5 mL [id number] 11/28/25 [id number] [employer] VIS Given Date VIS Provided VIS Publication Date 08/31/24 Single Vaccine 22 Eligibility Eligibility Date Funding Source Not [facility] Eligible 08/31/24 Private Results Reviewed Results Reviewed: Laboratory Last Values Hgb A1c (Clinic) 6.0 % (4.0-6.0) 08/31/24 10:23 Coding Level of Care Code Est Pt Level 4 (62144) Diagnoses Hypertension, essential I10 Anxiety, generalized F41.1 Recurrent major depressive disorder, in partial remission F33.41 Active/Remission status: in partial remission Difficulty sleeping G47.9 Lipid disorder E78.9 Infrarenal abdominal aortic aneurysm (AAA) without rupture I71.43 Abdominal aorta location: infrarenal aorta Presence of rupture: without rupture Controlled type 2 diabetes mellitus with other specified complication, without long-term current use of insulin E11.69 Diabetes mellitus long term care pharmacist insulin use: without halfway use Diabetes mellitus complication status: with other specified complication Coronary artery disease involving gambell coronary artery of gambell heart without angina pectoris I25.10 Coronary Disease-Associated Artery/Lesion type: gambell artery [place] vs. transplanted heart: gambell heart Associated angina: without angina History of angioplasty Z98.62 Assessment & Plan Assessment & Plan (1) Hypertension, essential: Code(s): I10 - Essential (primary) hypertension Category: Medical (2) Anxiety, generalized: Code(s): F41.1 - Generalized anxiety disorder Category: Medical (3) Major depression, recurrent: Code(s): F33.9 - Major depressive disorder, recurrent, unspecified Category: Medical Qualifiers: Active/Remission status: in partial remission Qualified Code(s): F33.41 - Major depressive disorder, recurrent, in partial remission (4) Difficulty sleeping: Code(s): G47.9 - Sleep disorder, unspecified Category: Medical (5) Lipid disorder: Code(s): E78.9 - Disorder of lipoprotein metabolism, unspecified Category: Medical (6) Abdominal aortic aneurysm: Code(s): I71.40 - Abdominal aortic aneurysm, without rupture, unspecified Category: Medical Qualifiers: Abdominal aorta location: infrarenal aorta Presence of rupture: without rupture Qualified Code(s): I71.43 - Infrarenal abdominal aortic aneurysm, without rupture (7) Diabetes type 2, controlled: Code(s): E11.9 - Type 2 diabetes mellitus without complications Category: Medical Qualifiers: Diabetes mellitus long term care pharmacist insulin use: without halfway use Diabetes mellitus complication status: with other specified complication Qualified Code(s): E11.69 - Type 2 diabetes mellitus with other specified complication (8) Coronary artery disease: Code(s): I25.10 - Atherosclerotic heart disease of gambell coronary artery without angina pectoris Category: Medical Qualifiers: Coronary Disease-Associated Artery/Lesion type: [place] artery [place] vs. transplanted heart: gambell heart Associated angina: without angina Qualified Code(s): I25.10 - Atherosclerotic heart disease of [place] coronary artery without angina pectoris (9) History of angioplasty: Code(s): Z98.62 - Peripheral vascular angioplasty status Category: Surgical Plan Patient is 58-year-old gentleman came in today for his regular follow-up appointment Patient is stable taking all his medications offer no new complaints today He was given flu vaccine and Prevnar 20 vaccine today History of stented coronary artery, follow-up with Cardiology taking blood thinners for a year Abdominal aortic aneurysm being monitored by Cardiology last visit was May of this year Hypertension: Patient is on amlodipine 5 mg and metoprolol 50 mg blood pressure is stable.? Continue to a statin to 80 mg for lipid control. No side effects Diabetes: he is taking glipizide 10 mg b.i.d., pioglitazone 45 mg, patient is tolerating medications no side effects, also would recommend to control diet, hemoglobin A1c is well controlled Major depression, patient is taking Seroquel 50 mg as a sleep aid at night and sertraline 200 mg daily. ?. Lab order placed to be done before next visit in 3 months Orders: Orders Comprehensive [place]. Panel Fast 2 Months E11.9 - Type 2 diabetes mellitus without complications, E78.9 - Disorder of lipoprotein metabolism, unspecified, F33.41 - Major depressive disorder, recurrent, in partial remission, F41.1 - Generalized anxiety disorder, G47.9 - Sleep disorder, unspecified, I10 - Essential (primary) hypertension, I25.10 - Atherosclerotic heart disease of gambell coronary artery without angina pectoris, I71.43 - Infrarenal abdominal aortic aneurysm, without rupture, Z98.62 - Peripheral vascular angioplasty status Lipid Panel 2 Months E11.9 - Type 2 diabetes mellitus without complications, E78.9 - Disorder of lipoprotein metabolism, unspecified, F33.41 - Major depressive disorder, recurrent, in partial remission, F41.1 - Generalized anxiety disorder, G47.9 - Sleep disorder, unspecified, I10 - Essential (primary) hypertension, I25.10 - Atherosclerotic heart disease of gamb[place] coronary artery without angina pectoris, I71.43 - Infrarenal abdominal aortic aneurysm, without rupture, Z98.62 - Peripheral vascular angioplasty status Influenza [id number] Immunization Today Z23 - Encounter for immunization Pneumococcal 20 Immunization Today Z23 - Encounter for immunization Hemoglobin A1c 2 Months E11.9 - Type 2 diabetes mellitus without complications, E78.9 - Disorder of lipoprotein metabolism, unspecified, F33.41 - Major depressive disorder, recurrent, in partial remission, F41.1 - Generalized anxiety disorder, G47.9 - Sleep disorder, unspecified, I10 - Essential (primary) hypertension, I25.10 - Atherosclerotic heart disease of [place] coronary artery without angina pectoris, I71.43 - Infrarenal abdominal aortic aneurysm, without rupture, Z98.62 - Peripheral vascular angioplasty status Microalbumin, Random (w Creat) 2 Months E11.9 - Type 2 diabetes mellitus without complications, E78.9 - Disorder of lipoprotein metabolism, unspecified, F33.41 - Major depressive disorder, recurrent, in partial remission, F41.1 - Generalized anxiety disorder, G47.9 - Sleep disorder, unspecified, I10 - Essential (primary) hypertension, I25.10 - Atherosclerotic heart disease of gamb[place] coronary artery without angina pectoris, I71.43 - Infrarenal abdominal aortic aneurysm, without rupture, Z98.62 - Peripheral vascular angioplasty status Complete Blood Count Auto Diff 2 Months E11.9 - Type 2 diabetes mellitus without complications, E78.9 - Disorder of lipoprotein metabolism, unspecified, F33.41 - Major depressive disorder, recurrent, in partial remission, F41.1 - Generalized anxiety disorder, G47.9 - Sleep disorder, unspecified, I10 - Essential (primary) hypertension, I25.10 - Atherosclerotic heart disease of gamb[place] coronary artery without angina pectoris, I71.43 - Infrarenal abdominal aortic aneurysm, without rupture, Z98.62 - Peripheral vascular angioplasty status AMB Hemoglobin A1c Today Z13.9 - Encounter for screening, unspecified
== END 2024-08-31 10:24 | disposition home or self-care (01) ==
PROVIDERS: PCP Internal Medicine; Visit Provider Internal Medicine
DX: I10 Essential (primary) hypertension (principal); F33.41 Major depressive disorder, recurrent, in partial remission; I71.43 Infrarenal abdominal aortic aneurysm, without rupture; E11.69 Type 2 diabetes mellitus with other specified complication; Z23 Encounter for immunization; F41.1 Generalized anxiety disorder; G47.9 Sleep disorder, unspecified; E78.9 Disorder of lipoprotein metabolism, unspecified; I25.10 Atherosclerotic heart disease of native coronary artery without angina pectoris; Z98.62 Peripheral vascular angioplasty status

== ENCOUNTER → 2024-08-31 09:49 | Outpatient (BNVA) | payer OTHER, SELFPAY | PROVIDERS: PCP Internal Medicine; Visit Provider Internal Medicine | DX: I10 Essential (primary) hypertension (principal); F41.1 Generalized anxiety disorder; F33.41 Major depressive disorder, recurrent, in partial remission; G47.9 Sleep disorder, unspecified; E78.9 Disorder of lipoprotein metabolism, unspecified; I71.43 Infrarenal abdominal aortic aneurysm, without rupture; E11.69 Type 2 diabetes mellitus with other specified complication; I25.10 Atherosclerotic heart disease of native coronary artery without angina pectoris; Z79.899 Other long term (current) drug therapy; Z98.62 Peripheral vascular angioplasty status; Z23 Encounter for immunization | CPT/HCPCS: 83036; 90471; 90656; 90677 ==

== ENCOUNTER 2024-12-01 07:38 | Outpatient (REF) | payer OTHER, SELFPAY ==
--- OUTSIDE RECORDS SUMMARY | 2024-12-01 07:40 | XMS_ITS | Patient Health Record ---
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 Role Phone Rickie JACOB, [facility] Primary [facility] Provider Arnol Randall [phone] ALLERGIES Allergen (clinical drug ingredient) Drug/Non Drug Allergy documented on EMR Reaction Allergy Type Onset Date Status lisinopril Lisinopril Unknown Drug Allergy Activ e REASON FOR REFERRAL No Information MEDICATIONS Medication SIG (Take, Route, Frequency, Duration) Notes Start Date End Date Status Metoprolol Succinate ER 100 MG 1 tablet Orally Once a day A ctive glipiZIDE 5 MG 1 tablet Orally Once a day Active Lipitor 80 MG 1 tablet Orally Once a day Active metFORMIN HCl 1000 MG 1 tablet with meal s Orally Twice a day Active amLODIPine Besylate 5 MG 1 tablet Orally Once a day Active Losartan Potassium A ctive Potassium Citrate ER 10 MEQ (1080 MG) 1 tablet with meals Orally Three times a day Active Sertraline HCl Activ e IMMUNIZATIONS Vaccine Route Administration Date Status Comme nts Influenza Unknown 08/30/2020 Administered SOCIAL HISTORY Tobacco Use: Social History Observation Description Date Details (start date - stop date) Current Smoker NA - NA Sex Assigned At : Social History Observation Description Sex Assigned At Unknown Tobacco Use/Smoking Question Answer Notes Patient is a current smoker How often do you smoke cigarettes? every day How many cigarettes a day do you smoke? 6-10 How soon after you wake up do you smoke your fir st cigarette? within 5 minutes Are you interested in quitting? Not ready to dwayne t Alcohol Screen Question Answer Notes Did you have a drink contain ing alcohol in the past year? Yes How often did you have a dri nk containing alcohol in the past year? Monthly or less (1 point) How many drinks did you have on a typical day when you were drinking in the past year? 1 or 2 drinks (0 point) How often did you have 6 or more drinks on one occasion in the past year? Never (0 point) Points 1 Interpretation Negative PROBLEMS Problem Type ICD Code Onset Dates Problem Status W/U Status Risk SNOMED Code Notes Problem Encounter for screening for malignant neoplasm of colon (Z12.11) Active confirmed Screening for malignant neoplasm of colon (854405710) Problem History of adenomatous polyp of colon (Z86.010) Active confirmed History of adenomatous polyp of colon (438699451) Problem Diarrhea (R19.7) Active confirmed Diarr hea (84872089) Problem Preprocedural examination (Z01.818) Active confirmed Preprocedural examination (980768559091144 ) PLAN OF TREATMENT Pending Test Test Name Order Date CELIAC PANEL #10 09/26/2020 Future Test Test Name Order Date COLONOSCOPY 05/08/2015 COLONOSCOPY 09/26/2020 Insurance Providers Payer Name Payer Address Payer Phone Subscriber Number Group Number Insured Name Patient Relationship to Insured Coverage Start Date Coverage End Date [employer] [address] [place] [address] [id number] ASHLEY FAM Self - patient is the insured MEDICAL (GENERAL) HISTORY Medical History History ICD Code [place] 2007--angioplasty HTN Denies CVA,Lung disease,renal disease Hyperlipidemia Kidney stones--cystoscopies and/or ESWL NIDDM 2016 Back Surgery Screening colonoscopy in 07/01 015 with removal of 2 small tubular adenomas removed Depression Surgical History Surgery Date(Month/Year) Back Surgery 2017 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
[2024-12-01 09:51] LABS: MANUAL DIFF FLAG NO
[2024-12-01 10:10] LABS: Basophils Absolute Auto 0.1 X10*3/uL (0.0-0.2); Basophils Percent Auto 0.6 % (0-2); Eosinophils Absolute Auto 0.3 X10*3/uL (0.0-0.4); Eosinophils Percent Auto 3.6 % (0-4); Hematocrit 44.5 % (42.0-52.0); Hemoglobin 14.9 g/dl (14.0-18.0); Imm Gran Abs Auto 0.03 X10*3/uL (0.00-0.03); Imm Gran Pct Auto 0.3 % (0.0-0.4); Lymphocytes Absolute Auto 2.9 X10*3/uL (1.2-4.9); Lymphocytes Percent Auto 32.8 % (20-40); Mean Corpuscular HGB Conc 33.5 g/dl (31.0-36.0); Mean Corpuscular Hemoglobin 33.1 pg (27.0-33.0); Mean Corpuscular Volume 98.9 fL (80.0-98.0); Mean Platelet Volume 9.9 fL (9.4-12.4); Monocytes Absolute Auto 0.7 X10*3/uL (0.1-1.2); Monocytes Percent Auto 7.6 % (2-11); Neutrophils Absolute Auto 4.9 x10*3/uL (2.0-8.3); Neutrophils Percent Auto 55.1 % (45-73); Platelet Count 163 X10*3/uL (160-400); Red Cell Distribution Width 14.5 % (11.0-16.0); White Blood Count 8.9 X10*3/uL (4.8-10.8)
[2024-12-01 10:11] LABS: Estimated Average Glucose 131 mg/dL; Hemoglobin A1C 169.2753 umol/L; Hemoglobin A1c % 6.2 % (<6.0); Total Hemoglobin (HGBA1C) 3832.7193 umol/L
[2024-12-01 10:16] LABS: Alanine Aminotransferase 35 U/L (0-40); Albumin Level 4.1 g/dL (3.5-5.0); Alkaline Phosphatase 85 U/L (39-117); Anion Gap 13 (12-20); Aspartate Amino Transferase 35 U/L (5-37); Bilirubin Total 0.4 mg/dL (0.0-1.0); Blood Urea Nitrogen 13 mg/dL (9-16); Calcium 8.7 mg/dL (8.4-10.2); Carbon Dioxide 25 mmol/L (22-29); Chloride 107 mmol/L (96-108); Cholesterol 130 mg/dL (<200); Estimated Glomerular Filt Rate > 60; Glucose Fasting 171 mg/dL (60-99); HDL Cholesterol 50 mg/dL (>40); LDL Cholesterol Calculated 56 mg/dL (<100); Potassium 4.9 mmol/L (3.3-5.1); Sodium 140 mmol/L (135-145); Total Protein 6.9 g/dL (6.5-8.0); Triglycerides 122 mg/dL (<150)
[2024-12-01 10:37] LABS: Creatinine Urine 75.23 mg/dL; Microalbum/Creatinine Ratio Ur 26.5 ug/mg cr (<30)
== END 2024-12-01 07:39 | disposition home or self-care (01) ==
LOC: HO.HMGCLDS 07:38
PROVIDERS: PCP Internal Medicine; Visit Provider Internal Medicine
DX: I10 Essential (primary) hypertension (principal); F41.1 Generalized anxiety disorder; F33.41 Major depressive disorder, recurrent, in partial remission; E78.9 Disorder of lipoprotein metabolism, unspecified; E11.9 Type 2 diabetes mellitus without complications; I25.10 Atherosclerotic heart disease of native coronary artery without angina pectoris; Z98.62 Peripheral vascular angioplasty status; G47.9 Sleep disorder, unspecified; I71.43 Infrarenal abdominal aortic aneurysm, without rupture
CPT/HCPCS: 36415; 80053; 80061; 82043; 82570; 83036; 85025

== ENCOUNTER 2024-12-07 11:55 | Outpatient (AMB) | payer OTHER, SELFPAY ==
[2024-12-07 11:57] VITALS: BP 124/80; PULSE 89; O2SAT 96; BMI 29.4
--- NOTE | 2024-12-07 11:57 | A.OFFPC_ITS ---
Vital Signs 12/07/24 11:57 Height 6 ft 3 in Weight 235 lb 6 oz BMI 29.4 BP 124/80 Blood Pressure Location Rt brachial Position Sitting Pulse 89 Pulse Source Pulse Oximeter Pulse Oximetry (%) 96 Oxygen Delivery Method Room Air Intake Visit Reasons: 3 months f/up Allergies lisinopril [LISINOPRIL] Allergy (Unknown, Verified 12/07/24 11:57) TONGUE SWELLING, anaphylaxis, swelling Medication List - Last Reconciled 12/07/24 by Zoila Damian MD amlodipine 5 mg PO DAILY 90 days aspirin (Adult Low Dose Aspirin) 81 mg PO DAILY atorvastatin 80 mg PO DAILY blood sugar diagnostic (FreeStyle Lite Strips) Use to check fasting blood sugar daily. blood-glucose meter (FreeStyle Lite Meter kit) Use to check fasting blood sugar daily clopidogrel (Plavix) 75 mg PO DIRECTED ezetimibe (Zetia) 10 mg PO DAILY famotidine 20 mg (2.5 mL) PO BID glipizide 10 mg PO BID 90 days lancets (FreeStyle Lancets) Use to check fasting blood sugar daily. metoprolol succinate ER 50 mg PO DAILY pioglitazone 45 mg PO DAILY quetiapine (Seroquel) 50 mg PO BEDTIME 90 days sertraline 200 mg (2 x 100 mg) PO DAILY 90 days Tobacco use date assessed: 12/07/24 Dental Screening Dental Screen Date: 12/07/24 Did you have a dental visit in the last 12 months?: Yes Did you have a dental problem in the last 6 months where you did not have access to dental care?: No Was dental information given to patient?: Patient has dentist HPI 3 months f/up HPI Details History of Present Illness -patient is 59-year-old gentleman came i n today for his regular follow-up appointment Patient has a history of hypertension, lipid disorder, diabetes, depression, difficulty sleeping, anxiety, he is on blood thinners through Cardiology, history of GERD Labs done earlier this month reviewed with the patient He is taking all his medications no side effects Problem List - Musculoskeletal pain - Thoracic back p ain - Depression - Type 2 Diabetes Mellitus - Essential Hypertension - Hyperlipidemia - Gastroesophageal Reflux Disease (GERD) - Sleep disturbance - cardiac issues Medications - Amlodipine 5 mg for Essential Hyperten hayley - Atorvastatin 80 mg for Hyperlipidemia - Famotidine for Gastroesophageal Reflux Disease - Glipizide 10 mg BID for Type 2 Diabete s Mellitus - Metoprolol 50 mg for cardiac condition s - Pioglitazone 45 mg for Type 2 Diabetes Mellitus - Quetiapine for Depression and to joselyn t sleeping - Sertraline for Depression and Anxiety Diagnostic results - Labs show no anemia - No blood detected in urine - Kidney functions normal - Fasting blood glucose level at 171 mg/ dL - Hemoglobin A1c at 5.7% - Liver enzymes normal - Cholesterol levels within normal range [place] [facility] - Dr. Spenser Javier, upcoming appointme nt on January 22 or Review of Systems - Musculoskeletal: Reports left-sided mi d-back pain - Renal: Denies symptoms indicative of k idney involvement General: No fever no chills neurological: No headaches no dizziness ear nose throat: No sore throat no hearing difficulty no ear pain cardiovascular: No syncope, no chest pain, no palpitations gastrointestinal: No nausea vomiting or diarrhea endocrine: No polyuria polydipsia no heat intolerance genitourinary: No dysuria skin: No new complaints Physical Exam general: No acute distress HEENT: No acute findings neck: Supple respiratory system: Able to talk in full sentences, no audible wheeze no stridor cardiovascular: S1-S2 gastrointestinal: No pain extremities: No new findings SENIOR UNDERWRITING ASSISTANT: Alert awake oriented x3 motor sensory intact skin: Normal turgor Patient Instructions - Engage in regular back muscle exercise s at home to maintain strength - Consider using massage or mild electri horacio therapy to alleviate muscular discomfort, he has started having left-sided mid back pain after having respiratory illness which caused coughing few weeks ago - Plan to monitor the condition; return for further evaluation if it does not improve or worsens - Continue current medications; contact pharmacy if refills are needed - Schedule a follow-up appointment in out three months [facility] Medical History Abdominal aortic aneurysm Type 2 diabetes mellitus with unspecified complications History of kidney stones On beta marii at home PONV (postoperative nausea and vomiting) Chronic back pain Depression Hx of myocardial infarction CAD (coronary artery disease) Surgical History Status post cardiac catheterization Hx of colonoscopy History of amputation of finger of left hand History of back surgery History of lithotripsy Hx of coronary angioplasty Hx of tonsillectomy Family History Father CAD (coronary artery disease) HTN (hypertension) Hyperlipidemia Mother No problems noted. Brother No problems noted. Daughter No problems noted. Daughter No problems noted. Social History Housing: House Alcohol intake: current Alcohol intake frequency: holidays/special occasions only Patient Tobacco Use Status: Current everyday Tobacco user Tobacco use type: Cigarette Cigarette Packs Per Day: 0.5 Cigarettes Per Day: 10.0 e-Cigarette/Vaping Use: Never Used service: No Current occupational status: retired Cognitive needs: No Hearing needs: No Vision needs: No Questionnaire PHQ-9 Over the last 2 weeks, how often have you been bothered by any of the following problems? 1. Little interest or pleasure in doing things: not at all 2. Feeling down, depressed, or hopeless: not at all 3. Trouble falling or staying asleep, or sleeping too much: nearly every day 4. Feeling tired or having little energy: more than half the days 5. Poor appetite or overeating: more than half the days 6. Feeling bad about yourself - or that you are a failure or have let yourself or your family down: not at all 7. Trouble concentrating on things, such as reading the newspaper or watching television: not at all 8. Moving or speaking so slowly that other people could have noticed. Or the opposite - being so fidgety or restless that you have been moving around a lot more than usual: not at all 9. Thoughts that you would be better off or of hurting yourself in some wa y: not at all Total score: 7 Depression Screening Interpretation: Negative Depression Screening Done: Yes 12901 - PHQ-9 Billing: Yes Source: Developed by Drs. Arnol Reynolds, Clary Martinez, Jose Coleman and colleagues, with an educational cornelio from [employer]. Thrive Questionnaire Date Thrive assessed: 12/07/24 I am a: Patient What is your living situation today?: I have a steady place to live Within the past 12 months, did the food you bought not last and you didn't have the money to get more?: I choose not to answer this question Within the past 12 months, did you worry whether your food would run out before you got money to buy more?: I choose not to answer this question Do you have trouble paying for medicines?: Yes Do you have trouble getting transportation to medical appointments?: Yes Do you have trouble paying your heating and electricity bill?: No Do you have trouble taking care of your child, family member or friend?: No Do you have trouble with day-to-day activities such as bathing, preparing meals, shopping, managing finances, etc.?: No Are you currently unemployed and looking for a job?: No Are you interested in more education?: No Please select the resources that you would like help with: None Currently or been in a relationship where the following occur: I choose not to answer THRIVE Score: 1 AUDIT C Alcohol Use Questionnaire (AUDIT-C) 1. How often do you have a drink containing alcohol?: 2-3 times a week 2. How many drinks containing alcohol do you have on a typical day when you are drinking?: 1 or 2 3. How often do you have six or more drinks on one occasion?: Never Total Score: 3 Score Reviewed/Action Taken: Yes UGO-7 AMB Questionnaire UGO-7 Date UGO - 7 assessed: 12/07/24 Feeling nervous, anxious, or on edge: 3 = Nearly every day Not being able to stop or control worryin = Nearly every day Worrying too much about different things: 3 = Nearly every day Trouble relaxin = Nearly every day Being so restless that it is hard to sit still: 3 = Nearly every day Becoming easily annoyed or irritable: 2 = More than half the days Feeling afraid as if something awful might happen: 2 = More than half the days Total UGO-7 score (0-4 normal; 5-9 mild; 10-14 moderate; 15-21 severe): 19 Source: Developed by Drs. Arnol Reynolds, Clary Martinez, Jose Coleman and colleagues, with an educational cornelio from [employer]. UGO-7 Assessment Billing UGO-7 Assessment Tool: UGO-7 Assessment 42902 Physical exam (Primary Care) Vital Signs: Last Vital Signs Pulse 89 12/07/24 11:57 BP 124/80 12/07/24 11:57 Pulse Ox 96 12/07/24 11:57 Oxygen Delivery Method Room Air 12/07/24 11:57 BMI result Body Mass Index 29.4 Tobacco/Smoking Status: Tobacco use Status Tobacco use date assessed 12/07/24 12/07/24 11:59 Patient Tobacco Use Status Current everyday Tobacco 12/07/24 11:59 Tobacco use type Cigarette 12/07/24 11:59 e-Cigarette/Vaping Use Never Used 12/07/24 11:59 PHQ-9: PHQ-9 Score PHQ-9: Total score 7 12/07/24 12:02 Depression Screening Interpretation: Negative Thrive Assessment: Date of Thrive Assessment Date Thrive assessed 12/07/24 12/07/24 12:02 Currently or been in a relationship where the following occur: I choose not to answer Coding Level of Care Code Est Pt Level 4 (96121) Diagnoses Hypertension, essential I10 Lipid disorder E78.9 Controlled type 2 diabetes mellitus with other specified complication, without long-term current use of insulin E11.69 Diabetes mellitus prison insulin use: without prison use Diabetes mellitus complication status: with other specified complication Anxiety, generalized F41.1 Recurrent major depressive disorder, in partial remission F33.41 Active/Remission status: in partial remission Coronary artery disease involving [place] coronary artery of [place] heart without angina pectoris I25.10 Coronary Disease-Associated Artery/Lesion type: [place] artery [place] vs. transplanted heart: [place] heart Associated angina: without angina Infrarenal abdominal aortic aneurysm (AAA) without rupture I71.43 Abdominal aorta location: infrarenal aorta Presence of rupture: without rupture Additional Codes UGO-7 Assessment Billing - UGO-7 Assessment Tool: UGO-7 Assessment 82267 ([id number]) PHQ-9 - 42350 - PHQ-9 Billing: Yes ([id number]) Assessment & Plan Assessment & Plan (1) Hypertension, essential: Code(s): I10 - Essential (primary) hypertension Category: Medical (2) Lipid disorder: Code(s): E78.9 - Disorder of lipoprotein metabolism, unspecified Category: Medical (3) Diabetes type 2, controlled: Code(s): E11.9 - Type 2 diabetes mellitus without complications Category: Medical Qualifiers: Diabetes mellitus terminal make up operator insulin use: without prison use Diabetes mellitus complication status: with other specified complication Qualified Code(s): E11.69 - Type 2 diabetes mellitus with other specified complication (4) Anxiety, generalized: Code(s): F41.1 - Generalized anxiety disorder Category: Medical (5) Major depression, recurrent: Code(s): F33.9 - Major depressive disorder, recurrent, unspecified Category: Medical Qualifiers: Active/Remission status: in partial remission Qualified Code(s): F33.41 - Major depressive disorder, recurrent, in partial remission (6) Coronary artery disease: Code(s): I25.10 - Atherosclerotic heart disease of [place] coronary artery without angina pectoris Category: Medical Qualifiers: Coronary Disease-Associated Artery/Lesion type: [place] artery [place] vs. transplanted heart: [place] heart Associated angina: without angina Qualified Code(s): I25.10 - Atherosclerotic heart disease of [place] coronary artery without angina pectoris (7) Abdominal aortic aneurysm: Code(s): I71.40 - Abdominal aortic aneurysm, without rupture, unspecified Category: Medical Qualifiers: Abdominal aorta location: infrarenal aorta Presence of rupture: without rupture Qualified Code(s): I71.43 - Infrarenal abdominal aortic aneurysm, without rupture Plan History of Present Illness -patient is 59-year-old gentleman came in today for his regular follow-up appointment Patient has a history of hypertension, lipid disorder, diabetes, depression, difficulty sleeping, anxiety, he is on blood thinners through Cardiology, history of GERD Labs done earlier this month reviewed with the patient He is taking all his medications no side effects Problem List - Musculoskeletal pain - Thoracic back pain - Depression - Type 2 Diabetes Mellitus - Essential Hypertension - Hyperlipidemia - Gastroesophageal Reflux Disease (GERD) - Sleep disturbance - cardiac issues Medications - Amlodipine 5 mg for Essential Hypertension - Atorvastatin 80 mg for Hyperlipidemia - Famotidine for Gastroesophageal Reflux Disease - Glipizide 10 mg BID for Type 2 Diabetes Mellitus - Metoprolol 50 mg for cardiac conditions - Pioglitazone 45 mg for Type 2 Diabetes Mellitus - Quetiapine for Depression and to assist sleeping - Sertraline for Depression and Anxiety Diagnostic results - Labs show no anemia - No blood detected in urine - Kidney functions normal - Fasting blood glucose level at 171 mg/dL - Hemoglobin A1c at 5.7% - Liver enzymes normal - Cholesterol levels within normal range [place] [facility] - Dr. Spenser Javier, upcoming appointment on January 22 or Review of Systems - Musculoskeletal: Reports left-sided mid-back pain - Renal: Denies symptoms indicative of kidney involvement General: No fever no chills neurological: No headaches no dizziness ear nose throat: No sore throat no hearing difficulty no ear pain cardiovascular: No syncope, no chest pain, no palpitations gastrointestinal: No nausea vomiting or diarrhea endocrine: No polyuria polydipsia no heat intolerance genitourinary: No dysuria skin: No new complaints Physical Exam general: No acute distress HEENT: No acute findings neck: Supple respiratory system: Able to talk in full sentences, no audible wheeze no stridor cardiovascular: S1-S2 gastrointestinal: No pain extremities: No new findings SENIOR UNDERWRITING ASSISTANT: Alert awake oriented x3 motor sensory intact skin: Normal turgor Patient Instructions - Engage in regular back muscle exercises at home to maintain strength - Consider using massage or mild electrical therapy to alleviate muscular discomfort, he has started having left-sided mid back pain after having respiratory illness which caused coughing few weeks ago - Plan to monitor the condition; return for further evaluation if it does not improve or worsens - Continue current medications; contact pharmacy if refills are needed - Schedule a follow-up appointment in about three months
== END 2024-12-07 13:23 | disposition home or self-care (01) ==
PROVIDERS: PCP Internal Medicine; Visit Provider Internal Medicine
DX: I10 Essential (primary) hypertension (principal); E11.69 Type 2 diabetes mellitus with other specified complication; F33.41 Major depressive disorder, recurrent, in partial remission; I71.43 Infrarenal abdominal aortic aneurysm, without rupture; E78.9 Disorder of lipoprotein metabolism, unspecified; F41.1 Generalized anxiety disorder; I25.10 Atherosclerotic heart disease of native coronary artery without angina pectoris

== ENCOUNTER → 2024-12-07 11:55 | Outpatient (BNVA) | payer OTHER, SELFPAY | PROVIDERS: PCP Internal Medicine; Visit Provider Internal Medicine | DX: I10 Essential (primary) hypertension (principal); E78.9 Disorder of lipoprotein metabolism, unspecified; E11.69 Type 2 diabetes mellitus with other specified complication; F41.1 Generalized anxiety disorder; F33.41 Major depressive disorder, recurrent, in partial remission; I25.10 Atherosclerotic heart disease of native coronary artery without angina pectoris; I71.43 Infrarenal abdominal aortic aneurysm, without rupture; Z79.899 Other long term (current) drug therapy | CPT/HCPCS: 96127 ==

== ENCOUNTER 2025-01-25 14:09 | Outpatient (AMB) | payer OTHER, SELFPAY ==
--- NOTE | 2025-01-25 14:16 | A.OFFVIS_ITS ---
Vital Signs 01/25/25 14:17 Height 6 ft 3 in Weight 236 lb BMI 29.5 BP 132/80 Blood Pressure Location Lt brachial Position Sitting Pulse 69 Pulse Source Monitor Intake Visit Reasons: 6 mth fu Allergies lisinopril [LISINOPRIL] Allergy (Unknown, Verified 12/07/24 11:57) TONGUE SWELLING, anaphylaxis, swelling Medication List - Last Reconciled 01/25/25 by Ankur Javier MD amlodipine 5 mg PO DAILY 90 days aspirin (Adult Low Dose Aspirin) 81 mg PO DAILY atorvastatin 80 mg PO DAILY blood sugar diagnostic (FreeStyle Lite Strips) Use to check fasting blood sugar daily. blood-glucose meter (FreeStyle Lite Meter kit) Use to check fasting blood sugar daily clopidogrel (Plavix) 75 mg PO DIRECTED ezetimibe (Zetia) 10 mg PO DAILY famotidine 20 mg (2.5 mL) PO BID glipizide 10 mg PO BID 90 days lancets (FreeStyle Lancets) Use to check fasting blood sugar daily. metoprolol succinate ER 50 mg PO DAILY pioglitazone 45 mg PO DAILY quetiapine (Seroquel) 50 mg PO BEDTIME 90 days sertraline 200 mg (2 x 100 mg) PO DAILY 90 days HPI Comments Details: Patrick returns for follow-up. Previously, patient of Dr. Ruiz. Multiple cardiovascular risk factors including diabetes, hypertension and dyslipidemia. In 2023, he had chest pain that lead to [facility] admission. He underwent diagnostic catheterization. Noted have OM2 stenosis and chronic total occlusion of 1st diagonal. He underwent PCI of OM2. Since last seen, no new complaints. He states he feels good. No cardiac symptoms whatsoever. Unfortunately, he still smokes a few cigarettes a day. [facility] Medical History Abdominal aortic aneurysm Type 2 diabetes mellitus with unspecified complications History of kidney stones On beta marii at home PONV (postoperative nausea and vomiting) Chronic back pain Depression Hx of myocardial infarction CAD (coronary artery disease) Surgical History Status post cardiac catheterization Hx of colonoscopy History of amputation of finger of left hand History of back surgery History of lithotripsy Hx of coronary angioplasty Hx of tonsillectomy Family History Father CAD (coronary artery disease) HTN (hypertension) Hyperlipidemia Mother No problems noted. Brother No problems noted. Daughter No problems noted. Daughter No problems noted. Social History Housing: House Alcohol intake: current Alcohol intake frequency: holidays/special occasions only Patient Tobacco Use Status: Current everyday Tobacco user Tobacco use type: Cigarette Cigarette Packs Per Day: 0.5 Cigarettes Per Day: 10.0 e-Cigarette/Vaping Use: Never Used service: No Current occupational status: retired Cognitive needs: No Hearing needs: No Vision needs: No Review of Systems Const Denies weakness ENT Denies dizziness Card Denies chest pain, Denies chest pain with activity, Denies syncope, Denies rapid heart rate, Denies pedal edema, Denies edema, Denies leg edema, Denies lightheadedness, Denies palpitations, Denies dyspnea, Denies dyspnea on exertion and Denies orthopnea Resp Denies cough, Denies dyspnea and Denies dyspnea on exertion GI Denies hematochezia and Denies change in stool character Musc Denies abnormal gait, Denies muscle cramps, Denies muscle weakness, Denies numbness, Denies radiating pain into limb and Denies tingling Neuro Denies abnormal gait, Denies dizziness, Denies syncope, Denies numbness, Denies tingling and Denies weakness Endo Denies palpitations Physical Exam Vital Signs: Last Vital Signs Pulse 69 01/25/25 14:17 BP 132/80 01/25/25 14:17 BMI result Body Mass Index 29.5 Const General: comfortable and no acute distress Orientation/consciousness: patient oriented x3 HEENT Other: Unremarkable Head: Yes normal to inspection Neck Neck: Yes normal visual inspection Chest Chest palpation & inspection: normal inspection of the chest Resp Auscultation: clear to auscultation bilaterally Cardio Palpation: normal PMI Heart sounds: S1 normal heart sound present, S2 normal heart sound present, no gallops, no murmurs and no rubs GI Palpation (GI): Soft to palpation Back/Spine/Pelvis Other: unremarkable Skin General skin exam: no rashes or lesions noted Neuro General: patient oriented x3 Extrem General: Yes normal to inspection Psych Mental Status: mental status grossly normal Office Procedures EKG Details: EKG with underlying sinus rhythm at 69/Min; nonspecific ST-T changes in the lateral leads; [place] [id number], Complete Assessment & Plan Assessment & Plan (1) Atherosclerotic cardiovascular disease: Code(s): I25.10 - Atherosclerotic heart disease of [place] coronary artery without angina pectoris Category: Medical Plan: Cardiac catheterization reviewed from 01/2024. Underwent PCI to OM2. Chronic total occlusion of ostial 1st diagonal. Severe ostial to proximal diagonal 2 s tenosis. Severe diffuse stenosis of PL1/RPDA but small caliber vessels. Overall, apart from the PCI to OM2, medical therapy was recommended. Echocardiogram from [facility] with LVEF of 50-60%. Mid to distal inferolateral wall hypokinetic. Continue long-term aspirin. May keep on long-term Plavix as there is extensive CAD. He is tolerating that well. Continue statins and Zetia. Most recent LDL is 56 mg/dL. Triglycerides 122 mg/dL. (2) Type 2 diabetes mellitus with unspecified complications: Code(s): E11.8 - Type 2 diabetes mellitus with unspecified complications Category: Medical Plan: On glipizide, pioglitazone. Last hemoglobin A1c is 6.2%. (3) Hypertension, essential: Code(s): I10 - Essential (primary) hypertension Category: Medical Plan: Remains on beta-blockers and amlodipine. Stable. (4) Ascending aorta dilatation: Code(s): I77.810 - Thoracic aortic ectasia Category: Medical Plan: Per CT scan [facility], ascending aortic size 4.1 cm. Can be followed on echocardiograms. (5) Abdominal aortic aneurysm: Code(s): I71.40 - Abdominal aortic aneurysm, without rupture, unspecified Category: Medical Qualifiers: Abdominal aorta location: infrarenal aorta Presence of rupture: without rupture Qualified Code(s): I71.43 - Infrarenal abdominal aortic aneurysm, without rupture Plan: Per [facility] CT 2023, infrarenal ascending aortic aneurysm measuring 3.4 cm. Recommendation was to repeat ultrasound or CT in 3 years. (6) Nicotine dependence: Code(s): F17.200 - Nicotine dependence, unspecified, uncomplicated Category: Medical Qualifiers: Nicotine product type: cigarettes Substance use status: uncomplicated Qualified Code(s): F17.210 - Nicotine dependence, cigarettes, uncomplicated Plan: Still smokes a few cigarettes a day. Advised complete cessation. Orders: Orders CA echo transthoracic complete 1 Year I25.10 - Atherosclerotic heart disease of [place] coronary artery without angina pectoris, I77.810 - Thoracic aortic ectasia Coding Level of Care Code Est Pt Level 4 (75932) Complex EM visit Add On G2211 Diagnoses Atherosclerotic cardiovascular disease I25.10 Type 2 diabetes mellitus with unspecified complications E11.8 Hypertension, essential I10 Ascending aorta dilatation I77.810 Infrarenal abdominal aortic aneurysm (AAA) without rupture I71.43 Abdominal aorta location: infrarenal aorta Presence of rupture: without rupture Cigarette nicotine dependence without complication F17.210 Nicotine product type: cigarettes Substance use status: uncomplicated CPT Codes EKG - CPT: 36179-[id number], Complete ([id number])
[2025-01-25 14:17] VITALS: BP 132/80; PULSE 69; BMI 29.5
--- OUTSIDE RECORDS SUMMARY | 2025-01-25 17:28 | XMS_ITS | Encounter Summary ---
Author Organization [facility], Address [address] [place] [address] Phone Care Team Providers Care Restaurant Mgr Name Role Phone Zoila Damian MD Primary Care Provider [phone] Reason for Visit * Reason Comments Med Refill Encounter Details Date Type Department Care Team (Late st Contact Info) Description 08/21/2021 Refill [facility] [address] [place] [address] Yuki Hazel MD Stone in kidney; Hypertension; Type 2 diabetes mellitus, not otherwise specified (HCC) Social History Tobacco Use Types Packs/Day Years Used Date Smoking Tobacco: Every Day Cigarettes 0.5 40 Alcohol Use Standard Drinks/Week Comments Not Currently 0 (1 standard drink = 0.6 oz pur e alcohol) Sex and Gender Information Value Date Recorded Sex Assigned at Not on file Legal Sex Male 9:38 AM EST Gender Identity Not on file Sexual Orientation Not on file documented as of this encounter Plan of Treatment Not on file documented as of this encounter Visit Diagnoses Diagnosis Stone in kidney Hypertension Type 2 diabetes mellitus, not otherwise specified (HCC) documented in this encounter Care Teams Restaurant Mgr Relationship Specialty Start Date End Date Zoila Damian MD 1963 [facility] [place] [id number] PCP - General Internal Medicine 11/15/19 documented as of this encounter
--- OUTSIDE RECORDS SUMMARY | 2025-01-25 17:28 | XMS_ITS | Encounter Summary ---
Author Organization [facility], Address [address] [place] [address] Phone Care Team Providers Care Gas Meter Installer Helper Name Role Phone Zoila Damian MD Primary Care Provider [phone] Reason for Visit * Reason Comments Med Refill Encounter Details Date Type Department Care Team (Late st Contact Info) Description 02/27/2021 [facility]ill [facility] [address] [place] [address] Yuki Hazel MD Stone in kidney; Microalbuminuria; Hypertension; Type 2 diabetes mellitus, not otherwise [...] encounter Visit Diagnoses Diagnosis Stone in kidney Microalbuminuria Hypertension Type 2 diabetes mellitus, not otherwise specified (HCC) documented in this encounter Care Teams Gas Meter Installer Helper Relationship Specialty Start Date End Date Zoila Damian MD [address] [facility] [place] [address] PCP - General Internal Medicine 11/15/19 documented as of this encounter
--- OUTSIDE RECORDS SUMMARY | 2025-01-25 17:28 | XMS_ITS | Encounter Summary ---
Author Organization [facility], Address [address] [place] [address] Phone Care Team Providers Care Pulp Mill Operator Name Role Phone Zoila Damian MD Primary Care Provider [phone] Reason for Visit * Reason Comments Med Refill Encounter Details Date Type Department Care Team (Late st Contact Info) Description 02/23/2021 Refill [facility] [address] [place] [address] Yuki Hazel MD Stone in [...] (HCC) documented in this encounter Care Teams Pulp Mill Operator Relationship Specialty Start Date End Date Zoila Damian MD 1963 [facility] [place] [address] PCP - General Internal Medicine 11/15/19 documented as of this encounter
--- OUTSIDE RECORDS SUMMARY | 2025-01-25 17:28 | XMS_ITS | Clinical Summary ---
Author Organization [facility] [place], Address [address] [place] [address] [place] [address] Phone Care Team Providers Care Environmental Consultant Name Role Phone Zoila Damian MD Primary Care Provider [phone] Allergies Active Allergy Reactions Criticality Noted Date Comments Brett Inhibitors High 11/17/2019 Lisinopril Swelling High 02/12/2016 Medications traZODone (DESYREL) 100 MG tablet Take 200 mg by mouth every night Active atorvastatin (LIPITOR) 80 MG tablet Take 80 mg by mouth 1 (one) time each day Active glipiZIDE (GLUCOTROL XL) 5 MG 24 hr tablet Take 5 mg by mouth 1 (one) time each day Active metoprolol succinate XL (TOPROL-XL) 100 MG 24 hr tablet Take 100 mg by mouth 1 (one) time each day Active amLODIPine (NORVASC) 5 MG tablet Take 5 mg by mouth 1 (one) time each day Active sertraline (ZOLOFT) 100 MG tablet Take 100 mg by mouth 1 (one) time each day Active QUEtiapine (SEROquel) 25 MG tablet Take 1-2 tablets by mouth every night Active metFORMIN (GLUCOPHAGE) 500 MG tablet Take 500 mg by mouth twice a day Active losartan (Cozaar) 25 MG tabletIndicatio ns:Stone in kidney,Hyperten hayley,Type 2 diabetes mellitus, not otherwise specified (HCC),Chronic kidney disease, stage 3 (moderate) Take 1 tablet (25 mg total) by mouth 1 (one) time each day 30 tablet 11 04/24/2020 Active Active Problems Problem Noted Date Diagnosed Date Chronic kidney disease, stage 3 (moderate) 12/20 Hyperlipidemia Hypertension Microalbuminuria Stone in kidney Type 2 diabetes mellitus Family History Medical History Relation Comments Coronary artery disease Father Hyperlipidemia Father Hypertension Father Nephrolithiasis Father Relation Status Comments Father Social History Tobacco Use Types Packs/Day Years Used Date Smoking Tobacco: Every Day Cigarettes 0.5 40 Alcohol Use Standard Drinks/Week Comments Not Currently 0 (1 standard drink = 0.6 oz pur e alcohol) Sex and Gender Information Value Date Recorded Sex Assigned at Not on file Legal Sex Male 9:38 AM EST Gender Identity Not on file Sexual Orientation Not on file Last Filed Vital Signs Vital Sign Reading Time Taken Comments Blood Pressure 110/70 01/10/2020 1:34 PM EST Pulse - - Temperature - - Respiratory Rate - - Oxygen Saturation - - Inhaled Oxygen Concentration - - Weight 102 kg (225 lb) 01/10/2020 1:34 PM EST Height 190.5 cm (6' 3 ) 12/20/2019 1:28 PM EST Body Mass Index 28.12 12/20/2019 1:28 PM EST Plan of Treatment Health Maintenance Due Date Last Done Comments Pneumococcal Vaccine: Pediat rics (0 to 5 Years) and At-Risk Patients (6 to 64 Years) (1 of 2 - PCV) 1969 Colorectal Cancer Screening: Annual FOBT 2012 Colorectal Cancer Screening: Colonoscopy 2012 Colorectal Cancer Screening: Sigmoidoscopy 2012 Diabetes: Hemoglobin A1C 12/20/2019 Diabetes: Ophthalmology Exam 12/20/2019 Diabetes: Pedal Pulse Checked 12/20/2019 Diabetes: Sensory Foot Exam 12/20/2019 Diabetes: Visual Foot Exam 12/20/2019 Influenza Vaccine (#1) 2024 Hepatitis B Vaccine Aged Out No longe r eligible based on patient's age to complete this topic Insurance [employer] Care Teams Environmental Consultant Relationship Specialty Start Date End Date Zoila Damian MD [facility] [place] [address] PCP - General Internal Medicine 11/15/19
--- OUTSIDE RECORDS SUMMARY | 2025-01-25 17:28 | XMS_ITS | Patient Health Record ---
Author Organization [facility] Address [address] [place] [address] Care Team Providers Care Sound Assistant Name Role Phone Rickie JACOB, [facility] Primary Care Provider Arnol Randall [phone] ALLERGIES Allergen (clinical drug ingredient) Drug/Non Drug [...] confirmed Screening for malignant neoplasm of colon (390043982) Problem History of adenomatous polyp of colon (Z86.010) Active confirmed History of adenomatous polyp of colon (249601878) Problem Diarrhea (R19.7) Active confirmed Diarr hea (56163044) Problem Preprocedural examination (Z01.818) Active confirmed Preprocedural examination (207477568325999 ) PLAN OF TREATMENT Pending Test Test Name Order Date CELIAC PANEL #10 09/26/2020 Future Test Test Name Order Date COLONOSCOPY 05/08/2015 COLONOSCOPY 09/26/2020 Insurance Providers Payer Name Payer Address Payer Phone Subscriber Number Group Number Insured Name Patient Relationship to Insured Coverage Start Date Coverage End Date [employer] [address] [place] [address] [phone] [id number] ASHLEY FAM Self - patient is the insured MEDICAL (GENERAL) HISTORY Medical History History ICD Code LA 2007--angioplasty HTN Denies CVA,Lung disease,renal disease Hyperlipidemia Kidney stones--cystoscopies and/or ESWL NIDDM 2016 Back Surgery Screening colonoscopy in 07/01 015 with removal of 2 small tubular adenomas removed Depression Surgical History Surgery Date(Month/Year) Back Surgery 2017 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
--- OUTSIDE RECORDS SUMMARY | 2025-01-25 17:28 | XMS_ITS | Encounter Summary ---
Author Organization [facility], Address [address] [place] [address] Phone Care Team Providers Care Strategic Partnership Manager Name Role Phone Zoila Damian MD Primary Care Provider [phone] Reason for Visit * Reason Comments Med Refill Encounter Details Date Type Department Care Team (Late st Contact Info) Description 02/01/2021 Refill [facility] [address] [place] [address] Yuki Hazel MD Stone in [...] (HCC) documented in this encounter Care Teams Strategic Partnership Manager Relationship Specialty Start Date End Date Zoila Damian MD 1963 [facility] [place] [address] PCP - General Internal Medicine 11/15/19 documented as of this encounter
== END 2025-01-25 14:33 | disposition home or self-care (01) ==
PROVIDERS: PCP Internal Medicine; Visit Provider Internal Medicine
DX: I11.9 Hypertensive heart disease without heart failure (principal); I25.10 Atherosclerotic heart disease of native coronary artery without angina pectoris; I71.43 Infrarenal abdominal aortic aneurysm, without rupture; E11.8 Type 2 diabetes mellitus with unspecified complications; F17.210 Nicotine dependence, cigarettes, uncomplicated; R94.31 Abnormal electrocardiogram [ECG] [EKG]
CPT/HCPCS: 93010; 99214; G2211

== ENCOUNTER → 2025-01-25 14:09 | Outpatient (BNVA) | payer OTHER, SELFPAY | PROVIDERS: PCP Internal Medicine; Visit Provider Internal Medicine | DX: I25.10 Atherosclerotic heart disease of native coronary artery without angina pectoris (principal); E11.8 Type 2 diabetes mellitus with unspecified complications; I10 Essential (primary) hypertension; I77.810 Thoracic aortic ectasia; I71.43 Infrarenal abdominal aortic aneurysm, without rupture; F17.210 Nicotine dependence, cigarettes, uncomplicated; Z79.82 Long term (current) use of aspirin; Z79.899 Other long term (current) drug therapy | CPT/HCPCS: 93005 ==

== ENCOUNTER 2025-03-01 12:43 | Outpatient (AMB) | payer OTHER, SELFPAY ==
--- NOTE | 2025-03-01 12:46 | MHC.PC.OV ---
Vital Signs 03/01/25 12:47 Height 6 ft 3 in Weight 242 lb BMI 30.2 BP 110/68 Blood Pressure Location Lt brachial Position Sitting Respiration 18 Pulse 95 Pulse Source Pulse Oximeter Temp 97.4 F Temp Source Oral Pulse Oximetry (%) 95 Oxygen Delivery Method Room Air Intake Visit Reasons: Med Review Allergies lisinopril [LISINOPRIL] Allergy (Unknown, Verified 03/01/25 12:47) TONGUE SWELLING, anaphylaxis, swelling Medication List - Last Reconciled 03/01/25 by Zoila Damian MD amlodipine 5 mg PO DAILY 90 days aspirin (Adult Low Dose Aspirin) 81 mg PO DAILY atorvastatin 80 mg PO DAILY blood sugar diagnostic (FreeStyle Lite Strips) Use to check fasting blood sugar daily. blood-glucose meter (FreeStyle Lite Meter kit) Use to check fasting blood sugar daily clopidogrel (Plavix) 75 mg PO DIRECTED ezetimibe (Zetia) 10 mg PO DAILY famotidine 20 mg (2.5 mL) PO BID glipizide 10 mg PO BID 90 days lancets (FreeStyle Lancets) Use to check fasting blood sugar daily. metoprolol succinate ER 50 mg PO DAILY pioglitazone 45 mg PO DAILY quetiapine (Seroquel) 50 mg PO BEDTIME 90 days sertraline 200 mg (2 x 100 mg) PO DAILY 90 days Tobacco use date assessed: 03/01/25 Dental Screening Dental Screen Date: 03/01/25 Did you have a dental visit in the last 12 months?: Yes Did you have a dental problem in the last 6 months where you did not have access to dental care?: No Was dental information given to patient?: Patient has dentist HPI Med Review HPI Details History - The patient is a 59-year-old male presenting for a three-month follow-up appointment. - Hypertension is well-controlled under current medication as evidenced by a recorded satisfactory blood pressure. - Hyperlipidemia is under management with atorvastatin and Zetia, showing favorable results with controlled cholesterol levels. - Diabetes management includes glipizide and pioglitazone, with blood sugar levels remaining within good limits as per the latest labs. - GERD remains stable under famotidine treatment, with no new complaints. - The patient has a history of depression and anxiety, managed with quetapine and citraline, without reports of adverse effects. - November labs indicate normal renal and hepatic function, absence of anemia, and sufficient overall blood count. Problem List - Hypertension - Hyperlipidemia - Gastroesophageal Reflux Disease (GERD) - Type 2 Diabetes Mellitus - Depression - Anxiety Patient Instructions - Continue taking prescribed medications as indicated. - Maintain regular follow-up appointments and prepare for required blood tests before the next visit. - Engage in regular physical activity, such as walking, to facilitate weight loss and improve heart and sugar health. - Use the contact information provided to communicate any health concerns or medication refills. - Ensure any medication-related queries or needs are addressed through the designated call procedures. Review of Systems - General: No fever no chills - Neurological: No headaches no dizziness - Ear nose throat: No sore throat no hearing difficulty no ear pain - Cardiovascular: No syncope, no chest pain, no palpitations - Gastrointestinal: No nausea vomiting or diarrhea - Endocrine: No polyuria polydipsia no heat intolerance - Genitourinary: No dysuria , no blood in urine Physical Exam General: No acute distress HEENT: No acute findings Neck: Supple Respiratory system: Able to talk in full sentences, no audible wheeze Cardiovascular: S1-S2 regular in rate and rhythm Gastrointestinal: No pain Extremities: No swelling of ankles AIRPLANE RENTAL CLERK: Alert awake oriented x3 motor sensory intact Skin: Normal turgor PFSH Medical History Abdominal aortic aneurysm Type 2 diabetes mellitus with unspecified complications History of kidney stones On beta marii at home PONV (postoperative nausea and vomiting) Chronic back pain Depression Hx of myocardial infarction CAD (coronary artery disease) Surgical History Status post cardiac catheterization Hx of colonoscopy History of amputation of finger of left hand History of back surgery History of lithotripsy Hx of coronary angioplasty Hx of tonsillectomy Family History Father CAD (coronary artery disease) HTN (hypertension) Hyperlipidemia Mother No problems noted. Brother No problems noted. Daughter No problems noted. Daughter No problems noted. Social History Housing: House Alcohol intake: current Alcohol intake frequency: holidays/special occasions only Patient Tobacco Use Status: Current everyday Tobacco user Tobacco use type: Cigarette Cigarette Packs Per Day: 0.5 Cigarettes Per Day: 10.0 e-Cigarette/Vaping Use: Never Used service: No Current occupational status: retired Cognitive needs: No Hearing needs: No Vision needs: No Questionnaire Thrive Questionnaire Date Thrive assessed: 12/07/24 I am a: Patient What is your living situation today?: I have a steady place to live Within the past 12 months, did the food you bought not last and you didn't have the money to get more?: I choose not to answer this question Within the past 12 months, did you worry whether your food would run out before you got money to buy more?: I choose not to answer this question Do you have trouble paying for medicines?: Yes Do you have trouble getting transportation to medical appointments?: Yes Do you have trouble paying your heating and electricity bill?: No Do you have trouble taking care of your child, family member or friend?: No Do you have trouble with day-to-day activities such as bathing, preparing meals, shopping, managing finances, etc.?: No Are you currently unemployed and looking for a job?: No Are you interested in more education?: No Please select the resources that you would like help with: None Currently or been in a relationship where the following occur: I choose not to answer THRIVE Score: 1 UGO-7 AMB Questionnaire UGO-7 Date UGO - 7 assessed: 12/07/24 Source: Developed by Drs. Arnol Reynolds, Clary Martinez, Jose Coleman and colleagues, with an educational cornelio from [employer]. Physical exam (Primary Care) Vital Signs: Last Vital Signs Temp 97.4 F 03/01/25 12:47 Pulse 95 03/01/25 12:47 Resp 18 03/01/25 12:47 BP 110/68 03/01/25 12:47 Pulse Ox 95 03/01/25 12:47 Oxygen Delivery Method Room Air 03/01/25 12:47 BMI result Body Mass Index 30.2 Tobacco/Smoking Status: Tobacco use Status Tobacco use date assessed 03/01/25 03/01/25 12:52 Patient Tobacco Use Status Current everyday Tobacco 03/01/25 12:52 Tobacco use type Cigarette 03/01/25 12:52 e-Cigarette/Vaping Use Never Used 03/01/25 12:52 Thrive Assessment: Date of Thrive Assessment Date Thrive assessed 12/07/24 03/01/25 12:52 Currently or been in a relationship where the following occur: I choose not to answer Coding Level of Care Code Est Pt Level 4 (97908) Complex EM visit Add On G2211 Diagnoses Type 2 diabetes mellitus with unspecified complications E11.8 Hypertension, essential I10 Recurrent major depressive disorder, in partial remission F33.41 Active/Remission status: in partial remission Anxiety, generalized F41.1 Lipid disorder E78.9 Atherosclerotic cardiovascular disease I25.10 Cigarette nicotine dependence without complication F17.210 Nicotine product type: cigarettes Substance use status: uncomplicated Stented coronary artery Z95.5 Ascending aorta dilatation I77.810 Class 1 obesity due to excess calories with serious comorbidity and body mass index (BMI) of 30.0 to 30.9 in adult E66.811; E66.09; Z68.30 Obesity classification: adult class 1 (BMI 30 - 34.9) Serious obesity comorbidity presence: with serious comorbidity Body mass index: BMI 30.0-30.9 Assessment & Plan Assessment & Plan (1) Type 2 diabetes mellitus with unspecified complications: Code(s): E11.8 - Type 2 diabetes mellitus with unspecified complications Category: Medical (2) Hypertension, essential: Code(s): I10 - Essential (primary) hypertension Category: Medical (3) Major depression, recurrent: Code(s): F33.9 - Major depressive disorder, recurrent, unspecified Category: Medical Qualifiers: Active/Remission status: in partial remission Qualified Code(s): F33.41 - Major depressive disorder, recurrent, in partial remission (4) Anxiety, generalized: Code(s): F41.1 - Generalized anxiety disorder Category: Medical (5) Lipid disorder: Code(s): E78.9 - Disorder of lipoprotein metabolism, unspecified Category: Medical (6) Atherosclerotic cardiovascular disease: Code(s): I25.10 - Atherosclerotic heart disease of [place] coronary artery without angina pectoris Category: Medical (7) Nicotine dependence: Code(s): F17.200 - Nicotine dependence, unspecified, uncomplicated Category: Medical Qualifiers: Nicotine product type: cigarettes Substance use status: uncomplicated Qualified Code(s): F17.210 - Nicotine dependence, cigarettes, uncomplicated (8) Stented coronary artery: Code(s): Z95.5 - Presence of coronary angioplasty implant and graft Category: Surgical (9) Ascending aorta dilatation: Code(s): I77.810 - Thoracic aortic ectasia Category: Medical (10) Obesity due to excess calories: Code(s): E66.09 - Other obesity due to excess calories Category: Medical Qualifiers: Obesity classification: adult class 1 (BMI 30 - 34.9) Serious obesity comorbidity presence: with serious comorbidity Body mass index: BMI 30.0-30.9 Qualified Code(s): E66.811 - Obesity, class 1; E66.09 - Other obesity due to excess calories; Z68.30 - Body mass index [BMI] 30.0-30.9, adult Plan History - The patient is a 59-year-old male presenting for a three-month follow-up appointment. - Hypertension is well-controlled under current medication as evidenced by a recorded satisfactory blood pressure. - Hyperlipidemia is under management with atorvastatin and Zetia, showing favorable results with controlled cholesterol levels. - Diabetes management includes glipizide and pioglitazone, with blood sugar levels remaining within good limits as per the latest labs. - GERD remains stable under famotidine treatment, with no new complaints. - The patient has a history of depression and anxiety, managed with quetapine and citraline, without reports of adverse effects. - November labs indicate normal renal and hepatic function, absence of anemia, and sufficient overall blood count. Problem List - Hypertension - Hyperlipidemia - Gastroesophageal Reflux Disease (GERD) - Type 2 Diabetes Mellitus - Depression - Anxiety Patient Instructions - Continue taking prescribed medications as indicated. - Maintain regular follow-up appointments and prepare for required blood tests before the next visit. - Engage in regular physical activity, such as walking, to facilitate weight loss and improve heart and sugar health. - Use the contact information provided to communicate any health concerns or medication refills. - Ensure any medication-related queries or needs are addressed through the designated call procedures. Orders: Orders Comprehensive Met. Panel 3 Months E11.8 - Type 2 diabetes mellitus with unspecified complications, E66.09 - Other obesity due to excess calories, E78.9 - Disorder of lipoprotein metabolism, unspecified, F17.210 - Nicotine dependence, cigarettes, uncomplicated, F33.41 - Major depressive disorder, recurrent, in partial remission, F41.1 - Generalized anxiety disorder, I10 - Essential (primary) hypertension, I25.10 - Atherosclerotic heart disease of [place] coronary artery without angina pectoris, I77.810 - Thoracic aortic ectasia, Z95.5 - Presence of coronary angioplasty implant and graft LDL Cholesterol Direct 3 Months E11.8 - Type 2 diabetes mellitus with unspecified complications, E66.09 - Other obesity due to excess calories, E78.9 - Disorder of lipoprotein metabolism, unspecified, F17.210 - Nicotine dependence, cigarettes, uncomplicated, F33.41 - Major depressive disorder, recurrent, in partial remission, F41.1 - Generalized anxiety disorder, I10 - Essential (primary) hypertension, I25.10 - Atherosclerotic heart disease of [place] coronary artery without angina pectoris, I77.810 - Thoracic aortic ectasia, Z95.5 - Presence of coronary angioplasty implant and graft Hemoglobin A1c 3 Months E11.8 - Type 2 diabetes mellitus with unspecified complications, E66.09 - Other obesity due to excess calories, E78.9 - Disorder of lipoprotein metabolism, unspecified, F17.210 - Nicotine dependence, cigarettes, uncomplicated, F33.41 - Major depressive disorder, recurrent, in partial remission, F41.1 - Generalized anxiety disorder, I10 - Essential (primary) hypertension, I25.10 - Atherosclerotic heart disease of [place] coronary artery without angina pectoris, I77.810 - Thoracic aortic ectasia, Z95.5 - Presence of coronary angioplasty implant and graft Complete Blood Count Auto Diff 3 Months E11.8 - Type 2 diabetes mellitus with unspecified complications, E66.09 - Other obesity due to excess calories, E78.9 - Disorder of lipoprotein metabolism, unspecified, F17.210 - Nicotine dependence, cigarettes, uncomplicated, F33.41 - Major depressive disorder, recurrent, in partial remission, F41.1 - Generalized anxiety disorder, I10 - Essential (primary) hypertension, I25.10 - Atherosclerotic heart disease of [place] coronary artery without angina pectoris, I77.810 - Thoracic aortic ectasia, Z95.5 - Presence of coronary angioplasty implant and graft
[2025-03-01 12:47] VITALS: BP 110/68; PULSE 95; RESP 18; TEMP 36.3; O2SAT 95; BMI 30.2
--- OUTSIDE RECORDS SUMMARY | 2025-03-01 15:14 | XMS_ITS | Encounter Summary ---
Author Organization [facility], Address [address] [place] [address] Phone Care Team Providers Care Multicultural Manager Name Role Phone Zoila Damian MD Primary Care Provider [phone] Reason for Visit * Reason Comments Med Refill Encounter Details Date Type Department Care Team (Late st Contact Info) Description 08/21/2021 Refill [facility] [address] [place] [address] Yuki Hazel MD Stone in [...] (HCC) documented in this encounter Care Teams Multicultural Manager Relationship Specialty Start Date End Date Zoila Damian MD [address] [facility] [place] [address] PCP - General Internal Medicine 11/15/19 documented as of this encounter
--- OUTSIDE RECORDS SUMMARY | 2025-03-01 15:14 | XMS_ITS | Clinical Summary ---
Author Organization [facility] [place], Address [address] [place] [address] [place] [address] Phone Care Team Providers Care Assistant Store Manager Trainee Name Role Phone Zoila Damian MD Primary Care Provider Allergies Active Allergy Reactions Criticality Noted Date [...] complete this topic Insurance [employer] Care Teams Assistant Store Manager Trainee Relationship Specialty Start Date End Date Zoila Damian MD [place] [address] PCP - General Internal Medicine 11/15/19
--- OUTSIDE RECORDS SUMMARY | 2025-03-01 15:14 | XMS_ITS | Encounter Summary ---
Author Organization [facility], Address [address] [place] [address] Phone Care Team Providers Care Global Project Manager Name Role Phone Zoila Damian MD Primary Care Provider [phone] Reason for Visit * Reason Comments Med Refill Encounter Details Date Type Department Care Team (Late st Contact Info) Description 02/27/2021 Refill [facility] [address] [place] [address] Yuki Hazel MD Stone in [...] (HCC) documented in this encounter Care Teams Global Project Manager Relationship Specialty Start Date End Date Zoila Damian MD 1963 [facility] [place] [address] PCP - General Internal Medicine 11/15/19 documented as of this encounter
--- OUTSIDE RECORDS SUMMARY | 2025-03-01 15:14 | XMS_ITS | Encounter Summary ---
Author Organization [facility], Address [address] [place] [address] Phone Care Team Providers Care Production Support Analyst Name Role Phone Zoila Damian MD Primary Care Provider [phone] Reason for Visit * Reason Comments Med Refill Encounter Details Date Type Department Care Team (Late st Contact Info) Description 02/23/2021 Refill [facility] [address] [place] [address] Yuki Hazel MD [place] [...] (HCC) documented in this encounter Care Teams Production Support Analyst Relationship Specialty Start Date End Date Zoila Damian MD 1963 [facility] [place] [address] PCP - General Internal Medicine 11/15/19 documented as of this encounter
--- OUTSIDE RECORDS SUMMARY | 2025-03-01 15:14 | XMS_ITS | Encounter Summary ---
Author Organization [facility], Address [address] [place] [address] Phone Care Team Providers Care Ab Initio Etl Developer Name Role Phone Zoila Damian MD Primary Care Provider [phone] Reason for Visit * Reason Comments Med Refill Encounter Details Date Type Department Care Team (Late st Contact Info) Description 02/01/2021 Refill [facility] [address] [place] [address] Yuki Hazel MD [place] [...] (HCC) documented in this encounter Care Teams Ab Initio Etl Developer Relationship Specialty Start Date End Date Zoila Damian MD 1963 [facility] [place] [address] PCP - General Internal Medicine 11/15/19 documented as of this encounter
--- OUTSIDE RECORDS SUMMARY | 2025-03-01 15:15 | XMS_ITS | Patient Health Record ---
Author Organization [facility] Address [address] [place] [address] Care Team Providers Care Cash Specialist Name Role Phone Rickie JACOB, [facility] Primary Care Provider Arnol Randall [phone] Allergies Allergen (clinical drug ingredient) Drug/Non Drug Allergy documented on EMR Reaction Allergy Type Onset Date Status lisinopril Lisinopril Unknown Drug Allergy Activ e Reason For Referral No Information Medications Medication SIG (Take, Route, Frequency, Duration) Notes [...] a day Active Sertraline HCl Activ e Immunizations Vaccine Route Administration Date Status Comme nts Influenza Unknown 08/30/2020 Administered Social History Tobacco Use: Social History Observation Description Date Details (start date - stop date) Current Smoker NA - NA Tobacco Use/Smoking Question Answer Notes Patient is [...] Never (0 point) Points 1 Interpretation Negative Section Notes: Smoker;no sig alcohol Smoker; drinks occasionally Uses medical marijuana Problems Problem Type SNOMED Code ICD Code Onset Dates Problem Status W/U Status Risk Notes Problem Screening for malignant neoplasm of colon (987875727) Encounter for screening for malignant neoplasm of colon (Z12.11) Active confirmed Problem History of adenomatous polyp of colon (217422680) History of adenomatous polyp of colon (Z86.010) Active confirmed Problem Diarrhea (48374985) Diarrhea (R19.7) Active confirmed Problem Preprocedural examination (909155433476065) Preprocedural examination (Z01.818) Active confirmed Plan Of Treatment Pending Test Test Name Order Date CELIAC PANEL #10 09/26/2020 Future Test Test Name Order Date COLONOSCOPY 05/08/2015 COLONOSCOPY 09/26/2020 Insurance Providers Payer Name Payer Address Payer Phone Subscriber Number Group Number Insured Name Patient Relationship to Insured Coverage Start Date Coverage End Date [facility] [address] [place] [address] [id number] ASHLEY FAM Self - patient is the insured Medical (General) History Medical History History ICD Code AK 2007--angioplasty HTN Denies CVA,Lung disease,renal disease Hyperlipidemia Kidney stones--cystoscopies and/or ESWL NIDDM 2016 Back Surgery Screening colonoscopy in 07/01 015 with removal of 2 small tubular adenomas removed Depression Surgical History Surgery Date(Month/Year) Back Surgery 2017 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
== END 2025-03-01 13:01 | disposition home or self-care (01) ==
LOC: HO.HMCC 12:44
PROVIDERS: PCP Internal Medicine; Visit Provider Internal Medicine
DX: E11.8 Type 2 diabetes mellitus with unspecified complications (principal); F33.41 Major depressive disorder, recurrent, in partial remission; I77.810 Thoracic aortic ectasia; I10 Essential (primary) hypertension; F41.1 Generalized anxiety disorder; E78.9 Disorder of lipoprotein metabolism, unspecified; I25.10 Atherosclerotic heart disease of native coronary artery without angina pectoris; E66.811 Obesity, class 1; Z68.30 Body mass index [BMI] 30.0-30.9, adult; F17.210 Nicotine dependence, cigarettes, uncomplicated; Z95.5 Presence of coronary angioplasty implant and graft

== ENCOUNTER → 2025-03-01 12:43 | Outpatient (BNVA) | payer OTHER, SELFPAY | PROVIDERS: PCP Internal Medicine; Visit Provider Internal Medicine ==

== ENCOUNTER 2025-07-01 07:29 | Outpatient (REF) | payer OTHER, SELFPAY ==
--- OUTSIDE RECORDS SUMMARY | 2025-07-01 07:31 | XMS_ITS | Clinical Summary ---
Author Organization [facility] Address [address] [address] Phone Care Team Providers Care Public Safety Dispatcher Name Role Phone Alli Swartz DO Primary Care Provider [phone] Allergies Active Allergy Reactions Criticality Noted Date Comments Lisinopril Unknown 02/12/2016 Medications amLODIPine (NORVASC) 5 MG tablet Take 1 tablet by mouth daily. Active aspirin 81 MG EC tablet Take 1 tablet by mouth daily. Active glipiZIDE (GLUCOTROL) 5 MG tablet Take 1 tablet by mouth daily. Active atorvastatin (LIPITOR) 80 MG tablet Take 1 tablet by mouth daily. Active metFORMIN (GLUCOPHAGE) 1000 MG tablet Take 500 mg by mouth 2 (two) times a day with meals. Active metoprolol succinate (TOPROL-XL) 100 MG 24 hr tablet Orally Acti ve sertraline (ZOLOFT) 100 MG tablet Take 100 mg by mouth daily. Active traZODone (DESYREL) 100 MG tablet Take 100 mg by mouth nightly. Active Active Problems Problem Noted Date Diagnosed Date Essential hypertension 05/27/2018 Assessment & Plan (09/08/2019 8:05 AM EDT): Controlled on present therapy. No changes. Assessment & Plan (03/09/2019 8:10 AM EDT): Controlled on present therapy. Assessment & Plan (09/06/2018 9:01 AM EDT): Well-controlled on present therapy. Mixed hyperlipidemia 05/27/2018 Assessment & Plan (09/08/2019 8:05 AM EDT): Recent profile is very similar with an LDL of 83 and HDL of 37. Renal and hepatic function remain benign. Assessment & Plan (03/09/2019 8:10 AM EDT): Recent profile includes an LDL of 78 with an HDL of 35 and triglycerides 121. Creatinine is 1.1 with a BUN of 17 and a potassium of 4.8. Assessment & Plan (09/06/2018 9:01 AM EDT): Remains on his statin and I will have labs drawn this morning and again in 6 months at his next visit. Tobacco abuse 05/27/2018 Assessment & Plan (09/08/2019 8:06 AM EDT): We again discussed the need to discontinue that habit and then once again will try. Assessment & Plan (03/09/2019 8:10 AM EDT): Again encouraged to quit. Assessment & Plan (09/06/2018 9:01 AM EDT): I have again emphasized the need to discontinue this habit considering his risk factors. Family History Medical History Relation Comments CV disease Father 2 Relation Status Comments Father 1 Father 2 Social History Tobacco Use Types Packs/Day Years Used Date Smoking Tobacco: Every Day Smokeless Tobacco: Never Education Answer Date Recorded Are you interested in more education? Not on hubert e 03/27/2023 Are you concerned about learning? Not on file 03/27/2023 No 03/27/2023 No 03/27/2023 Digital Access Answer Date Recorded No 04/27/2023 No 04/27/2023 Reliable internet access at home? Not on file 04/27/2023 Device with a working camera? Not on file Sex and Gender Information Value Date Recorded Sex Assigned at Not on file Legal Sex Male 10:34 PM EDT Gender Identity Not on file Sexual Orientation Not on file Last Filed Vital Signs Vital Sign Reading Time Taken Comments Blood Pressure 130/70 09/08/2019 7:51 AM EDT Pulse 61 09/08/2019 7:51 AM EDT Temperature - - Respiratory Rate - - Oxygen Saturation 97% 09/08/2019 7:51 AM EDT Inhaled Oxygen Concentration - - Weight 99.8 kg (220 lb) 09/08/2019 7:51 AM EDT Height 193 cm (6' 4 ) 09/08/2019 7:51 AM EDT Body Mass Index 26.78 09/08/2019 7:51 AM EDT Plan of Treatment Health Maintenance Due Date Last Done Comments BLOOD PRESSURE 1963 DEPRESSION SCREENING 1975 SMOKING Hx and SMOKELESS TOBACCO SCREENING 1976 HEPATITIS C SCREENING 1981 HIV ONE-TIME SCREENING (18-6 5 YEARS) 1981 COLOGUARD 2008 COLONOSCOPY 2008 COLORECTAL CANCER SCREENING 2008 FIT TEST 2008 FOBT 2008 SIGMOIDOSCOPY 2008 VIRTUAL COLONOSCOPY 2008 PNEUMOCOCCAL VACCINES (50+ years) (2 of 2 - PCV) 12/18/2018 12/18/2017 CREATININE LEVEL 09/06/2019 09/06/2018 LIPID PANEL 09/06/2023 09/06/2018 COVID-19 VACCINE (3 - 2023-2 5 season) 2024 04/10/2021, 03/20/2021 Adult Td,Tdap Booster 11/19/2027 11/19/2017 RSV VACCINE (1 - 1-dose 75+ series) 2038 ZOSTER VACCINES Completed 11/27/2020, 08/27/2020 HEPATITIS A VACCINES Aged Out No long er eligible based on patient's age to complete this topic HIB VACCINES Aged Out No longer eligi ble based on patient's age to complete this topic MENINGOCOCCAL VACCINES (ACWY) Aged Out No longer eligible based on patient's age to complete this topic MENINGOCOCCAL VACCINES (B) Aged Out N o longer eligible based on patient's age to complete this topic Medical Devices Not on file Procedures Procedure Name Priority Date/Time Associated Diagnosis Comments LIPID PANEL Routine 09/06/2018 9:09 AM EDT Mixed hyperlipidemia BASIC METABOLIC PANEL Routine 09/06/2018 9:09 AM EDT Mixed hyperlipidemia from Last 3 Months or Most Recently Relevant to Health Maintenance Results * Lipid panel (09/06/2018 9:09 AM EDT) HDL 35 mg/dL [facility] Comment: Interpretation: Risk Level Males Decreased >45 mg/dL Average 40-45 mg/dL Increased <40 mg/dL CHOLESTEROL 137 0 - 240 mg/dL [facility] TRIGLYCERIDES 121 30 - 160 mg/dL [facility] LDL 78 50 - 129 mg/dL [facility] Comment: LDL levels in terms of risk for coronary heart disease: <100 mg/dL: Optimal 100-129 mg/dL: Near or above optimal 130-159 mg/dL: Borderline high 160-189 mg/dL: High >190 mg/dL: Very High CARDIAC RISK RATIO 3.9 3.4 - 5.0 [facility] Blood 09/06/2018 9:09 AM EDT 09/06/2018 9:12 AM EDT Ronaldo Ruiz MD LAB BLOOD ORDERABLES Final Resu lt [address] [address] * (ABNORMAL) Basic metabolic panel (09/06/2018 9:09 AM EDT) SODIUM 141 133 - 146 mmol/L [facility] CHLORIDE 103 96 - 108 mmol/L [facility] POTASSIUM 4.8 3.3 - 5.1 mmol/L [facility] CO2 24 21 - 35 mmol/L [facility] BUN 17 6 - 19 mg/dL [facility] CREATININE 1.10 0.5 - 1.5 mg/dL [facility] GLUCOSE 206(H) 70 - 99 mg/dL [facility] CALCIUM 9.4 8.4 - 10.3 mg/dL [facility] EGFR 76 >59 mL/min/1.7 3m2 [facility] Comment:If patient is black, multiply result by 1.159. Estimated glomerular filtration rate calculated using the CKD-EPI equation. ANION GAP 19 10 - 20 mmol/L [facility] Blood 09/06/2018 9:09 AM EDT 09/06/2018 9:12 AM EDT us Ronaldo Ruiz MD LAB BLOOD ORDERABLES Final Resu lt [address] [address] from Last 3 Months or Most Recently Relevant to Health Maintenance Insurance [employer] PPO CIGNA PPO CIGNA PPO CIGNA PPO CIGNA PPO CIGNA PPO CIGNA PPO [employer] PPO Member Subscriber Plan / Payer (Ef fective 2006-Present) Name:Patrick Fam Relation to Subscriber:Self Name:PATRICK FAM Payer ID:[id number] (NAIC) Type:PPO Address: [address] [place] [id number] [employer] PPO Care Teams Public Safety Dispatcher Relationship Specialty Start Date End Date Alli Swartz DO [address] [place] [address] PCP - General 12/03/17 Additional Source Comments The information contained in this document represents components of the legal health record. It is not the complete legal health record.[facility]
--- OUTSIDE RECORDS SUMMARY | 2025-07-01 07:31 | XMS_ITS | Clinical Summary ---
Author Organization [facility], Address [address] [place] [address] [place] [address] Phone Care Team Providers Care Nursing Center Tutor Name Role Phone Zoila Damian MD Primary Care Provider [phone] Allergies Active Allergy Reactions Criticality Noted Date [...] Due Date Last Done Comments Pneumococcal Vaccine: 50+ Ye ars (1 of 2 - PCV) 1982 Colorectal Cancer Screening: Annual FOBT 2012 Colorectal Cancer Screening: Colonoscopy 2012 Colorectal Cancer Screening: Sigmoidoscopy 2012 Diabetes: Hemoglobin A1C 12/20/2019 Diabetes: Ophthalmology Exam 12/20/2019 Diabetes: Pedal Pulse Checked 12/20/2019 Diabetes: Sensory Foot Exam 12/20/2019 Diabetes: Visual Foot Exam 12/20/2019 Influenza Vaccine (#1) 2025 Hepatitis B Vaccine Aged Out No longe r eligible based on patient's age to complete this topic Insurance [employer] Care Teams Nursing Center Tutor Relationship Specialty Start Date End Date Zoila Damian MD 1963 [place] [address] PCP - General Internal Medicine 11/15/19
--- OUTSIDE RECORDS SUMMARY | 2025-07-01 07:31 | XMS_ITS | Patient Health Record ---
Author Organization [facility] Address [address] [place] [address] Care Team Providers Care Ethics Manager Name Role Phone [facility] Primary Care Provider Arnol Randall [phone] Allergies Allergen (clinical drug ingredient) Drug/Non Drug [...] Problem Screening for malignant neoplasm of colon (689714099) Encounter for screening for malignant neoplasm of colon (Z12.11) Active confirmed Problem History of adenomatous polyp of colon (480624009) History of adenomatous polyp of colon (Z86.010) Active confirmed Problem Diarrhea (R19.7) Active confirmed Problem Preprocedural examination (254574689506526) Preprocedural examination (Z01.818) Active confirmed Plan Of Treatment Pending Test Test Name Order Date CELIAC PANEL #10 09/26/2020 Future Test Test Name Order Date COLONOSCOPY 05/08/2015 COLONOSCOPY 09/26/2020 Insurance Providers Payer Name Payer Address Payer Phone Subscriber Number Group Number Insured Name Patient Relationship to Insured Coverage Start Date Coverage End Date [employer] [address] [place] [address] [id number] ASHLEY FAM Self - patient is the insured Medical (General) History Medical History History ICD Code LA 2007--angioplasty HTN Denies CVA,Lung disease,renal disease Hyperlipidemia Kidney stones--cystoscopies and/or ESWL NIDDM 2016 Back Surgery Screening colonoscopy in 07/01 015 with removal of 2 small tubular adenomas removed Depression Surgical History Surgery Date(Month/Year) Back Surgery 2017 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
[2025-07-01 11:12] LABS: MANUAL DIFF FLAG NO
[2025-07-01 11:18] LABS: Hematocrit 44.4 % (42.0-52.0); Hemoglobin 15.4 g/dl (14.0-18.0); Imm Gran Abs Auto 0.03 X10*3/uL (0.00-0.03); Imm Gran Pct Auto 0.4 % (0.0-0.4); Lymphocytes Absolute Auto 2.9 X10*3/uL (1.2-4.9); Mean Corpuscular HGB Conc 34.7 g/dl (31.0-36.0); Mean Corpuscular Hemoglobin 33.2 pg (27.0-33.0); Mean Corpuscular Volume 95.7 fL (80.0-98.0); NRBC Abs Auto 0.000 X10*3/uL (0.0-0.012); NRBC Pct Auto 0.0 /100WBC (0.0-0.2); Platelet Count 144 X10*3/uL (160-400); Red Blood Count 4.64 X10*6/uL (4.60-5.80); White Blood Count 8.3 X10*3/uL (4.8-10.8)
[2025-07-01 11:30] LABS: Alanine Aminotransferase 26 U/L (0-40); Albumin Level 4.5 g/dL (3.5-5.0); Alkaline Phosphatase 106 U/L (39-117); Anion Gap 13 (12-20); Aspartate Amino Transferase 29 U/L (5-37); Blood Urea Nitrogen 17 mg/dL (9-16); Calcium 9.0 mg/dL (8.4-10.2); Carbon Dioxide 28 mmol/L (22-29); Chloride 101 mmol/L (96-108); Estimated Glomerular Filt Rate > 60; Potassium 4.8 mmol/L (3.3-5.1); Sodium 137 mmol/L (135-145); Total Protein 6.9 g/dL (6.5-8.0)
[2025-07-01 11:35] LABS: Hemoglobin A1C 254.1342 umol/L; Total Hemoglobin (HGBA1C) 3998.7247 umol/L
== END 2025-07-01 07:30 | disposition home or self-care (01) ==
LOC: HO.HMGCLDS 07:29
PROVIDERS: PCP Internal Medicine; Visit Provider Internal Medicine
DX: I10 Essential (primary) hypertension (principal); F41.1 Generalized anxiety disorder; F33.41 Major depressive disorder, recurrent, in partial remission; I25.10 Atherosclerotic heart disease of native coronary artery without angina pectoris; E11.8 Type 2 diabetes mellitus with unspecified complications; I77.810 Thoracic aortic ectasia; E66.09 Other obesity due to excess calories; E78.9 Disorder of lipoprotein metabolism, unspecified; F17.210 Nicotine dependence, cigarettes, uncomplicated; Z95.5 Presence of coronary angioplasty implant and graft
CPT/HCPCS: 36415; 80053; 83036; 83721; 85025

== ENCOUNTER → 2025-07-05 01:52 | Outpatient (BNV) | payer OTHER, SELFPAY | PROVIDERS: Visit Provider Student in an Organized Health Care Education/Training Program | DX: R04.2 Hemoptysis (principal); R06.02 Shortness of breath | CPT/HCPCS: 71046; 71275 ==

== ENCOUNTER 2025-07-05 02:06 | Emergency (ER) | payer OTHER, SELFPAY ==
--- NOTE | 2025-07-05 | ECG_ITS ---
Test Reason : SOB Blood Pressure : */* mmHG Vent. Rate : 80 BPM Atrial Rate : 80 BPM P-R Int : 150 ms QRS Dur : 70 ms QT Int : 360 ms P-R-T Axes : 52 45 68 degrees QTcB Int : 415 ms Normal sinus rhythm Normal ECG When compared with ECG of 27-Feb-2014 16:04, No significant change was found Referred By: Generic ED Physician Electronically Signed By: TRISHA MARQUEZ
--- NOTE | ~2025-07-05 | XR_ITS ---
CLINICAL HISTORY: coughing blood, shortness of breath 2 view chest x-ray Comparison: None provided Findings: The lungs are clear. Heart size is normal. No acute fracture. Soft tissue density in the anterior middle mediastinum, immediately above the heart, which may be an ascending thoracic aortic aneurysm or a mass. There is no mediastinal widening on the PA view to suggest an aortic dissection. IMPRESSION: Ascending thoracic aortic aneurysm versus mass in this patient with hemoptysis and shortness of breath. No mediastinal widening on the PA view to suggest an aortic dissection. Advise CT angiogram of the chest for further evaluation. This document has been electronically signed by: Carlos Vazquez MD on 07/05/2025 03:40:08
--- NOTE | ~2025-07-05 | CT_ITS ---
EXAMINATION: CT CHEST ANGIOGRAPHY WITH IV CONTRAST INDICATION: hemoptysis, abnormal chest x-ray COMPARISON: Correlation is made with PA and lateral views of the chest performed the same day. TECHNIQUE: Helical CT scan of the chest was performed following administration of intravenous contrast (65 mL Omnipaque 350). The contrast bolus was timed to optimally opacify the pulmonary arteries. Thin sections were obtained through the pulmonary arteries. Coronal and sagittal reformatted images were generated. 3D/MIP reconstructed images are also obtained and reviewed. This CT exam was performed with one or more of the following dose reduction techniques: automated exposure control, adjustment of the mA and/or kV according to patient size, use of iterative reconstruction technique. DLP: 348 mGy-cm CHEST: THYROID: The thyroid gland is unremarkable. PULMONARY ARTERIES: Evaluation of the pulmonary arteries is limited by poor timing of the contrast bolus. No definite intraluminal filling defects are identified within the pulmonary arteries to suggest pulmonary emboli. LUNGS: There is airspace opacity at the medial aspect of the right lung base consistent with pneumonia or hemorrhage. MEDIASTINUM: There is no mediastinal lymphadenopathy. VARUN: There is no hilar lymphadenopathy. CARDIOVASCULATURE: The heart is normal in size. There is no pericardial effusion. The ascending thoracic aorta is mildly dilated measuring up to 4.1 cm in diameter. There is a tubular structure arising from the celiac axis and supplying the medial basal segment of the right lower lobe which was seen on abdominal CT 07/03/2013. This structure demonstrates rim calcification and is not enhancing, and may be thrombosed. This appears to be supplying the area of the lung which demonstrates pneumonia or hemorrhage. DEGREE OF CORONARY CALCIFICATION: not evaluable, due to dense contrast in the coronary arteries. PLEURA: There is no pleural effusion. No pneumothorax. MAIN AIRWAYS: The mainstem bronchi are patent. There is partial opacification of right lower lobe bronchi. AXILLA: There is no axillary lymphadenopathy. UPPER ABDOMEN: The visualized portions of the liver, spleen, and adrenals are unremarkable. BONES AND SOFT TISSUES: Unremarkable. CT/CT angio chest PE protocol IMPRESSION: 1. Limited evaluation of the pulmonary arteries due to poor timing of the contrast bolus. No definite evidence of pulmonary emboli. 2. Again seen is an aberrant vessel arising from the celiac axis and supplying the medial basal segment of the right lower lobe. There is airspace opacity in this region of the lung, consistent with pneumonia or hemorrhage. 3. Mild dilatation of the ascending thoracic aorta measuring up to 4.1 cm in diameter. Electronically signed by: Arnol West MD 07/05/2025 08:23 AM EDT
[2025-07-05 02:08] VITALS: BP 153/89; PULSE 84; RESP 20; TEMP 36.4; O2SAT 95; BMI 29.5
[2025-07-05 02:36] LABS: Hematocrit 40.9 % (42.0-52.0); Hemoglobin 14.9 g/dl (14.0-18.0); Mean Corpuscular HGB Conc 36.4 g/dl (31.0-36.0); Mean Corpuscular Hemoglobin 34.2 pg (27.0-33.0); Mean Corpuscular Volume 93.8 fL (80.0-98.0); NRBC Abs Auto 0.000 X10*3/uL (0.0-0.012); NRBC Pct Auto 0.0 /100WBC (0.0-0.2); Platelet Count 165 X10*3/uL (160-400); Red Blood Count 4.36 X10*6/uL (4.60-5.80); White Blood Count 8.7 X10*3/uL (4.8-10.8)
[2025-07-05 02:43] LABS: INTERNATIONAL NORM RATIO 0.8 (0.9-1.1); Prothrombin Time 9.4 SEC (10.9-12.4)
[2025-07-05 03:02] LABS: Alanine Aminotransferase 29 U/L (0-40); Albumin Level 4.5 g/dL (3.5-5.0); Alkaline Phosphatase 99 U/L (39-117); Anion Gap 15 (12-20); Aspartate Amino Transferase 24 U/L (5-37); Blood Urea Nitrogen 21 mg/dL (9-16); Calcium 9.0 mg/dL (8.4-10.2); Carbon Dioxide 22 mmol/L (22-29); Chloride 107 mmol/L (96-108); Creatinine Clr Calc Pharmacy 75.3; Estimated Glomerular Filt Rate 52; Potassium 4.6 mmol/L (3.3-5.1); Sodium 139 mmol/L (135-145); Total Protein 6.7 g/dL (6.5-8.0)
[2025-07-05 03:09] LABS: Troponin-I High Sensitivity 6.6 ng/L (<3.5-35.0)
[2025-07-05 03:28] LABS: B Type Natriuretic Peptide 29 pg/mL (<100)
--- OUTSIDE RECORDS SUMMARY | 2025-07-05 03:30 | XMS_ITS | Clinical Summary ---
Author Organization [facility] Address [address] [address] Phone Care Team Providers Care Tanning Wheel Filler Name Role Phone Alli Swartz DO Primary Care Provider [phone] Allergies Active Allergy Reactions Criticality Noted Date [...] (09/06/2018 9:09 AM EDT) HDL 35 mg/dL [facility] Comment: Interpretation: Risk Level Males Decreased >45 mg/dL Average 40-45 mg/dL Increased <40 mg/dL CHOLESTEROL 137 0 - 240 mg/dL [facility] TRIGLYCERIDES 121 30 - 160 mg/dL [facility] LDL 78 50 - 129 mg/dL [facility] Comment: LDL levels in terms of risk for coronary heart disease: <100 mg/dL: Optimal 100-129 mg/dL: Near or above optimal 130-159 mg/dL: Borderline high 160-189 mg/dL: High >190 mg/dL: Very High CARDIAC RISK RATIO 3.9 3.4 - 5.0 C [facility] Blood 09/06/2018 9:09 AM EDT 09/06/2018 9:12 AM EDT Ronaldo Ruiz MD LAB BLOOD ORDERABLES Final Resu lt [address] [address] * (ABNORMAL) Basic metabolic panel (09/06/2018 9:09 AM EDT) SODIUM 141 133 - 146 mmol/L [facility] CHLORIDE 103 96 - 108 mmol/L [facility] POTASSIUM 4.8 3.3 - 5.1 mmol/L [facility] CO2 24 21 - 35 mmol/L [facility] BUN 17 6 - 19 mg/dL [facility] CREATININE 1.10 0.5 - 1.5 mg/dL [facility] GLUCOSE 206(H) 70 - 99 mg/dL [facility] CALCIUM 9.4 8.4 - 10.3 mg/dL [facility] EGFR 76 >59 mL/min/1.7 3m2 [facility] Comment:If patient is black, multiply result by 1.159. Estimated glomerular filtration rate calculated using the CKD-EPI equation. ANION GAP 19 10 - 20 mmol/L [facility] Blood 09/06/2018 9:09 AM EDT 09/06/2018 9:12 AM EDT us Ronaldo Ruiz MD LAB BLOOD ORDERABLES Final Resu lt [address] [address] from Last 3 Months or Most Recently Relevant to Health Maintenance Insurance [employer] PPO CIGNA PPO CIGNA PPO CIGNA PPO CIGNA PPO CIGNA PPO CIGNA PPO [employer] PPO Member Subscriber Plan / Payer (Ef fective 2006-Present) Name:Patrick Fam Relation to Subscriber:Self Name:PATRCIK FAM Payer ID:[id number] (NAIC) Type:PPO Address: [address] [place] [id number] [employer] PPO Care Teams Tanning Wheel Filler Relationship Specialty Start Date End Date Alli Swartz DO [address] [place] [address] PCP - General 12/03/17 Additional Source Comments The information contained in this document represents components of the legal health record. It is not the complete legal health record.[facility]
--- OUTSIDE RECORDS SUMMARY | 2025-07-05 03:30 | XMS_ITS | Patient Health Record ---
Author Organization [facility] Address [address] [place] [address] Care Team Providers Care Wind Development Director Name Role Phone Rickie JACOB, [facility] Primary Care Provider Arnol Randall [phone] Allergies Allergen (clinical drug ingredient) Drug/Non Drug [...] Problem Screening for malignant neoplasm of colon (958800707) Encounter for screening for malignant neoplasm of colon (Z12.11) Active confirmed Problem History of adenomatous polyp of colon (689064763) History of adenomatous polyp of colon (Z86.010) Active confirmed Problem Diarrhea (30002515) Diarrhea (R19.7) Active confirmed Problem Preprocedural examination (944920250266806) Preprocedural examination (Z01.818) Active confirmed Plan Of Treatment Pending Test Test Name Order Date CELIAC PANEL #10 09/26/2020 Future Test Test Name Order Date COLONOSCOPY 05/08/2015 COLONOSCOPY 09/26/2020 Insurance Providers Payer Name Payer Address Payer Phone Subscriber Number Group Number Insured Name Patient Relationship to Insured Coverage Start Date Coverage End Date [facility] [address] [place] [address] [id number] ASHLEY FAM Self - patient is the insured Medical (General) History Medical History History ICD Code NE 2007--angioplasty HTN Denies CVA,Lung disease,renal disease Hyperlipidemia Kidney stones--cystoscopies and/or ESWL NIDDM 2016 Back Surgery Screening colonoscopy in 07/01 015 with removal of 2 small tubular adenomas removed Depression Surgical History Surgery Date(Month/Year) Back Surgery 2017 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
[2025-07-05 03:46] VITALS: BP 137/75; PULSE 69; RESP 16; TEMP 36.6; O2SAT 95
--- NOTE | 2025-07-05 03:52 | PC.NURSE ---
pt stated to RN he had bloody stools about 2 weeks ago.
[2025-07-05 03:58] LABS: Resp Syncy Virus RNA Qual PCR NEGATIVE (Negative); SARS COV2 PCR INHOUSE NEGATIVE (Negative)
--- NOTE | 2025-07-05 07:02 | ED.GENADULT ---
HPI - General Adult General Chief complaint: General Medical Stated complaint: Coughing up blood Time Seen by Provider: 07/05/25 07:02 History of Present Illness ED Provider: paloma NICE narrative: The patient is a 59-year-old male with a history of coronary disease. In January of 2024 he received a coronary stent. He is on clopidogrel since then. He comes to the emergency room today with 2-3 days of coughing up blood. He says that this is primarily a nocturnal phenomenon. He says that when he lies down he feels a sense of something building up in the back of his throat. He then goes to the bathroom and coughs up some bloody material. He says that it looks like a fair amount of blood. He has no hemoptysis during the daytime. He has had no fever, sweats, chills. He denies chest pain. She denies pleuritic pain. He denies abdominal pain. No nausea or vomiting. No pain or swelling in his legs. The patient smokes 7-8 cigarettes a day. He came to the emergency room by private vehicle this morning. He is here with his . Related Data Home Medications ?Medication ?Instructions ?Recorded ?Confirmed aspirin 81 mg tablet,delayed 81 mg PO DAILY 04/16/22 03/01/25 release (Adult Low Dose Aspirin) Previous Rx's ?Medication ?Instructions ?Recorded blood-glucose meter (FreeStyle #1 ea 11/10/22 Lite Meter kit) lancets 28 gauge (FreeStyle #100 ea 02/03/23 Lancets) blood sugar diagnostic (FreeStyle #100 ea 02/06/23 Lite Strips) ezetimibe 10 mg tablet (Zetia) 10 mg PO DAILY #90 tabs 06/01/24 famotidine 40 mg/5 mL (8 mg/mL) 20 mg (2.5 mL) PO BID Heartburn 07/03/24 oral suspension #150 mL amlodipine 5 mg tablet 5 mg PO DAILY 90 days #90 tabs 08/17/24 pioglitazone 45 mg tablet 45 mg PO DAILY #90 tabs 09/14/24 metoprolol succinate 50 mg 50 mg PO DAILY #90 tabs 02/07/25 tablet,extended release 24 hr quetiapine 50 mg tablet (Seroquel) 50 mg PO BEDTIME 90 days #90 tabs 04/17/25 atorvastatin 80 mg tablet 80 mg PO DAILY #90 caps 04/18/25 clopidogrel 75 mg tablet 75 mg PO DAILY #90 tabs 05/08/25 glipizide 10 mg tablet 10 mg PO BID 90 days #180 caps 06/16/25 sertraline 100 mg tablet 200 mg (2 x 100 mg) PO DAILY 90 06/19/25 days #180 tabs Allergies Allergy/AdvReac Type Severity Reaction Status Date / Time lisinopril (LISINOPRIL) Allergy Unknown TONGUE Verified 07/05/25 02:16 SWELLING, anaphylaxis, swelling Review of Systems Review of Systems: Yes all other systems are reviewed and are negative [facility] Past Medical History Medical History Abdominal aortic aneurysm Type 2 diabetes mellitus with unspecified complications History of kidney stones On beta marii at home PONV (postoperative nausea and vomiting) Chronic back pain Depression Hx of myocardial infarction CAD (coronary artery disease) Surgical History Status post cardiac catheterization Hx of colonoscopy History of amputation of finger of left hand History of back surgery History of lithotripsy Hx of coronary angioplasty Hx of tonsillectomy Family History Family History Father CAD (coronary artery disease) HTN (hypertension) Hyperlipidemia Mother No problems noted. Brother No problems noted. Daughter No problems noted. Daughter No problems noted. Social History Social History Housing: House Alcohol intake: current Alcohol intake frequency: 3 or more drinks per day Alcohol type: beer and hard liquor Patient Tobacco Use Status: Current everyday Tobacco user Tobacco use type: Cigarette Cigarette Packs Per Day: 0.5 Cigarettes Per Day: 10.0 Smoked in Last 30 Days: Yes e-Cigarette/Vaping Use: Never Used Use of substances other than those prescribed or required for medical reasons: No Advance Directives: No Advance Directives Information Provided: Yes service: No Current occupational status: retired Cognitive needs: No Hearing needs: No Vision needs: No Physical Exam ED Vital Signs: Vital Signs - 24 hr 07/05/25 02:08 07/05/25 03:46 07/05/25 07:24 Temperature 97.5 F 97.8 F 98.2 F Pulse Rate 84 69 70 Respiratory Rate 20 16 16 Blood Pressure 153/89 H 137/75 132/73 Pulse Oximetry 95 95 96 Oxygen Delivery Method Room Air Room Air Room Air 07/05/25 10:44 07/05/25 13:07 Temperature 97.9 F 97.7 F Pulse Rate 70 66 Respiratory Rate 16 18 Blood Pressure 139/76 136/83 Pulse Oximetry 96 96 Oxygen Delivery Method Room Air Room Air BMI result Body Mass Index 29.5 Const Other: The patient is a robust looking 59-year-old male. He is awake, alert, pleasant, cooperative. No distress. Orientation/consciousness: patient oriented x3 HENMT Other: The face is symmetrical. ?Mucous membranes moist. Eyes Other: Pupils are round equal, conjunctivae are clear, extraocular movements intact Neck Neck: Yes normal visual inspection, Yes full ROM and Yes no JVD Resp Other: No increased work of breathing. Normal respiratory effort. There is expiratory wheezing bilaterally, more pronounced on the right side. Cardio Rate: regular rate Rhythm: regular rhythm Heart sounds: S1 normal heart sound present and S2 normal heart sound present GI Other: Abdomen is soft and nontender Skin Other: The skin is dry and unremarkable Neuro General: patient oriented x3, gait normal, tone normal, moves all extremities, no focal motor deficits and CN's II-XI intact bilaterally Extrem Other: There is no calf swelling or tenderness. No asymmetry. No peripheral edema. Medications Administered Discontinued Medications Generic Name Dose Route Start Last Admin Trade Name Freq PRN Reason Stop Dose Admin Sodium Chloride 1,000 mls @ 999 mls/hr 07/05/25 07:15 07/05/25 08:32 Ns IV 07/05/25 08:15 Infused .Q1H1M FIDELINA Infusion Iohexol 65 ml 07/05/25 07:40 07/05/25 07:41 Iohexol 350 Mg/Ml 100 Ml Infus..Btl IV 07/05/25 07:41 65 ml ONCE ONE Administration Medical Decision Making Medical Decision Making [facility] Narrative: The patient is a 59-year-old male who presents with 3 days of nocturnal hemoptysis. He describes having hemoptysis only after he has been lying down for awhile at night. He has no hemoptysis during the day. He does not have any symptoms of a respiratory infection and he does not feel ill otherwise. He is on clopidogrel because of a coronary stent that was placed 17 months ago. His basic blood work including a CBC is unremarkable. His hemoglobin is 14.9. He does not seem unstable in any way and he looks entirely well. He was not having any ongoing hemoptysis in the emergency department. A CT pulmonary angiogram was done to evaluate his hemoptysis. There is a focal area in the right lower lobe of airspace opacities which I think represent hemorrhage rather than pneumonia. He has no symptoms of pneumonia. Additionally he has atypical vascularity to this portion of his long. He seems to have a branch off the celiac trunk associated with this portion of the lung. I was able to send the images of his CAT scan to [facility] and spoke to the vascular surgeon on-call who was puzzled by these findings and thought that transfer to [facility] with the vascular and a thoracic consult would be appropriate. Unfortunately [facility] was at capacity and could not accept him in transfer. They were willing to put him on a waiting list. I then spoke to Dr. Ivey of our radiology department who thought that this might represent a case of pulmonary sequestration and that embolization in interventional radiology at this hospital might be appropriate. The patient has a history of coronary disease and is on clopidogrel because of a coronary stent placed 17 months ago. I spoke to Dr. Javier about stopping the patient's clopidogrel. Dr. Javier felt this would be reasonable given how far out he is from his procedure. The patient ultimately grew tired of waiting in the emergency room. He had arrived at 02:00 and was in the emergency room for over 10 hours. During that time he had felt perfectly well and had had no hemoptysis. He ultimately decided he would not want to wait in the hospital anymore for any procedure. He will therefore be discharged with instructions to stop clopidogrel. Additionally he is given the contact information for interventional radiology to try to arrange an outpatient evaluation and possible embolization procedure. He was given the phone number [phone] to contact for possible outpatient referral. If he is worse he should return to the emergency room or possibly go to the emergency room at [facility]. Lab Data 07/05/25 02:29 07/05/25 02:29 Labs: Lab Results 07/05/25 07/05/25 Range/Units 02:29 03:13 WBC 8.7 (4.8-10.8) X10*3/uL RBC 4.36 L (4.60-5.80) X10*6/uL Hgb 14.9 (14.0-18.0) g/dl Hct 40.9 L (42.0-52.0) % MCV 93.8 (80.0-98.0) fL MCH 34.2 H (27.0-33.0) pg MCHC 36.4 H (31.0-36.0) g/dl RDW 12.9 (11.0-16.0) % Plt Count 165 (160-400) X10*3/uL MPV 9.3 L (9.4-12.4) fL Immature Gran % (Auto) 0.4 (0.0-0.4) % Neut % (Auto) 48.2 (45-73) % Lymph % (Auto) 40.2 H (20-40) % Stone % (Auto) 8.9 (2-11) % Eos % (Auto) 1.6 (0-4) % Baso % (Auto) 0.7 (0-2) % Lymph # (Auto) 3.4 (1.2-4.9) X10*3/uL Stone # (Auto) 0.8 (0.1-1.2) X10*3/uL Eos # (Auto) 0.1 (0.0-0.4) X10*3/uL Baso # (Auto) 0.1 (0.0-0.2) X10*3/uL Abs Immat Gran (auto) 0.03 (0.00-0.03) X10*3/uL Absolute Neuts (auto) 4.1 (2.0-8.3) x10*3/uL Absolute Nucleated RBC 0.000 (0.0-0.012) X10*3/uL Nucleated RBC % (auto) 0.0 (0.0-0.2) /100WBC PT 9.4 L (10.9-12.4) SEC INR 0.8 L (0.9-1.1) Sodium 139 (135-145) mmol/L Potassium 4.6 (3.3-5.1) mmol/L Chloride 107 (96-108) mmol/L Carbon Dioxide 22 (22-29) mmol/L Anion Gap 15 (12-20) BUN 21 H (9-16) mg/dL Creatinine 1.40 (0.5-1.4) mg/dL Estim Creat Clear Calc 75.3 Estimated GFR 52 Random Glucose 272 H (60-115) mg/dL Calcium 9.0 (8.4-10.2) mg/dL Total Bilirubin 0.4 (0.0-1.0) mg/dL AST 24 (5-37) U/L ALT 29 (0-40) U/L Alkaline Phosphatase 99 (39-117) U/L Troponin I High Sens 6.6 (<3.5-35.0) ng/L C-Reactive Protein 0.18 (< or = 0.50) mg/dL B-Natriuretic Peptide 29 (<100) pg/mL Total Protein 6.7 (6.5-8.0) g/dL Albumin 4.5 (3.5-5.0) g/dL Influenza Type A (PCR) NEGATIVE (Negative) Influenza Type B (PCR) NEGATIVE (Negative) RSV RNA Qual (PCR) NEGATIVE (Negative) SARS-CoV-2 RNA (RT-PCR) NEGATIVE (Negative) Independent Interpretation I performed an independent interpretation of an: EKG Interpretation: EKG at 02:16 shows normal sinus rhythm at 80 beats per minute. It is a normal EKG. Discharge Plan Discharge Clinical Impression: Hemoptysis Patient Disposition: Home, Self-Care Instructions: Coughing Up Blood (Hemoptysis) (ED) Additional Instructions: It seems as though the blood you has been coughing up is coming from an abnormal blood vessel going to your right lower lung. You will probably require a procedure to stop this from happening. You may be able to have this taken care of at this hospital through our Interventional Radiology office. Please call [phone] to see if you can set up an appointment as an outpatient. In the meantime you should hold your clopidogrel (Plavix). If you get significantly worse at any time you will need to be seen again. It would probably be wiser to go to the emergency room at [facility] as they have more services than this hospital. Prescriptions: No Action (DME) blood-glucose meter [FreeStyle Lite Meter] Kit See Rx Instructions .Route Qty: 1 0RF Rx Instructions: Use to check fasting blood sugar daily (DME) lancets [FreeStyle Lancets] 28 gauge misc See Rx Instructions .Route Qty: 100 0RF Rx Instructions: Use to check fasting blood sugar daily. (DME) FreeStyle Lite Strips Strip See Rx Instructions .Route Qty: 100 0RF Rx Instructions: Use to check fasting blood sugar daily. famotidine 40 mg/5 mL (8 mg/mL) suspension for reconstitution 20 mg PO BID Qty: 150 0RF amlodipine 5 mg tablet 5 mg PO DAILY 90 Days Qty: 90 1RF pioglitazone 45 mg tablet 45 mg PO DAILY Qty: 90 0RF metoprolol succinate 50 mg tablet extended release 24 hr 50 mg PO DAILY Qty: 90 3RF quetiapine [Seroquel] 50 mg tablet 50 mg PO BEDTIME 90 Days Qty: 90 0RF atorvastatin 80 mg tablet 80 mg PO DAILY Qty: 90 0RF clopidogrel 75 mg tablet 75 mg PO DAILY Qty: 90 3RF glipizide 10 mg tablet 10 mg PO BID 90 Days Qty: 180 0RF sertraline 100 mg tablet 200 mg PO DAILY 90 Days Qty: 180 0RF aspirin [Adult Low Dose Aspirin] 81 mg tablet,delayed release (DR/EC) 81 mg PO DAILY ezetimibe [Zetia] 10 mg tablet 10 mg PO DAILY Qty: 90 3RF Referrals: Beni Baker MD [Physician, Interventional Radiology] Zoila Damian MD [Physician, Internal Medicine] Ankur Javier MD [Physician, Cardiology] Interventions: ED Discharge Assessment Last Done: 07/05/25 13:07 Discharge Date/Time: 07/05/25 13:09 Print Language: German
[2025-07-05 07:24] VITALS: BP 132/73; PULSE 70; RESP 16; TEMP 36.8; O2SAT 96
[2025-07-05] MEDS: iohexoL 350 MG/ML 100 ML INFUS..BTL 65 ML IV (07:41)
[2025-07-05 09:41] LABS: MANUAL DIFF FLAG NO
[2025-07-05 09:52] LABS: Imm Gran Abs Auto 0.03 X10*3/uL (0.00-0.03); Imm Gran Pct Auto 0.4 % (0.0-0.4); Lymphocytes Absolute Auto 3.4 X10*3/uL (1.2-4.9)
[2025-07-05 10:44] VITALS: BP 139/76; PULSE 70; RESP 16; TEMP 36.6; O2SAT 96
[2025-07-05 13:07] VITALS: BP 136/83; PULSE 66; RESP 18; TEMP 36.5; O2SAT 96
== END 2025-07-05 13:09 | disposition home or self-care (01) ==
PROVIDERS: Emergency Provider Emergency Medicine
DX: R04.2 Hemoptysis (principal); I25.10 Atherosclerotic heart disease of native coronary artery without angina pectoris; R06.02 Shortness of breath; E11.9 Type 2 diabetes mellitus without complications; R94.31 Abnormal electrocardiogram [ECG] [EKG]; F17.210 Nicotine dependence, cigarettes, uncomplicated; R11.0 Nausea; Z79.899 Other long term (current) drug therapy; Z03.818 Encounter for observation for suspected exposure to other biological agents ruled out
CPT/HCPCS: 36415; 71046; 71275; 80053; 83880; 84484; 85025; 85027; 85610; 86140; 87637; 93005; 96360; 99284; 99285; Q9967

== ENCOUNTER → 2025-07-05 02:16 | Outpatient (BNV) | payer OTHER, SELFPAY | PROVIDERS: Emergency Provider Emergency Medicine; Visit Provider Internal Medicine | DX: R06.02 Shortness of breath (principal) | CPT/HCPCS: 93010 ==

== ENCOUNTER 2025-10-18 13:38 | Outpatient (AMB) | payer OTHER, SELFPAY ==
[2025-10-18 13:44] VITALS: BP 128/80; PULSE 78; O2SAT 96; BMI 29.1
--- NOTE | 2025-10-18 13:44 | A.OFFPC_ITS ---
Vital Signs 10/18/25 13:44 Height 6 ft 4 in Weight 239 lb 4 oz BMI 29.1 BP 128/80 Blood Pressure Location Lt brachial Position Sitting Pulse 78 Pulse Source Pulse Oximeter Pulse Oximetry (%) 96 Intake Visit Reasons: Annual PE Allergies lisinopril (LISINOPRIL) Allergy (Unknown, Verified 10/18/25 13:44) TONGUE SWELLING, anaphylaxis, swelling Medication List - Last Reconciled 10/18/25 by Zoila Damian MD amlodipine 5 mg PO DAILY 90 days aspirin (Adult Low Dose Aspirin) 81 mg PO DAILY atorvastatin 80 mg PO DAILY blood sugar diagnostic (FreeStyle Lite Strips) Use to check fasting blood sugar daily. blood-glucose meter (FreeStyle Lite Meter kit) Use to check fasting blood sugar daily clopidogrel 75 mg PO DAILY ezetimibe (Zetia) 10 mg PO DAILY famotidine 20 mg (2.5 mL) PO BID glipizide 10 mg PO BID 90 days lancets (FreeStyle Lancets) Use to check fasting blood sugar daily. metoprolol succinate ER 50 mg PO DAILY pioglitazone 45 mg PO DAILY quetiapine (Seroquel) 50 mg PO BEDTIME 90 days sertraline 200 mg (2 x 100 mg) PO DAILY 90 days Tobacco use date assessed: 03/01/25 Dental Screening Dental Screen Date: 03/01/25 HPI HPI Comments History of Present Illness Details History of Present Illness The patient is a 60-year-old male presenting for a follow-up appointment. Hemoptysis and Congenital Pulmonary Vascular Anomaly: - On July 21, the patient went to [facility] emergency room at [place] for hemoptys is. - A CT pulmonary angiogram was performed , which showed a focal area of airspace opacity in the right lower lobe, thought to represent hemorrhage rather than pneumonia, as well as atypical vascularity from a branch of the celiac trunk to this lung portion. - The vascular surgeon environmental protection officer at [facility] was consulted but was puzzled by the findings, and the patient could not be transferred. - An interventional radiologist was also involved, and they recommended follow- up. - The patient's surveyor helper rod, Dr. Dusty rivera, was consulted regarding stopping his blood thinner, clopidogrel, which the patient did stop temporarily. - The hemoptysis resolved, and the patie nt left the emergency room before further intervention could occur, subsequently restarting his clopidogrel on his own. - The patient later attempted to contact interventional radiology at [facility] but was told they would not accept his health insurance. 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 Type 2 Diabetes Mellitus: - The patient has a history of type 2 di abetes. - His hemoglobin A1c was 8.0 in June, and a more recent value is 8.3, indicating poor glycemic control. - His current medications for diabetes a re pioglitazone 50 mg and glipizide 10 mg BID. Other Medical History: - The patient is a current smoker and sidhu s been advised to quit. - He has a history of a lipid disorder, hypertension, abdominal aneurysm, stented coronary artery disease, major depression, and anxiety. - He is followed by a surveyor helper rod. - He is due for another set of labs and a colonoscopy with Dr. Fonseca. - In 2011, he lost two fingers (index an d another) on his left hand. 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 - Transportation: The patient does not h ave a car and relies on his for transportation. Health Maintenance - He is due for a colonoscopy with Dr. Hafsa hernandez. - The patient states he has received his flu vaccine. - The patient is due for a repeat set of labs. - Smoking cessation was advised. [place] of Care - Assistant Commissioner: Dr. Fonseca (for col onoscopy) - Animal Ride Attendant: Dr. Liu [facility] Medical History Abdominal aortic aneurysm Type 2 diabetes mellitus with unspecified complications History of kidney stones On beta marii at home PONV (postoperative nausea and vomiting) Chronic back pain Depression Hx of myocardial infarction CAD (coronary artery disease) Surgical History Status post cardiac catheterization Hx of colonoscopy History of amputation of finger of left hand History of back surgery History of lithotripsy Hx of coronary angioplasty Hx of tonsillectomy Family History Father CAD (coronary artery disease) HTN (hypertension) Hyperlipidemia Mother No problems noted. Brother No problems noted. Daughter No problems noted. Daughter No problems noted. Social History Housing: House Alcohol intake: current Alcohol intake frequency: 3 or more drinks per day Alcohol type: beer and hard liquor Patient Tobacco Use Status: Current everyday Tobacco user Tobacco use type: Cigarette Cigarette Packs Per Day: 0.5 Cigarettes Per Day: 10.0 e-Cigarette/Vaping Use: Never Used service: No Current occupational status: retired Cognitive needs: No Hearing needs: No Vision needs: No Questionnaire PHQ-9 Over the last 2 weeks, how often have you been bothered by any of the following problems? 2. Feeling down, depressed, or hopeless: not at all Source: Developed by Drs. Arnol Reynolds, Clary Martinez, Jose Coleman and colleagues, with an educational cornelio from [email or web address]. Thrive Questionnaire Date Thrive assessed: 12/07/24 I am a: Patient What is your living situation today?: I have a steady place to live Within the past 12 months, did the food you bought not last and you didn't have the money to get more?: I choose not to answer this question Within the past 12 months, did you worry whether your food would run out before you got money to buy more?: I choose not to answer this question Do you have trouble paying for medicines?: Yes Do you have trouble getting transportation to medical appointments?: Yes Do you have trouble paying your heating and electricity bill?: No Do you have trouble taking care of your child, family member or friend?: No Do you have trouble with day-to-day activities such as bathing, preparing meals, shopping, managing finances, etc.?: No Are you currently unemployed and looking for a job?: No Are you interested in more education?: No Please select the resources that you would like help with: None Currently or been in a relationship where the following occur: I choose not to answer THRIVE Score: 1 UGO-7 AMB Questionnaire UGO-7 Date UGO - 7 assessed: 12/07/24 Source: Developed by Drs. Arnol Reynolds, Clary Martinez, Jose Coleman and colleagues, with an educational cornelio from [email or web address]. Review of Systems Narrative Review of Systems - General: No fever no chills - Neurological: No headaches no dizziness - Ear nose throat: No sore throat no hearing difficulty no ear pain - Cardiovascular: No syncope, no chest pain, no palpitations - Gastrointestinal: No nausea vomiting or diarrhea - Endocrine: No polyuria polydipsia no heat intolerance - Genitourinary: No dysuria - Skin: No new complaints Physical exam (Primary Care) Vital Signs: Last Vital Signs Pulse 78 10/18/25 13:44 BP 128/80 10/18/25 13:44 Pulse Ox 96 10/18/25 13:44 BMI result Body Mass Index 29.1 Tobacco/Smoking Status: Tobacco use Status Tobacco use date assessed 03/01/25 10/18/25 13:44 Patient Tobacco Use Status Current everyday Tobacco 10/18/25 13:44 Tobacco use type Cigarette 10/18/25 13:44 e-Cigarette/Vaping Use Never Used 10/18/25 13:44 Thrive Assessment: Date of Thrive Assessment Date Thrive assessed 12/07/24 10/18/25 13:44 Currently or been in a relationship where the following occur: I choose not to answer Narrative Diagnostic results - Vitals: Blood pressure 128/80 mmHg, pulse 78 bpm. - Labs (June): Electrolytes and creatinine were normal. - Labs (June): GFR was 52. - Labs (June): Hemoglobin A1c was 8.0. - Labs: Recent hemoglobin A1c is 8.3. - Imaging (ER visit, 07/21): CT pulmonary angiogram revealed a focal area of airspace opacity in the right lower lobe, suspected to be hemorrhage, and atypical vascularity to this portion of the lung from a branch of the celiac trunk. Physical Exam General: Cooperative, healthy appearing, comfortable, no acute distress Orientation: Patient oriented x3 Head: Normal to inspection Ears: Within normal limit visually Nose: Normal external nose present Face and sinus: Normal facial exam Eyes: Appearance normal, extraocular movement intact pupils reactive Neck: Normal visual inspection and supple Respiratory: Normal respiratory effort and able to speak in complete sentences. Clear to auscultation, no stridor Cardiovascular: S1 and S2 RRR GI: Normal to inspection. Soft to palpation and nontender Skin: Turgor normal, no acute findings Neuro: Patient oriented x3, motor sensory intact, balance intact, tandem pass Extremities: Normal to inspection, patient has lost two fingers on the left hand (index and another) since 2011. . Results AMB Hemoglobin A1c AMB Hemoglobin A1c 8.3 % Last Edit by Johnny Herrera CMA on 10/18/25 14: 08 Results Reviewed Results Reviewed: Laboratory Last Values Hgb A1c (Clinic) 8.3 % (4.0-6.0) H 10/18/25 13:50 Coding Level of Care Code Est Pt Level 4 (25765) Est Pt Prev Care 40-64y(11716) Diagnoses Encounter for general adult medical examination with abnormal findings Z00.01 Type 2 diabetes mellitus with unspecified complications E11.8 Lipid disorder E78.9 Infrarenal abdominal aortic aneurysm (AAA) without rupture I71.43 Abdominal aorta location: infrarenal aorta Presence of rupture: without rupture Hypertension, essential I10 Recurrent major depressive disorder, in partial remission F33.41 Active/Remission status: in partial remission Anxiety, generalized F41.1 Colon cancer screening Z12.11 Assessment & Plan Assessment & Plan (1) Encounter for general adult medical examination with abnormal findings: Code(s): Z00.01 - Encounter for general adult medical examination with abnormal findings Category: Medical (2) Type 2 diabetes mellitus with unspecified complications: Code(s): E11.8 - Type 2 diabetes mellitus with unspecified complications Category: Medical (3) Lipid disorder: Code(s): E78.9 - Disorder of lipoprotein metabolism, unspecified Category: Medical (4) Abdominal aortic aneurysm: Code(s): I71.40 - Abdominal aortic aneurysm, without rupture, unspecified Category: Medical Qualifiers: Abdominal aorta location: infrarenal aorta Presence of rupture: without rupture Qualified Code(s): I71.43 - Infrarenal abdominal aortic aneurysm, without rupture (5) Hypertension, essential: Code(s): I10 - Essential (primary) hypertension Category: Medical (6) Major depression, recurrent: Code(s): F33.9 - Major depressive disorder, recurrent, unspecified Category: Medical Qualifiers: Active/Remission status: in partial remission Qualified Code(s): F33.41 - Major depressive disorder, recurrent, in partial remission (7) Anxiety, generalized: Code(s): F41.1 - Generalized anxiety disorder Category: Medical (8) Colon cancer screening: Code(s): Z12.11 - Encounter for screening for malignant neoplasm of colon Category: Medical Plan Patient Instructions - You will be started on a weekly injection called Trulicity for your diabetes. - Continue taking your current oral diabetes medications (pioglitazone and glipizide). - chemical lab supervisor the Trulicity prescription from the pharmacy and bring it to the clinic. - An appointment will be made for you with our nurse navigator, who will teach you how to give yourself the injection. - We will check if your insurance covers Trulicity. If it does not, we may need to put you on insulin instead. - Please stop smoking. - We will book an appointment for you to have a colonoscopy. - Call the office if you have any problems picking up your new prescription. f/u 4 M Orders: Orders Comprehensive Met. Panel Today E11.8 - Type 2 diabetes mellitus with unspecified complications, E78.9 - Disorder of lipoprotein metabolism, unspecified, F33.41 - Major depressive disorder, recurrent, in partial remission, F41.1 - Generalized anxiety disorder, I10 - Essential (primary) hypertension, I71.43 - Infrarenal abdominal aortic aneurysm, without rupture, Z00.01 - Encounter for general adult medical examination with abnormal findings AMB Hemoglobin A1c Today Z13.9 - Encounter for screening, unspecified Complete Blood Count Auto Diff Today E11.8 - Type 2 diabetes mellitus with unspecified complications, E78.9 - Disorder of lipoprotein metabolism, unspecified, F33.41 - Major depressive disorder, recurrent, in partial remission, F41.1 - Generalized anxiety disorder, I10 - Essential (primary) hypertension, I71.43 - Infrarenal abdominal aortic aneurysm, without rupture, Z00.01 - Encounter for general adult medical examination with abnormal findings Referrals Gastroenterology Referral Z12.11 - Encounter for screening for malignant neoplasm of colon Medications: New dulaglutide (Trulicity) 0.75 mg (0.5 mL) subcut QWEEK 2.5 mL 0RF 30 days
--- OUTSIDE RECORDS SUMMARY | 2025-10-19 01:39 | XMS_ITS | Clinical Summary ---
Author Organization [facility], Address [address] [place] [address] [place] [address] Phone Care Team Providers Care Turf Farmer Name Role Phone Zoila Damian MD Primary [...] complete this topic Insurance [employer] Care Teams Turf Farmer Relationship Specialty Start Date End Date Zoila Damian MD [address] [place] [address] PCP - General Internal Medicine 11/15/19
--- OUTSIDE RECORDS SUMMARY | 2025-10-19 01:39 | XMS_ITS | Encounter Summary ---
Author Organization [facility], Address [address] [place] [address] Phone Care Team Providers Care Arcade Game Technician Name Role Phone Zoila Damian MD Primary Care Provider [phone] Reason for Visit * Reason Comments Med Refill Encounter Details Date Type Department Care Team (Late st Contact Info) Description 08/21/2021 Refill [facility] [address] [place] [address] Yuki Hazel MD [place] [...] (HCC) documented in this encounter Care Teams Arcade Game Technician Relationship Specialty Start Date End Date Zoila Damian MD 1963 [facility] [place] [address] PCP - General Internal Medicine 11/15/19 documented as of this encounter
--- OUTSIDE RECORDS SUMMARY | 2025-10-19 01:39 | XMS_ITS | Encounter Summary ---
Author Organization [facility], Address [address] [place] [address] Phone Care Team Providers Care Rotary Cutter Name Role Phone Zoila Damian MD Primary Care Provider [phone] Reason for Visit * Reason Comments Med Refill Encounter Details Date Type Department Care Team (Late st Contact Info) Description 02/23/2021 Refill [facility] [address] [place] [address] Yuki Hazel MD [place] in [...] (HCC) documented in this encounter Care Teams Rotary Cutter Relationship Specialty Start Date End Date Zoila Damian MD 1963 [facility] [place] [address] PCP - General Internal Medicine 11/15/19 documented as of this encounter
--- OUTSIDE RECORDS SUMMARY | 2025-10-19 01:40 | XMS_ITS | Encounter Summary ---
Author Organization [facility], Address [address] [place] [address] Phone Care Team Providers Care Lead Python Developer Name Role Phone Zoila Damian MD Primary Care Provider [phone] Reason for Visit * Reason Comments Med Refill Encounter Details Date Type Department Care Team (Late st Contact Info) Description 02/01/2021 Refill [facility] [address] [place] [address] Yuki Hazel MD [place] in [...] (HCC) documented in this encounter Care Teams Lead Python Developer Relationship Specialty Start Date End Date Zoila Damian MD 1963 [facility] [place] [address] PCP - General Internal Medicine 11/15/19 documented as of this encounter
--- OUTSIDE RECORDS SUMMARY | 2025-10-19 01:40 | XMS_ITS | Encounter Summary ---
Author Organization [facility], Address [address] [place] [address] Phone Care Team Providers Care Air Twister Winder Name Role Phone Zoila Damian MD Primary Care Provider [phone] Reason for Visit * Reason Comments Med Refill Encounter Details Date Type Department Care Team (Late st Contact Info) Description 02/27/2021 Refill [facility] [address] [place] [address] Yuki Hazel MD [place] in [...] (HCC) documented in this encounter Care Teams Air Twister Winder Relationship Specialty Start Date End Date Zoila Damian MD 1963 [facility] [place] [address] PCP - General Internal Medicine 11/15/19 documented as of this encounter
--- OUTSIDE RECORDS SUMMARY | 2025-10-19 01:40 | XMS_ITS | Clinical Summary ---
Author Organization [facility] Address [address] [address] Phone Care Team Providers Care High Lift Driver Name Role Phone Alli Swartz DO Primary Care Provider [phone] Allergies Active Allergy Reactions Criticality Noted Date [...] HEPATITIS C SCREENING 1981 HIV ONE-TIME SCREENING (18-65 YEARS) 1981 COLOGUARD 2008 COLONOSCOPY 2008 COLORECTAL CANCER SCREENING 2008 FIT TEST 2008 FOBT 2008 SIGMOIDOSCOPY 2008 VIRTUAL COLONOSCOPY 2008 PNEUMOCOCCAL VACCINES (50+ years) (2 of 2 - PCV) 12/18/2018 12/18/2017 CREATININE LEVEL 09/06/2019 09/06/2018 LIPID PANEL 09/06/2023 09/06/2018 INFLUENZA VACCINE (#1) 2025 , 07/25/2020, 08/05/2019, Additional history exists COVID-19 VACCINE (3 - season) 2025 04/10/2021, 03/20/2021 Adult Td,Tdap Booster 11/19/2027 11/19/2017 [...] AM EDT Mixed hyperlipidemia BASIC METABOLIC PANEL (BMP) Routine 09/06/2018 9:09 AM EDT Mixed hyperlipidemia from Last 3 Months or Most Recently Relevant to Health Maintenance Results * Lipid panel (09/06/2018 9:09 AM EDT) HDL 35 mg/dL [facility] Comment: Interpretation: Risk Level Males Decreased >45 mg/dL Average 40-45 mg/dL Increased <40 mg/dL CHOLESTEROL 137 0 - 240 mg/dL [facility] TRIGLYCERIDES 121 30 - 160 mg/dL [facility] LDL 78 50 - 129 mg/dL [facility] Comment: LDL levels in terms of risk for coronary heart disease: <100 mg/dL: Optimal 100-129 mg/dL: Near or above optimal 130-159 mg/dL: Borderline high 160-189 mg/dL: High >190 mg/dL: Very High CARDIAC RISK RATIO 3.9 3.4 - 5.0 C [facility] Blood 09/06/2018 9:09 AM EDT 09/06/2018 9:12 AM EDT us Ronaldo Ruiz MD LAB BLOOD BKR ORDERABLES Final Result [facility] [address] [place] [address] * (ABNORMAL) Basic metabolic panel (09/06/2018 9:09 AM EDT) SODIUM 141 133 - 146 mmol/L [facility] CHLORIDE 103 96 - 108 mmol/L [facility] POTASSIUM 4.8 3.3 - 5.1 mmol/L [facility] CO2 24 21 - 35 mmol/L [facility] BUN 17 6 - 19 mg/dL [facility] CREATININE 1.10 0.5 - 1.5 mg/dL [facility] GLUCOSE 206(H) 70 - 99 mg/dL [facility] CALCIUM 9.4 8.4 - 10.3 mg/dL [facility] EGFR 76 >59 mL/min/1.7 3m2 [facility] Comment:If patient is black, multiply result by 1.159. Estimated glomerular filtration rate calculated using the CKD-EPI equation. ANION GAP 19 10 - 20 mmol/L [facility] Blood 09/06/2018 9:09 AM EDT 09/06/2018 9:12 AM EDT us Ronaldo Ruiz MD LAB BLOOD BKR ORDERABLES Final Result [facility] [address] [place] [address] from Last 3 Months or Most Recently Relevant to Health Maintenance Insurance CIGNA PPO CIGNA PPO CIGNA PPO CIGNA PPO CIGNA PPO CIGNA PPO CIGNA PPO CIGNA PPO CIGNA PPO Member Subscriber Plan / Payer ( fective 2006-Present) Name:Patrick Fam Relation to Subscriber:Self Name:PATRICK FAM Payer ID:[id number] (NAIC) Type:PPO Address: [address] [place] [id number] Care Teams High Lift Driver Relationship Specialty Start Date End Date Alli Swartz DO [address] [place] [address] PCP - General 12/03/17 Additional Source Comments The information contained in this document represents components of the legal health record. It is not the complete legal health record.[facility]
--- OUTSIDE RECORDS SUMMARY | 2025-10-19 01:40 | XMS_ITS | Patient Health Record ---
Author Organization [facility] Address [address] [place] [address] Care Team Providers Care Assistant Credit Manager Name Role Phone Rickie JACOB, [facility] Primary Care Provider Arnol Randall [phone] Allergies Allergen (clinical drug ingredient) Drug/Non Drug Allergy documented on EMR Reaction Allergy Type Onset Date Status lisinopril Lisinopril Unknown Drug Allergy Activ e Reason For Referral No Information Medications Medication SIG (Take, Route, Frequency, Duration) Notes Start Date End Date Status Metoprolol Succinate ER 100 MG Tablet Extended Release 24 Hour 1 tablet Orally Once a day Active glipiZIDE 5 MG Tablet 1 tablet Orally Once a day Active Lipitor 80 MG Tablet 1 tablet Orally Once a day Active metFORMIN HCl 1000 MG Tablet 1 tablet with meals Orally Twice a day Active amLODIPine Besylate 5 MG Tablet 1 tablet Orally Once a day A ctive Losartan Potassium A ctive Potassium Citrate ER 10 MEQ (1080 MG) Tablet Extended Release 1 tablet with meals Orally Three times a day Active Sertraline HCl Activ e Immunizations Vaccine Route Administration Date Status Comme nts Influenza Unknown 08/30/2020 Administered Social History Tobacco Use: Social History Observation Description Date Details (start date - stop date) Current Smoker NA - NA Social History Drugs/Alcohol: Social Info Question Answer Notes Alcohol Screen Did you have a drink containing alcohol in the past year? Yes How often did you have a drink containing alcohol in the past year? Monthly or less (1 point) How many drinks did you have on a typical day when you were drinking in the past year? 1 or 2 drinks (0 point) How often did you have 6 or more drinks on one occasion in the past year? Never (0 point) Points 1 Interpretation Negative Tobacco Use: Social Info Question Answer Notes Tobacco Use/Smoking Patient is a current smoker How often do you smoke cigarettes? every day How many cigarettes a day do you smoke? 6-10 How soon after you wake up do you smoke your first cigarette? within 5 minutes Are you interested in quitting? Not ready to quit Additional Details Category Social Info Options Details Miscellaneous: Marital status: Occupation: retired Section Notes: Smoker;no sig alcohol Smoker; drinks occasionally Uses medical marijuana Problems Problem Type SNOMED Code ICD Code Onset Dates Problem Status W/U Status Risk Notes Problem Screening for malignant neoplasm of colon (090647060) Encounter for screening for malignant neoplasm of colon (Z12.11) Active confirmed Problem History of adenomatous polyp of colon (130549730) History of adenomatous polyp of colon (Z86.010) Active confirmed Problem Diarrhea (73099688) Diarrhea (R19.7) Active confirmed Problem Preprocedural examination (260693132656453) Preprocedural examination (Z01.818) Active confirmed Plan Of Treatment Pending Test Test Name Order Date CELIAC PANEL #10 09/26/2020 Future Test Test Name Order Date COLONOSCOPY 05/08/2015 COLONOSCOPY 09/26/2020 Insurance Providers Payer Name Payer Address Payer Phone Subscriber Number Group Number Insured Name Patient Relationship to Insured Coverage Start Date Coverage End Date LOIS [address] [place] [address] [id number] ASHLEY FAM Self - patient is the insured Medical (General) History Medical History History ICD Code ME 2007--angioplasty HTN Denies CVA,Lung disease,renal disease Hyperlipidemia Kidney stones--cystoscopies and/or ESWL NIDDM 2017 Back Surgery Screening colonoscopy in 07/01 015 with removal of 2 small tubular adenomas removed Depression Surgical History Surgery Date(Month/Year) Back Surgery 2017 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
== END 2025-10-18 14:10 | disposition home or self-care (01) ==
LOC: HO.HMCC 13:39
PROVIDERS: PCP Internal Medicine; Visit Provider Internal Medicine
DX: Z00.01 Encounter for general adult medical examination with abnormal findings (principal); E11.8 Type 2 diabetes mellitus with unspecified complications; E78.9 Disorder of lipoprotein metabolism, unspecified; I71.43 Infrarenal abdominal aortic aneurysm, without rupture; I10 Essential (primary) hypertension; F33.41 Major depressive disorder, recurrent, in partial remission; F41.1 Generalized anxiety disorder; Z12.11 Encounter for screening for malignant neoplasm of colon

== ENCOUNTER → 2025-10-18 13:38 | Outpatient (BNVA) | payer OTHER, SELFPAY | PROVIDERS: PCP Internal Medicine; Visit Provider Internal Medicine | DX: Z00.01 Encounter for general adult medical examination with abnormal findings (principal); Z12.11 Encounter for screening for malignant neoplasm of colon; E11.8 Type 2 diabetes mellitus with unspecified complications; E78.9 Disorder of lipoprotein metabolism, unspecified; I71.43 Infrarenal abdominal aortic aneurysm, without rupture; I10 Essential (primary) hypertension; F33.41 Major depressive disorder, recurrent, in partial remission; F41.1 Generalized anxiety disorder | CPT/HCPCS: 83036 ==